=== PATIENT | female | born 1945 | race Caucasian/White ===

== ENCOUNTER 2016-09-18 05:56 | Day surgery (SDC) | payer OTHER ==
[~2016-09-18] VITALS: Ht 153.7 cm; Wt 70.0 kg
[~2016-09-18 05:56] MED LIST: ADVA100A INH; ALBU6.7H INH; CLON0.1T PO; GLIM2TAB PO; LEVO112T2 PO; METO50TA PO; OMEP40CA2 PO
[2016-09-18] MEDS ORDERED: FISHCAP4 PO (06:52)
[2016-09-18] MEDS ORDERED: CHLORHEXIDINE GLUCONATE 2 % 1 PACK (2 CLOTHS) TOPICAL SCH (07:00)
[2016-09-18] MEDS ORDERED: POVIDONE IODINE 5% (ANTISEPSIS KIT) 4 APPLICATIONS EACH NARE SCH (07:00)
[2016-09-18] MEDS ORDERED: MUPIROCIN 2% OINT 1 APPLIC/GM SYR EACH NARE SCH (07:00)
[2016-09-18] MEDS ORDERED: VANCOMYCIN 1000 MG/NS 250 ML - implanted port/tunneled catheter IV SCH ×2 (07:00)
[2016-09-18] MEDS ORDERED: SODIUM CHLORIDE 0.9% 1000 ML IV SCH (07:00)
[2016-09-18 07:05] VITALS: BP 163/81; PULSE 81; RESP 20; TEMP 97.9; O2SAT 97
[2016-09-18] MEDS ORDERED: fentaNYL CITRATE 250 MCG/5 ML AMP ONE (07:31)
[2016-09-18] MEDS ORDERED: MIDAZOLAM HCL 5 MG/5 ML VIAL ONE (07:31)
[2016-09-18] MEDS ORDERED: LIDOCAINE 1%/EPINEPHrine 1:100,000 SOLN 20 ML VIAL ONE (08:12)
[2016-09-18] MEDS ORDERED: ceFAZolin 2 GM PREMIX 50 ML ONE (08:39)
[2016-09-18 09:15] VITALS: BP 158/82; PULSE 77; RESP 16; TEMP 97.5; O2SAT 92
--- NOTE | 2016-09-18 09:22 | PD.RAD ---
Post Procedure Progress Note Pre Procedure Diagnosis: (1) Lung cancer Post Procedure Diagnosis: (1) Lung cancer Procedure Date: Sep 18, 2016 Supervising Radiologist: Phil Back Proceduralist/Assist: RT King(R) Anesthesia: Local, Conscious Sedation Plan of Activity Patient to Unit: ROPU Patient Condition: Good See PACS Report for procedural detail/treatment Central Venous Access Device Procedure 1 Right Internal Jugular Infusaport Placement single lumen Panamanian: 8 Phil Back MD Sep 18, 2016 09:22
[2016-09-18 09:30] VITALS: BP 142/74; PULSE 72; RESP 18; O2SAT 99
[2016-09-18] MEDS ORDERED: SODIUM CHLORIDE 0.9% FLUSH 10 ML FLUSH IVF PRN (09:30)
[2016-09-18 10:00] VITALS: BP 146/74; PULSE 67; RESP 18; O2SAT 98
[2016-09-18 10:30] VITALS: BP 156/84; PULSE 74; RESP 18; O2SAT 97
--- NOTE | 2016-09-18 13:20 | RADRPT ---
EXAM DATE/TIME: 09/18/2016 08:13 [facility] COMPARISON: No previous studies available for comparison. INDICATIONS : Patient with history of lung cancer in need of port placement. MEDICAL HISTORY : 1.Lung cancer 2.Asthma 3.COPD 4.Diabetes 5.Heart attack/NV 6.High cholesterol 7.Hyperthyroidism 8.MS 9.Stroke SURGICAL HISTORY : 1.Biopsy 2.Cataract removal 3.Hear bypass 4.Hysterectomy 5.Colonoscopy ENCOUNTER: Initial ACUITY: 4-6 months PAIN SCORE: 0/10 FLUORO TIME: 0.8 minutes IMAGE SERIES: 1 SEDATION TIME: 30 minutes ACCESS: Right internal jugular vein SEDATION: 1.) 2 mg midazolam (Versed) IV 2.) 100 mcg fentanyl (Sublimaze) IV Prophylactic antibiotics were administered with appropriate pre-procedure timing. Vancomycin within 2 hours of procedure, Ancef (or alternative) within 1 hour of procedure. DEVICE: 1. 8 British single lumen Angiodynamics Smart power port PROCEDURE : 1. Continuous pulse oximetry and EKG monitoring. 2. Intravenous conscious sedation. 3. Ultrasound guidance for venous access. 4. Fluoroscopic guided implantable central venous port placement. The patient was placed supine. The neck was prepped in sterile fashion. Full sterile technique was u sed, including cap, mask, sterile gloves and gown, and a large sterile sheet. Hand hygiene and 2% ch lorhexidine Betadine was utilized per protocol for cutaneous antisepsis with appropriate dry time for site. The skin and subcutaneous tissues were infiltrated with local anesthetic solution. Under direct ultrasound guidance, central venous access was accomplished in the targeted vessel. The ultrasound images depicting access guidance were stored and saved to PACS for permanent record. A s ubcutaneous pocket was created using blunt dissection. The port was introduced to the pocket. The c atheter tubing was fed through a subcutaneous tunnel to the venotomy site. The catheter tubing was c ut to a suitable length and then was introduced through a valved Peel-Away sheath and positioned with catheter tubing tip at the cavo-atrial junction level. The pocket incision was closed with subcutic ular Vicryl suture. Steri-Strips were applied. The port was flushed and locked with heparin solutio n per protocol. Sterile dressing was applied to the site. The patient tolerated the procedure well. Conscious sedation was performed with the prescribed dosages and duration as above in the presence of an independent trained radiology nurse to assist in the monitoring of the patient. EKG and oximetry remained stable throughout the procedure. The patient tolerated the procedure well and there were no complications. The patient was sent to post anesthesia recovery in stable condition. CONCLUSION: Uncomplicated ultrasound and fluoroscopic guided implanted central venous port catheter placement as described in detail above. An 8 [employer] Power port was placed. Phil Back MD on September 18, 2016 at 13:18 Board Certified Radiologist. This report was verified electronically.
== END 2016-09-18 11:02 | disposition home or self-care (01) ==
LOC: HRIP 05:56 → HROP 05:56
PROVIDERS: ATTEND Internal Medicine Hematology & Oncology
DX: C34.12 Malignant neoplasm of upper lobe, left bronchus or lung (principal); J44.9 Chronic obstructive pulmonary disease, unspecified; E11.9 Type 2 diabetes mellitus without complications; I25.2 Old myocardial infarction; E78.00 Pure hypercholesterolemia, unspecified; E05.90 Thyrotoxicosis, unspecified without thyrotoxic crisis or storm; Z86.73 Personal history of transient ischemic attack (TIA), and cerebral infarction without residual deficits
CPT/HCPCS: 36561; 76937; 77001; 99152; 99153; C1788; J0690; J1642; J2250; J3010; J3370; J7030; J7050

== ENCOUNTER 2016-10-30 15:08 | Inpatient (IN) | payer OTHER, MEDICARE ==
[~2016-10-30] VITALS: Ht 157.5 cm; Wt 69.1 kg
[~2016-10-30 15:08] MED LIST changes: +FISHCAP4 PO
[2016-10-30 15:11] VITALS: BP 172/84; PULSE 86; RESP 28; TEMP 97.4; O2SAT 93
[2016-10-30 15:13] VITALS: BP 166/77; PULSE 80; RESP 24; TEMP 98.3; O2SAT 100
[2016-10-30] MEDS ORDERED: METF1000 PO (15:21)
[2016-10-30] MEDS ORDERED: FUROSEMIDE 40 MG/4 ML VIAL IV PUSH ONE (15:45)
[2016-10-30] MEDS ORDERED: RESP: ALBUTEROL 2.5 MG/IPRATROPIUM 0.5 MG NEB (SCH) NEB ONE (15:45)
--- NOTE | 2016-10-30 15:48 | PD ---
HPI Chief Complaint: Respiratory Distress Time Seen by Provider: 15:26 Travel History International Travel<30 days: No Contact w/Intl Traveler<30days: No Traveled to known affect area: No History of Present Illness HPI This patient went to the oncology center today to get her IV chemotherapy. While there CBC was drawn and she was found to be anemic. She's been short of breath. She is fatigued. She is sent here for IV blood transfusion. Severity is moderate. No alleviating factors. She has lung cancer. In history of COPD but no longer smoking. She uses nebulizer at home but not oxygen. Symptoms have no alleviating factors. Duration 3 days PFSH Past Medical History Arthritis: Yes Asthma: No Autoimmune Disease: Yes (SEE ABOVE) Blood Disorders: No Heart Rhythm Problems: No Cancer: Yes (lung cancer) Cardiac Catheterization: Yes Cardiovascular Problems: Yes (cabg) High Cholesterol: Yes Chemotherapy: Yes (today) Chest Pain: Yes Congestive Heart Failure: No Cirrhosis: Yes COPD: No Cerebrovascular Accident: Yes Coronary Artery Disease: Yes Diabetes: Yes (TYPE 2) Patient Takes Glucophage: Yes Diminished Hearing: Yes (BOTH PARTIAL) Endocrine: Yes Gastrointestinal Disorders: Yes GERD: Yes Glaucoma: No Genitourinary: No Headaches: Yes Hepatitis: No Hiatal Hernia: No Heparin Induced Thrombocytopen: No Hypertension: Yes Immune Disorder: Yes (MULTIPLE SCLEROSIS) Medical other: No Musculoskeletal: Yes Neurologic: Yes (MS) Psychiatric: No Reproductive: No Respiratory: Yes (copd) Integumentary: Yes (PSORIASIS) Immunizations Current: Yes Migraines: No Myocardial Infarction: Yes (2006) Renal Failure: No Seizures: No Sickle Cell Disease: No Sleep Apnea: No Thyroid Disease: Yes Ulcer: No Menopausal: Yes Past Surgical History Abdominal Surgery: Yes (EXP LAP) AICD: No Appendectomy: No Arteriovenous Shunt: No Cardiac Surgery: Yes (CABG ) Cholecystectomy: No Coronary Artery Bypass Graft: Yes (X1999) Ear Surgery: No Endocrine Surgery: No Eye Surgery: Yes (bilateral cataract sx) Genitourinary Surgery: No Gynecologic Surgery: Yes (HYSTERECTOMY) Hysterectomy: Yes Insulin Pump: No Joint Replacement: No Neurologic Surgery: No Oral Surgery: Yes (TEETH REMOVED) Pacemaker: No Thoracic Surgery: Yes (CABG, left thoracoty andry lobectomy) Other Surgery: Yes Social History Alcohol Use: No (NONE SINCE 1979) Tobacco Use: No (APPROX 1 PPD X 50 YRS, RECENTLY DOWN TO 10 CIAGARETTES / DAY) Substance Use: No Allergies-Medications (Allergen,Severity, Reaction): Coded Allergies: Sulfa (Sulfonamide Antibiotics) (Unverified Allergy, Severe, Swelling, ) aspirin (Unverified Allergy, Severe, Swelling, 10/09/16) atorvastatin (Unverified Allergy, Severe, VOMITING, 10/09/16) clarithromycin (Unverified Allergy, Severe, Swelling, 10/09/16) penicillin G (Unverified Allergy, Severe, Swelling, 10/09/16) Reported Meds & Prescriptions Reported Meds & Active Scripts Active Reported Metformin (Metformin HCl) 1,000 Mg Tab 1,000 Mg PO BIDPC With meals Fish Oil + D3 (Fish Oil-Cholecalciferol) 1,200-1,000 Mg-Unit Cap 1 Cap PO DAILY Omeprazole 40 Mg Cap 40 Mg PO DAILY Metoprolol Tartrate 50 Mg Tab 50 Mg PO BID Levothyroxine (Levothyroxine Sodium) 112 Mcg Tab 112 Mcg PO DAILY Glimepiride 2 Mg Tab 6 Mg PO DAILY Take with breakfast or first main meal Proventil Hfa 6.7 GM Inh (Albuterol Sulfate) 90 Mcg/Act Aer 1 Puff INH Q4H PRN Advair Diskus Inh (Fluticasone-Salmeterol Inh) 100-50 Mcg/Blist Aer 1 Puff INH BID Rinse mouth after use. Review of Systems General / Constitutional: No: Fever Eyes: No: Visual changes HENT: No: Headaches Cardiovascular: Positive: Edema, No: Chest Pain or Discomfort Respiratory: Positive: Shortness of Breath Gastrointestinal: No: Abdominal Pain Genitourinary: No: Dysuria Musculoskeletal: Positive: Weakness, Edema, No: Pain Skin: No Rash Neurologic: Positive: Weakness Psychiatric: No: Depression Endocrine: No: Polydipsia Hematologic/Lymphatic: No: Easy Bruising Physical Exam Narrative GENERAL: Well-nourished, well-developed patient with shortness of breath and weakness . SKIN: Focused skin assessment reveals no rash and nodules. Skin is Warm and dry. HEAD: Atraumatic. Normocephalic. EYES: Pupils equal and round. No scleral icterus. No injection or drainage. ENT: No nasal bleeding or discharge. Mucous membranes pink and moist. NECK: Trachea midline. No JVD. CARDIOVASCULAR: Regular rate and rhythm. No murmur appreciated. RESPIRATORY: No accessory muscle use. Diminished breath sounds, sparse basilar crackles, occasional rhonchi. Breath sounds equal bilaterally. GASTROINTESTINAL: Abdomen soft, non-tender, nondistended. Hepatic and splenic margins not palpable. MUSCULOSKELETAL: No obvious deformities. No clubbing. No cyanosis. Symmetric pitting edema the feet ankles and lower legs to the knees NEUROLOGICAL: Awake and alert. No obvious cranial nerve deficits. Motor grossly within normal limits. Normal speech. PSYCHIATRIC: Appropriate mood and affect; insight and judgment normal. Data Data Last Documented VS Vital Signs Date Time Temp Pulse Resp B/P (MAP) Pulse Ox O2 Delivery O2 Flow Rate FiO2 10/30/16 15:56 100 Nasal Cannula 2.00 10/30/16 15:13 98.3 80 24 166/77 (106) Orders Orders Basic Metabolic Panel (Bmp) (10/30/16 15:38) B-Type Natriuretic Peptide (10/30/16 15:38) Chest, Single Ap (10/30/16 ) Furosemide Inj (Lasix Inj) (10/30/16 15:45) Albuterol-Ipratropium Neb (Duoneb Neb) (10/30/16 15:45) Electrocardiogram (10/30/16 ) Place In Observation (10/30/16 ) Vital Signs (Adult) Q4H (10/30/16 16:44) Activity Oob With Assistance (10/30/16 16:44) Pool Hand / Telemetry .CONTINUOUS (10/30/16 16:44) Diet Heart Healthy (10/30/16 Dinner) Sodium Chloride 0.9% Flush (Ns Flush) (10/30/16 16:45) Sodium Chloride 0.9% Flush (Ns Flush) (10/30/16 21:00) Acetaminophen (Tylenol) (10/30/16 16:45) Ondansetron Inj (Zofran Inj) (10/30/16 16:45) Basic Metabolic Panel (Bmp) (10/31/16 06:00) Complete Blood Count With Diff (10/31/16 06:00) Resp Oxygen Adama C Titrat 1-4 L (10/30/16 ) Scd Bilateral/Knee High SHEYLA.BID (10/30/16 16:44) Naloxone Inj (Narcan Inj) (10/30/16 16:45) Docusate Sodium-Senna (Antoinette-Colace) (10/30/16 21:00) Magnesium Hydroxide Liq (Milk Of Magnesi (10/30/16 16:45) Sennosides (Senokot) (10/30/16 16:45) Bisacodyl Supp (Dulcolax Supp) (10/30/16 16:45) Lactulose Liq (Lactulose Liq) (10/30/16 16:45) Admit Order (Ed Use Only) (10/30/16 16:49) Labs Laboratory Tests Test 10/30/16 15:45 [facility] Medical Decision Making Medical Screen Exam Complete: Yes Emergency Medical Condition: Yes Medical Record Reviewed: Yes Differential Diagnosis Symptomatic anemia, chemotherapy side effect, CHF, COPD Narrative Course I have reviewed the patient's electronic medical record. Reviewed her oncologist note from 1 week ago. I reviewed her CBC from today showing hemoglobin of 8.7, down from week ago 10.9 Her port is accessed I gave her 40 no times IV Lasix I reviewed her EKG which shows sinus rhythm but no ST elevation or ectopy Extended cardiac monitoring shows sinus rhythm without ectopy I reviewed her chest x-ray shows pulmonary edema consistent with acute CHF Metabolic profile is pending I gave her a DuoNeb Patient will be admitted for acute CHF and symptomatic anemia. Saturations are running 93% on room air and I placed her on nasal cannula I think most importantly is a take care of the CHF with diuresis and then consider whether she needs transfusion at that point. At 8.7 that does not need to be done now. I reviewed with the hospitalist Diagnosis Primary Impression: Acute exacerbation of CHF (congestive heart failure) Qualified Codes: I50.23 - Acute on chronic systolic (congestive) heart failure Additional Impressions: Symptomatic anemia Lung cancer Qualified Codes: C34.90 - Malignant neoplasm of unspecified part of unspecified bronchus or lung Admitting Information Admitting Physician Requests: Ruben King MD Oct 30, 2016 15:48
[2016-10-30 15:56] VITALS: O2SAT 100
--- NOTE | 2016-10-30 16:16 | RADRPT ---
EXAM DATE/TIME: 10/30/2016 16:03 [facility] COMPARISON: No previous studies available for comparison. INDICATIONS : Short of breath. MEDICAL HISTORY : Carcinoma, lung. Chronic obstructive pulmonary disease. Diabetes mellitus type II. Myocardial inf arction. SURGICAL HISTORY : Hysterectomy. CABG. ENCOUNTER: Initial ACUITY: 1 day PAIN SCORE: 0/10 LOCATION: Bilateral chest FINDINGS: The cardiac silhouette is normal in transverse diameter. Median sternotomy wires are present. Infuse- a-Port is in place via right internal jugular approach with its tip in the superior vena cava. There are findings of congestive heart failure with interstitial and alveolar opacity bilaterally. There is left lower lobe atelectasis versus pneumonia. CONCLUSION: 1. Cardiomegaly and findings of congestive heart failure. 2. Left lower lobe atelectasis versus pneumonia. Austyn Gates MD on October 30, 2016 at 16:13 Board Certified Radiologist. This report was verified electronically.
[2016-10-30] MEDS ORDERED: BISACODYL 10 MG SUPP RECTAL PRN (16:45)
[2016-10-30] MEDS ORDERED: SENNOSIDES 8.6 MG TAB PO PRN (16:45)
[2016-10-30] MEDS ORDERED: LACTULOSE SYRUP 20 GM/30 ML CUP PO PRN (16:45)
[2016-10-30] MEDS ORDERED: ONDANSETRON HCL 4 MG/2 ML VIAL IVP PRN (16:45)
[2016-10-30] MEDS ORDERED: SODIUM CHLORIDE 0.9% FLUSH 10 ML FLUSH IV FLUSH PRN (16:45)
[2016-10-30] MEDS ORDERED: NALOXONE HCL 0.4 MG/ML AMP IV PRN (16:45)
[2016-10-30] MEDS ORDERED: ACETAMINOPHEN 325 MG TAB PO PRN (16:45)
[2016-10-30] MEDS ORDERED: MAGNESIUM HYDROXIDE SUSP 30 ML CUP PO PRN (16:45)
--- NOTE | 2016-10-30 16:45 | HHI.HP ---
[facility] Baron Lara MD (Paul) Admission Diagnosis Diagnoses: Travel History International Travel<30 Days: No Contact w/Intl Traveler <30 Da: No Traveled to Known Affected Are: No Past Family Social History Allergies: Coded Allergies: Sulfa (Sulfonamide Antibiotics) (Unverified Allergy, Severe, Swelling, ) aspirin (Unverified Allergy, Severe, Swelling, 10/09/16) atorvastatin (Unverified Allergy, Severe, VOMITING, 10/09/16) clarithromycin (Unverified Allergy, Severe, Swelling, 10/09/16) penicillin G (Unverified Allergy, Severe, Swelling, 10/09/16) Physical Exam Vital Signs Vital Signs Date Time Temp Pulse Resp B/P (MAP) Pulse Ox O2 Delivery O2 Flow Rate FiO2 10/30/16 15:56 100 Nasal Cannula 2.00 10/30/16 15:13 98.3 80 24 166/77 (106) 100 10/30/16 15:11 97.4 86 28 172/84 (113) 93 Physical Exam GENERAL: This is a well-nourished, well-developed patient, in no apparent distress. SKIN: No rashes, ecchymoses or lesions. Cool and dry. HEAD: Atraumatic. Normocephalic. No temporal or scalp tenderness. EYES: Pupils equal round and reactive. Extraocular motions intact. No scleral icterus. No injection or drainage. ENT: Nose without bleeding, purulent drainage or septal hematoma. Throat without erythema, tonsillar hypertrophy or exudate. Uvula midline. Airway patent. NECK: Trachea midline. No JVD or lymphadenopathy. Supple, nontender, no meningeal signs. CARDIOVASCULAR: Regular rate and rhythm without murmurs, gallops, or rubs. RESPIRATORY: Clear to auscultation. Breath sounds equal bilaterally. No wheezes , rales, or rhonchi. GASTROINTESTINAL: Abdomen soft, non-tender, nondistended. No hepato-splenomegaly , or palpable masses. No guarding. MUSCULOSKELETAL: Extremities without clubbing, cyanosis, or edema. No joint tenderness, effusion, or edema noted. No calf tenderness. Negative Homans sign bilaterally. NEUROLOGICAL: Awake and alert. Cranial nerves II through XII intact. Motor and sensory grossly within normal limits. Five out of 5 muscle strength in all muscle groups. Normal speech. Laboratory Laboratory Tests Test 10/30/16 15:45 Caprini VTE Risk Assessment Caprini Risk Assessment Model Point Value = 1 Point Value = 2 Point Value = 3 Point Value = 5 Age 41-60 Minor surgery BMI > 25 kg/m2 Swollen legs Varicose veins or History of unexplained or recurrent spontaneous Oral contraceptives or hormone replacement Sepsis (< 1 month) Serious lung disease, including pneumonia (< 1 month) Abnormal pulmonary function Acute myocardial infarction Congestive heart failure (< 1 month) History of inflammatory bowel disease Medical patient at bed rest Age 61-74 Arthroscopic surgery Major open surgery (> 45 min) Laparoscopic surgery (> 45 min) Malignancy Confined to bed (> 72 hours) Immobilizing plaster cast Central venous access Age >= 75 History of VTE Family history of VTE Factor V Leiden Prothrombin [id number] Lupus anticoagulant Anticardiolipin antibodies Elevated serum homocysteine Heparin-induced thrombocytopenia Other congenital or acquired thrombophilia Stroke (< 1 month) Elective arthroplasty Hip, pelvis, or leg fracture Acute spinal cord injury (< 1 month) Prophylaxis Regimen Total Risk Factor Score Risk Level Prophylaxis Regimen 0-1 Low Early ambulation 2 Moderate Order ONE of the following: *Sequential Compression Device (SCD) *Heparin 5000 units SQ BID 3-4 Higher Order ONE of the following medications: *Heparin 5000 units SQ TID *Enoxaparin/Lovenox 40 mg SQ daily (WT < 150 kg, CrCl > 30 mL/min) *Enoxaparin/Lovenox 30 mg SQ daily (WT < 150 kg, CrCl > 10-29 mL/min) *Enoxaparin/Lovenox 30 mg SQ BID (WT < 150 kg, CrCl > 30 mL/min) AND/OR *Sequential Compression Device (SCD) 5 or more Highest Order ONE of the following medications: *Heparin 5000 units SQ TID (Preferred with Epidurals) *Enoxaparin/Lovenox 40 mg SQ daily (WT < 150 kg, CrCl > 30 mL/min) *Enoxaparin/Lovenox 30 mg SQ daily (WT < 150 kg, CrCl > 10-29 mL/min) *Enoxaparin/Lovenox 30 mg SQ BID (WT < 150 kg, CrCl > 30 mL/min) AND *Sequential Compression Device (SCD) Ellie Martinez DO Oct 30, 2016 16:45
[2016-10-30 17:09] LABS: BICARBONATE 24.9 MEQ/L (21.0-32.0); POTASSIUM 4.2 MEQ/L (3.5-5.1)
[2016-10-30] MEDS ORDERED: GLUCAGON 1 MG/ML VIAL OTHER PRN (18:30)
[2016-10-30] MEDS ORDERED: DEXTROSE 50% IN WATER 50 ML VIAL(D50) IV PRN (18:30)
[2016-10-30 20:15] VITALS: BP 112/62; PULSE 77; RESP 17; TEMP 97.2; O2SAT 97
[2016-10-30] MEDS: DOCUSATE SODIUM 50 MG/SENNA 8.6 MG TAB PO SCH (20:31)
[2016-10-30] MEDS: SODIUM CHLORIDE 0.9% FLUSH 10 ML FLUSH IV FLUSH SCH (20:31)
--- NOTE | 2016-10-30 22:07 | HHI.HP ---
HPI Service [facility] Primary Care Physician Baron Lara MD (Paul) Admission Diagnosis Acute Congestive Heart Failure . Diagnoses: (1) Acute exacerbation of CHF (congestive heart failure) Chief Complaint: Difficulty breathing Travel History International Travel<30 Days: No Contact w/Intl Traveler <30 Da: No Traveled to Known Affected Are: No History of Present Illness Written by Jackie Riley, acting as scribe for Dr. Moran on 10/30/16 at 22:07. Patient reports difficulty breathing with minimal exertion since yesterday night. The patient states she had difficulty breathing even walking 10 feet in her home. She went to Dr. Neville's office for chemotherapy, got chemo, but was referred here for Bilateral lower extremity edema reported Denies ascites Orthopnea present; sleeps with 2 - 3 pillows The patient reports a cough since having lung surgery, dry cough Denies fever Reports nausea with vomiting on Saturday - states that she thinks it was food poisoning Also with diarrhea last week Vaginal bleeding noted yesterday while she was at [employer]; minimal vaginal bleeding noted today - "little spots" Denies dysuria, hematuria, hematochezia Reports black stool related to iron supplements Review of Systems Except as stated in HPI: all other systems reviewed are Neg Past Family Social History Past Medical History 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 Past Surgical History Hysterectomy CABG Coronary Angiogram Left thoracotomy with left upper lobectomy . Reported Medications Reported Meds & Active Scripts Active Reported Metformin (Metformin HCl) 1,000 Mg Tab 1,000 Mg PO BIDPC With meals Fish Oil + D3 (Fish Oil-Cholecalciferol) 1,200-1,000 Mg-Unit Cap 1 Cap PO DAILY Omeprazole 40 Mg Cap 40 Mg PO DAILY Metoprolol Tartrate 50 Mg Tab 50 Mg PO BID Levothyroxine (Levothyroxine Sodium) 112 Mcg Tab 112 Mcg PO DAILY Glimepiride 2 Mg Tab 6 Mg PO DAILY Take with breakfast or first main meal Proventil Hfa 6.7 GM Inh (Albuterol Sulfate) 90 Mcg/Act Aer 1 Puff INH Q4H PRN Advair Diskus Inh (Fluticasone-Salmeterol Inh) 100-50 Mcg/Blist Aer 1 Puff INH BID Rinse mouth after use. Allergies: Coded Allergies: Sulfa (Sulfonamide Antibiotics) (Unverified Allergy, Severe, Swelling, ) aspirin (Unverified Allergy, Severe, Swelling, 10/09/16) atorvastatin (Unverified Allergy, Severe, VOMITING, 10/09/16) clarithromycin (Unverified Allergy, Severe, Swelling, 10/09/16) penicillin G (Unverified Allergy, Severe, Swelling, 10/09/16) Active Ordered Medications Current Medications Furosemide (Lasix Inj) 40 mg ONCE ONCE IV PUSH Last administered on 10/30/16 15:59; Start 10/30/16 at 15:45; Stop 10/30/16 at 15:46; Status DC Albuterol/ Ipratropium (Duoneb Neb) 1 ampule ONCE ONCE NEB Last administered on 10/30/16 15:55; Start 10/30/16 at 15:45; Stop 10/30/16 at 15:46; Status DC Sodium Chloride (NS Flush) 2 ml UNSCH PRN IV FLUSH FLUSH AFTER USING IV ACCESS ; Start 10/30/16 at 16:45 Sodium Chloride (NS Flush) 2 ml BID IV FLUSH Last administered on 10/30/16 20: 31; Start 10/30/16 at 21:00 Acetaminophen (Tylenol) 650 mg Q4H PRN PO Headache, fever, pain 1-4; Start 10/30 at 16:45 Ondansetron HCl (Zofran Inj) 4 mg Q6H PRN IVP NAUSEA OR VOMITING; Start at 16:45 Naloxone HCl (Narcan Inj) 0.4 mg UNSCH PRN IV SEE LABEL COMMENTS; Start at 16:45 Senna/Docusate Sodium (Antoinette-Colace) 1 tab BID PO Last administered on 10/30/16 20:31; Start 10/30/16 at 21:00 Magnesium Hydroxide (Milk Of Magnesia Liq) 30 ml Q12H PRN PO MILD - MODERATE CONSTIPATION; Start 10/30/16 at 16:45 Sennosides (Senokot) 17.2 mg Q12H PRN PO MODERATE - SEVERE CONSTIPATION; Start 10/30/16 at 16:45 Bisacodyl (Dulcolax Supp) 10 mg DAILY PRN RECTAL SEVERE CONSITIPATION; Start at 16:45 Lactulose (Lactulose Liq) 30 ml DAILY PRN PO SEVERE CONSITIPATION; Start at 16:45 Dextrose (D50w (Vial) Inj) 50 ml UNSCH PRN IV HYPOGLYCEMIA-SEE COMMENTS; Start 10/30/16 at 18:30 Glucagon (Glucagon Inj) 1 mg UNSCH PRN OTHER HYPOGLYCEMIA-SEE COMMENTS; Start 10/30/16 at 18:30 Insulin Aspart (NovoLOG SUPPLEMENTAL SCALE) 1 ACHS SLIDING SCALE SQ ; Start 10/30/16 at 21:00 . Family History Father age 51 - cancer - widespread - uncertain etiology Mother with colon cancer Aunts with breast cancer . Social History Tobacco: quit smoking 4 months ago Alcohol: denies Illicit Drugs: denies . Physical Exam Vital Signs Vital Signs Date Time Temp Pulse Resp B/P (MAP) Pulse Ox O2 Delivery O2 Flow Rate FiO2 10/30/16 15:56 100 Nasal Cannula 2.00 10/30/16 15:13 98.3 80 24 166/77 (106) 100 10/30/16 15:11 97.4 86 28 172/84 (113) 93 Physical Exam GENERAL: This is a frail appearing elderly female patient, in no apparent distress. SKIN: No rashes. Cool and dry. HEAD: Atraumatic. Normocephalic. No temporal or scalp tenderness. EYES: Pupils equal round and reactive. No scleral icterus. No injection or drainage. ENT: Nose without bleeding, purulent drainage or septal hematoma. Airway patent. NECK: Trachea midline. No JVD or lymphadenopathy. Supple, nontender, no meningeal signs. CARDIOVASCULAR: Regular rate and rhythm without murmurs, gallops, or rubs. RESPIRATORY: Clear to auscultation. Breath sounds equal bilaterally. No wheezes , rales, or rhonchi. 2 + pitting lower extremity edema. GASTROINTESTINAL: Abdomen soft, non-tender, nondistended. No guarding. MUSCULOSKELETAL: Extremities without clubbing or cyanosis. No calf tenderness. NEUROLOGICAL: Awake and alert. Motor and sensory grossly within normal limits. Normal speech. . Laboratory Laboratory Tests Test 10/30/16 15:45 10/30/16 16:55 Blood Urea Nitrogen 15 Creatinine 0.57 Random Glucose 191 Calcium Level 8.4 Sodium Level 133 Potassium Level 4.2 Chloride Level 101 Carbon Dioxide Level 24.9 Anion Gap 7 Estimat Glomerular Filtration Rate 105 B-Type Natriuretic Peptide 1526 Result Diagram: 10/30/16 1545 Imaging Last Impressions Chest X-Ray 10/30/16 0000 Signed Impressions: Service Date/Time: Sunday, October 30, 2016 16:03 - CONCLUSION: 1. Cardiomegaly and findings of congestive heart failure. 2. Left lower lobe atelectasis versus pneumonia. MD Lay Cronin VTE Risk Assessment Capraymundo VTE Risk Assessment: Mod/High Risk (score >= 2) VTE Pharm Contraindication: Capanneliesei Risk Assessment Model Point Value = 1 Point Value = 2 Point Value = 3 Point Value = 5 Age 41-60 Minor surgery BMI > 25 kg/m2 Swollen legs Varicose veins or History of unexplained or recurrent spontaneous Oral contraceptives or hormone replacement Sepsis (< 1 month) Serious lung disease, including pneumonia (< 1 month) Abnormal pulmonary function Acute myocardial infarction Congestive heart failure (< 1 month) History of inflammatory bowel disease Medical patient at bed rest Age 61-74 Arthroscopic surgery Major open surgery (> 45 min) Laparoscopic surgery (> 45 min) Malignancy Confined to bed (> 72 hours) Immobilizing plaster cast Central venous access Age >= 75 History of VTE Family history of VTE Factor V Leiden Prothrombin [id number] Lupus anticoagulant Anticardiolipin antibodies Elevated serum homocysteine Heparin-induced thrombocytopenia Other congenital or acquired thrombophilia Stroke (< 1 month) Elective arthroplasty Hip, pelvis, or leg fracture Acute spinal cord injury (< 1 month) Prophylaxis Regimen Total Risk Factor Score Risk Level Prophylaxis Regimen 0-1 Low Early ambulation 2 Moderate Order ONE of the following: *Sequential Compression Device (SCD) *Heparin 5000 units SQ BID 3-4 Higher Order ONE of the following medications: *Heparin 5000 units SQ TID *Enoxaparin/Lovenox 40 mg SQ daily (WT < 150 kg, CrCl > 30 mL/min) *Enoxaparin/Lovenox 30 mg SQ daily (WT < 150 kg, CrCl > 10-29 mL/min) *Enoxaparin/Lovenox 30 mg SQ BID (WT < 150 kg, CrCl > 30 mL/min) AND/OR *Sequential Compression Device (SCD) 5 or more Highest Order ONE of the following medications: *Heparin 5000 units SQ TID (Preferred with Epidurals) *Enoxaparin/Lovenox 40 mg SQ daily (WT < 150 kg, CrCl > 30 mL/min) *Enoxaparin/Lovenox 30 mg SQ daily (WT < 150 kg, CrCl > 10-29 mL/min) *Enoxaparin/Lovenox 30 mg SQ BID (WT < 150 kg, CrCl > 30 mL/min) AND *Sequential Compression Device (SCD) Assessment and Plan Problem List: (1) Acute exacerbation of CHF (congestive heart failure) ICD Code: I50.9 - Heart failure, unspecified Status: Acute Assessment and Plan Acute exacerbation of CHF - BNP 1526 - CXR with cardiomegaly and findings of CHF and left lower lobe atelectasis vs pneumonia - Lasix 40 mg IV BID - monitor fluid balance with strict I and Os - monitor VS q4h - continuous cardiac telemetry to monitor for arrhythmias Non small cell lung adenocarcinoma - consult Dr. Neville COPD - Duo nebulizers q4h PRN sob/wheezing - supplemental oxygen titrated to maintain saturation > 92% Vaginal Bleeding in a patient with a hysterectomy - patient instructed to f/u with PCP as an outpatient for evaluation Type 2 Diabetes Mellitus - Accu-Cheks before meals and at bedtime with low-dose NovoLog sliding scale coverage - Hypoglycemia protocol - Monitor trends and blood glucose readings and adjust treatments as indicated DVT prophylaxis - SCDs This note was transcribed by tony [Jackie Riley]. I, Dr. Nelsy Moran personally performed the history, physical exam, and medical decision making; and confirmed the accuracy of the information in the transcribed note. Authenticated by Dr. Nelsy Moran on 10/30/16 at 22:07. Discussed Condition With Dr. Martinez (who accepted admission), senior staff psychologist, and patient . Physician Certification 2 Midnight Certification Type: Admission for Inpatient Services Order for Inpatient Services The services are ordered in accordance with Medicare regulations or non- Medicare payer requirements, as applicable. In the case of services not specified as inpatient-only, they are appropriately provided as inpatient services in accordance with the 2-midnight benchmark. Estimated LOS (days): 3 days is the estimated time the patient will need to remain in the hospital, assuming treatment plan goals are met and no additional complications. Post-Hospital Plan: Not yet determined Problem Qualifiers (1) Acute exacerbation of CHF (congestive heart failure): Qualified Codes: I50.23 - Acute on chronic systolic (congestive) heart failure Jackie Riley Oct 30, 2016 22:07 Nelsy Moran MD Oct 31, 2016 00:46
[2016-10-30 22:11] VITALS: PULSE 74
[2016-10-30] MEDS ORDERED: RESP: ALBUTEROL 2.5 MG/IPRATROPIUM 0.5 MG NEB (PRN) NEB ×2 (22:30)
[2016-10-30] MEDS: INSULIN ASPART SUPPLEMENTAL SCALE SQ SCH (23:18)
[2016-10-31] VITALS (12 sets, daily range): BP systolic 114–138; BP diastolic 56–64; PULSE 66–76; RESP 14–18; TEMP 96.2–97.7; O2SAT 94–99
[2016-10-31] MEDS: INSULIN ASPART SUPPLEMENTAL SCALE SQ SCH ×4 (06:00→21:53)
[2016-10-31 06:55] LABS: BASOPHIL % 0.2 % (0.0-2.0); EOSINOPHIL % 0.3 % (0.0-4.0); HEMATOCRIT 27.3 % (35.0-46.0); LYMPH % 7.9 % (9.0-44.0); LYMPHOCYTE # 0.6 TH/MM3 (1.0-4.8); MEAN CELL VOLUME 91.1 FL (80.0-100.0); MEAN CORPUSCULAR HEMOGLOBIN 30.4 PG (27.0-34.0); MEAN CORPUSCULAR HGB CONC 33.4 % (32.0-36.0); MONO % 9.5 % (0.0-8.0); NEUT % 82.1 % (16.0-70.0); PLATELET COUNT 118 TH/MM3 (150-450); RED CELL DISTRIBUTION WIDTH 17.7 % (11.6-17.2); WHITE BLOOD COUNT 7.3 TH/MM3 (4.0-11.0)
[2016-10-31] MEDS: LEVOTHYROXINE SODIUM 112 MCG TAB PO SCH (07:00)
[2016-10-31 07:05] LABS: HEMO FLAGS AUTO DIFF
[2016-10-31 07:17] LABS: BICARBONATE 29.2 MEQ/L (21.0-32.0); POTASSIUM 3.8 MEQ/L (3.5-5.1)
[2016-10-31 08:25] LABS: SCAN/DIFF AUTO DIFF CONFIRMED
[2016-10-31] MEDS: METOPROLOL TARTRATE 50 MG TAB PO SCH ×2 (08:29→21:50)
[2016-10-31] MEDS: PANTOPRAZOLE SOD 40 MG DELAYED RELEASE TAB PO SCH (08:29)
[2016-10-31] MEDS: DOCUSATE SODIUM 50 MG/SENNA 8.6 MG TAB PO SCH ×2 (08:29→21:53)
[2016-10-31] MEDS: SODIUM CHLORIDE 0.9% FLUSH 10 ML FLUSH IV FLUSH SCH ×2 (08:32→21:51)
[2016-10-31] MEDS ORDERED: FUROSEMIDE 40 MG/4 ML VIAL IV PUSH SCH (09:00)
--- NOTE | 2016-10-31 14:47 | EKG ---
Date Performed: 10/30/2016 Time Performed: 15:54:29 PTAGE: 71 years EKG: Normal Sinus rhythm MODERATE INTRAVENTRICULAR CONDUCTION DELAY MODERATE T-WAVE ABNORMALITY, CONSIDER ANTEROLATERAL ISCHE SHARI Diffuse ST-T wave changes with T-wave inversions that are new from the old tracing. Clinical dieudonne elation needed. ABNORMAL ECG PREVIOUS TRACING : 10/07/2009 19.19 DOCTOR: Nixon Soliz Interpretating Date/Time 10/31/2016 14:44:58
[2016-10-31] MEDS: TORSEMIDE 5 MG TAB PO SCH (17:03)
[2016-10-31] MEDS: LEVOFLOXACIN 500 MG TAB PO SCH (17:03)
--- NOTE | 2016-10-31 21:32 | HHI.PR ---
Subjective Remarks Patient was seen around 11:30AM. Patient is currently doing well. She reports significant improvement of her breathing. She states she could not walk even a short distance prior to this admission. Today, she is able to ambulate well. No fever, chills. Objective Vitals Vital Signs Date Time Temp Pulse Resp B/P (MAP) Pulse Ox O2 Delivery O2 Flow Rate FiO2 10/31/16 20:00 96.2 72 18 114/56 (75) 96 10/31/16 16:00 97.6 68 14 118/58 (78) 94 10/31/16 13:31 73 10/31/16 12:00 97.6 66 18 134/60 (84) 95 10/31/16 10:27 99 Nasal Cannula 2.00 10/31/16 08:00 97.7 70 16 128/59 (82) 97 10/31/16 04:15 96.4 72 17 128/58 (81) 98 10/31/16 04:05 73 10/31/16 00:15 97.0 72 16 138/64 (88) 94 10/31/16 00:04 76 10/30/16 22:11 74 I/O 10/30/16 10/30/16 10/30/16 10/31/16 10/31/16 10/31/16 07:00 15:00 23:00 07:00 15:00 23:00 Intake Total 75 ml 340 ml Output Total 500 ml 500 ml 1000 ml Balance -425 ml -160 ml -1000 ml Intake Oral 75 ml 340 ml Output Urine Total 500 ml 500 ml 1000 ml # Voids 2 # Bowel Movements 4 Result Diagram: 10/31/16 0555 10/31/16 0555 Imaging Last Impressions Chest X-Ray 10/30/16 0000 Signed Impressions: Service Date/Time: Sunday, October 30, 2016 16:03 - CONCLUSION: 1. Cardiomegaly and findings of congestive heart failure. 2. Left lower lobe atelectasis versus pneumonia. Austyn Gates MD Objective Remarks GENERAL: AOX3, NAD. SKIN: Warm and dry. HEAD: Normocephalic. EYES: No scleral icterus. No injection or drainage. NECK: Supple, trachea midline. No JVD or lymphadenopathy. CARDIOVASCULAR: Regular rate and rhythm without murmurs, gallops, or rubs. RESPIRATORY: Breath sounds equal bilaterally. No accessory muscle use. GASTROINTESTINAL: Abdomen soft, non-tender, nondistended. MUSCULOSKELETAL: No cyanosis, or edema. BACK: Nontender without obvious deformity. No CVA tenderness. Procedures None. A/P Problem List: (1) Acute exacerbation of CHF (congestive heart failure) ICD Code: I50.9 - Heart failure, unspecified Status: Acute (2) Pneumonia ICD Code: J18.9 - Pneumonia, unspecified organism (3) Hypothyroidism ICD Code: E03.9 - Hypothyroidism, unspecified Assessment and Plan Ms. Andrade is a pleasant 71 year old female with a history of lung cancer who was admitted to the hospital on 10/30/2016 due to shortness of breath, fatigue. She was undergoing IV chemotherapy at the Oncology center when she started experiencing shortness of breath. Anemia was suspected. However, on admission, her hemoglobin was 8.7, 9.1. CXR showed evidence of CHF. Later on BNP was found to be elevated 1526. - Acute exacerbation of congestive heart failure - likely diastolic. - CAD - remote history of CABG. - No recent Echo. Patient follows up with Dr. Perdomo. - Patient was not on any diuretics. - Will switch IV lasix from 40mg IV BID to Torsemide 10mg BID. - Torsemide dosage can be adjusted. - Since patient is clinically much improved, Echo study can be done at her neuropathologist's office. - Continue Metoprolol 50mg BID. - Will discuss with pt regarding statin. She is currently on no statin. - Pneumonia - CXR reviewed. Showed possible pneumonia. - Will start patient on Levaquin 500mg Qday x 7 days. - DuoNeb PRN. - Incentive spirometry - Diabetes mellitus - Currently on Sliding scale insulin. - We will continue metformin 1000mg BID on discharge. - Glimepiride is currently on hold. 6mg Qday is probably too much. - Goal BS in the hospital 140-180. - Hypothyroidism - continue Levothyroxine 112 mcg Qday. - GERD - continue PPI. Full code. SCDs. Problem Qualifiers (1) Acute exacerbation of CHF (congestive heart failure): Qualified Codes: I50.23 - Acute on chronic systolic (congestive) heart failure Ellie Martinez DO Oct 31, 2016 21:32
[2016-11-01] VITALS (9 sets, daily range): BP systolic 101–141; BP diastolic 52–62; PULSE 62–73; RESP 18–20; TEMP 96.3–98.5; O2SAT 95–98
[2016-11-01] MEDS: INSULIN ASPART SUPPLEMENTAL SCALE SQ SCH ×2 (05:27→12:52)
[2016-11-01] MEDS: LEVOTHYROXINE SODIUM 112 MCG TAB PO SCH (05:27)
--- NOTE | 2016-11-01 07:55 | MB ---
cc: LORETA PAGAN M.D. DATE OF CONSULTATION 10/31/2016 REASON FOR CONSULTATION Consult requested by hospitalist for evaluation of lung cancer in a patient who is admitted for congestive heart failure. HISTORY OF PRESENT ILLNESS Cari is a 71-year-old very pleasant white female. She was diagnosed with non-small cell lung cancer adenocarcinoma in May of this year. She underwent surgery by Dr. Valdez on August 13. She had left upper lobe lobectomy and the pathology report showed a moderately differentiated adenocarcinoma, 2.4 cm, with the visceral pleural invasion. The mediastinal lymph node was positive 03/05. She was found to have a Stage III [id number] lung cancer. The EGFR, PD-L1, ALK and ROS were negative. She was started on adjuvant, carboplatin and Gemzar chemotherapy on September 21. The patient has tolerated the treatment well. The patient started having difficulty breathing especially on exertion. She also noticed swelling of her lower legs. She came to the office yesterday for day #8 of the chemotherapy. After the chemotherapy was completed, she was having more shortness of breath and she was referred to the emergency room for further evaluation. The patient had blood tests. The BNP came back very high. This was consistent with exacerbation of congestive heart failure. The patient is admitted to the hospital. The patient has been getting diuretics. The swelling in her both legs is improving. She does not have shortness of breath at rest but she still short of breath on exertion. She denies any cough. She denies any nausea or vomiting. The rest of the review of systems is negative. PAST MEDICAL HISTORY 1. Non-small cell lung cancer status post surgery, currently on chemotherapy. 2. Asthma. 3. COPD. 4. Diabetes mellitus. 5. Coronary artery disease status post SD. 6. Hypercholesterolemia. 7. Hypothyroidism. 8. History of multiple sclerosis. 9. History of stroke. PAST SURGICAL HISTORY 1. Cataract. 2. Coronary artery bypass surgery. 3. Hysterectomy. 4. Colonoscopy. 5. Lung biopsy. 6. Tdever-Y-Ooih. ALLERGIES ASPIRIN. BIOTIN. LIPITOR. ONDANSETRON. PENICILLIN. SENNA. SULFADIAZINE. MEDICATIONS 1. Advair Diskus. 2. Albuterol. 3. Glimepiride. 4. Levothyroxine. 5. Metoprolol. 6. Omeprazole. 7. Chemotherapy of carboplatin and Gemzar. FAMILY HISTORY Noncontributory. FAMILY HISTORY Mother from colon cancer. Father from laryngeal cancer. The patient has two sisters and two brothers, all four alive and well. She does not have any children. SOCIAL HISTORY The patient is a . She used to smoke cigarettes one pack a day for 57 years, recently stopped smoking. She does not drink alcohol. PHYSICAL EXAMINATION GENERAL: A well-developed, well-nourished white female in no apparent distress. VITAL SIGNS: Temperature 97.7, heart rate is 70, blood pressure 128/59, O2 saturation 97% on 2 liters nasal cannula. HEENT: PERRLA, EOMI, anicteric. No oral lesions are noted. NECK: No lymphadenopathy noted. LUNGS: Clear. No wheezing, rhonchi or rales. HEART: Regular rate and rhythm. ABDOMEN: Soft, nontender. No hepatosplenomegaly. EXTREMITIES: Edema noted. SKIN: No significant lesions are noted. NEUROLOGY: Awake, alert, oriented x 3. ASSESSMENT 1. Exacerbation of congestive heart failure. 2. Non-small cell lung cancer status post surgery currently on adjuvant chemotherapy, carboplatin and Gemzar. 3. Anemia due to the chemotherapy. 4. Thrombocytopenia due to the chemotherapy. PLAN I have reviewed her available records and I have discussed with the patient regarding the reason for her admission to the hospital. She has exacerbation of congestive heart failure. We discussed her CBC results which show a white count of 7.3, hemoglobin 9.1, hematocrit is 27.3, plate count is 118. Her anemia and mild thrombocytopenia are due to chemotherapy. She does not require any transfusion. We also discussed about the basic metabolic profile which is normal except the sodium is 135, glucose is 108. BNP is 1526 which is quite high consistent with congestive heart failure. The patient is being managed by the hospitalist for her congestive heart failure. She has been getting diuretics. I reviewed the chest x-ray findings which show cardiomegaly and findings consistent with congestive heart failure. She also has left lower lobe atelectasis versus pneumonia. The patient is not neutropenic. She does not require any growth factor support. The patient has asked questions and these were answered to her satisfaction. Thank you for asking my opinion. Daisy Sorathia, MD /SSB /8:35 PM /7:37 AM [email or web address]
[2016-11-01] MEDS: DOCUSATE SODIUM 50 MG/SENNA 8.6 MG TAB PO SCH (09:55)
[2016-11-01] MEDS: LEVOFLOXACIN 500 MG TAB PO SCH (09:56)
[2016-11-01] MEDS: PANTOPRAZOLE SOD 40 MG DELAYED RELEASE TAB PO SCH (09:56)
[2016-11-01] MEDS: METOPROLOL TARTRATE 50 MG TAB PO SCH (09:56)
[2016-11-01] MEDS: SODIUM CHLORIDE 0.9% FLUSH 10 ML FLUSH IV FLUSH SCH (09:57)
[2016-11-01] MEDS: TORSEMIDE 5 MG TAB PO SCH (10:27)
[2016-11-01] MEDS ORDERED: TORS5TAB2 PO (10:42)
[2016-11-01] MEDS ORDERED: LEVA500T20 PO (10:42)
--- NOTE | 2016-11-01 11:18 | HHI.PR ---
Subjective Remarks Follow-up for atelectasis versus pneumonia, congestive heart failure. Patient is currently doing well. Remains on room air. Denies any acute concerns. Objective Vitals Vital Signs Date Time Temp Pulse Resp B/P (MAP) Pulse Ox O2 Delivery O2 Flow Rate FiO2 11/01/16 09:23 97 2.00 11/01/16 08:00 98.5 73 20 141/62 (88) 95 11/01/16 08:00 73 11/01/16 04:03 72 11/01/16 04:00 96.4 72 18 108/52 (70) 98 11/01/16 00:02 62 11/01/16 00:00 96.3 72 18 101/57 (72) 97 10/31/16 20:05 74 10/31/16 20:00 96.2 72 18 114/56 (75) 96 10/31/16 19:44 95 Nasal Cannula 2.00 10/31/16 16:00 97.6 68 14 118/58 (78) 94 10/31/16 13:31 73 10/31/16 12:00 97.6 66 18 134/60 (84) 95 I/O 10/31/16 10/31/16 10/31/16 11/01/16 11/01/16 11/01/16 07:00 15:00 23:00 07:00 15:00 23:00 Intake Total 75 ml 340 ml 240 ml Output Total 500 ml 500 ml 1000 ml 300 ml Balance -425 ml -160 ml -1000 ml -60 ml Intake Oral 75 ml 340 ml 240 ml Output Urine Total 500 ml 500 ml 1000 ml 300 ml # Voids 2 # Bowel Movements 4 Result Diagram: 10/31/16 0555 10/31/16 0555 Imaging Last Impressions Chest X-Ray 10/30/16 0000 Signed Impressions: Service Date/Time: Sunday, October 30, 2016 16:03 - CONCLUSION: 1. Cardiomegaly and findings of congestive heart failure. 2. Left lower lobe atelectasis versus pneumonia. Austyn Gates MD Objective Remarks GENERAL: AOX3, NAD. SKIN: Warm and dry. HEAD: Normocephalic. EYES: No scleral icterus. No injection or drainage. NECK: Supple, trachea midline. No JVD or lymphadenopathy. CARDIOVASCULAR: Regular rate and rhythm without murmurs, gallops, or rubs. RESPIRATORY: Breath sounds equal bilaterally. No accessory muscle use. GASTROINTESTINAL: Abdomen soft, non-tender, nondistended. MUSCULOSKELETAL: No cyanosis, or edema. BACK: Nontender without obvious deformity. No CVA tenderness. Procedures None. A/P Problem List: (1) Acute exacerbation of CHF (congestive heart failure) ICD Code: I50.9 - Heart failure, unspecified Status: Acute (2) Pneumonia ICD Code: J18.9 - Pneumonia, unspecified organism (3) Hypothyroidism ICD Code: E03.9 - Hypothyroidism, unspecified Assessment and Plan Ms. Andrade is a pleasant 71 year old female with a history of lung cancer who was admitted to the hospital on 10/30/2016 due to shortness of breath, fatigue. She was undergoing IV chemotherapy at the Oncology center when she started experiencing shortness of breath. Anemia was suspected. However, on admission, her hemoglobin was 8.7, 9.1. CXR showed evidence of CHF. Later on BNP was found to be elevated 1526. - Acute exacerbation of congestive heart failure - likely diastolic. - CAD - remote history of CABG. - No recent Echo. Patient follows up with Dr. Perdomo. - Patient was not on any diuretics. - Will switch IV lasix from 40mg IV BID to Torsemide 10mg BID. - Torsemide dosage can be adjusted. - Since patient is clinically much improved, Echo study can be done at her juvenile justice officer's office. - Continue Metoprolol 50mg BID. - Pneumonia - CXR reviewed. Showed possible pneumonia. - Levaquin 500mg Qday x 7 days. - DuoNeb PRN. - Incentive spirometry - Diabetes mellitus - Currently on Sliding scale insulin. - We will continue metformin 1000mg BID on discharge. - Glimepiride is currently on hold. 6mg Qday is probably too much. - Goal BS in the hospital 140-180. - Hypothyroidism - continue Levothyroxine 112 mcg Qday. - GERD - continue PPI. Full code. SCDs. Problem Qualifiers (1) Acute exacerbation of CHF (congestive heart failure): Qualified Codes: I50.23 - Acute on chronic systolic (congestive) heart failure (2) Pneumonia: Qualified Codes: J18.1 - Lobar pneumonia, unspecified organism Ellie Martinez DO Nov 01, 2016 11:18
--- NOTE | 2016-11-01 11:18 | PD.ONC.PN ---
Subjective Subjective Remarks Afebrile overnight. Patient feeling much better today. She is excited to be discharged home. Objective Data Date Time Temp Pulse Resp B/P (MAP) Pulse Ox O2 Delivery O2 Flow Rate FiO2 11/01/16 09:23 97 2.00 11/01/16 08:00 98.5 73 20 141/62 (88) 95 11/01/16 08:00 73 11/01/16 04:03 72 11/01/16 04:00 96.4 72 18 108/52 (70) 98 11/01/16 00:02 62 11/01/16 00:00 96.3 72 18 101/57 (72) 97 10/31/16 20:05 74 10/31/16 20:00 96.2 72 18 114/56 (75) 96 10/31/16 19:44 95 Nasal Cannula 2.00 10/31/16 16:00 97.6 68 14 118/58 (78) 94 10/31/16 13:31 73 10/31/16 12:00 97.6 66 18 134/60 (84) 95 11/01/16 11/01/16 11/01/16 07:00 15:00 23:00 Intake Total 240 ml Output Total 300 ml Balance -60 ml Result Diagram: 10/31/16 0555 10/31/16 0555 Administered Medications Medications (Trade) Dose Ordered Sig/Hiral Route PRN Reason Start Time Stop Time Status Last Admin Dose Admin Sodium Chloride (NS Flush) 2 ml BID IV FLUSH 10/30/16 21:00 11/01/16 09:57 Senna/Docusate Sodium (Antoinette-Colace) 1 tab BID PO 10/30/16 21:00 10/31/16 08:29 Insulin Aspart (NovoLOG SUPPLEMENTAL SCALE) 1 ACHS SLIDING SCALE SQ 10/30/16 21:00 10/31/16 12:24 Levothyroxine Sodium (Synthroid) 112 mcg DAILY@0700 PO 10/31/16 07:00 11/01/16 05:27 Metoprolol Tartrate (Lopressor) 50 mg BID PO 10/31/16 09:00 11/01/16 09:56 Pantoprazole Sodium (Protonix) 40 mg DAILY PO 10/31/16 09:00 11/01/16 09:56 Torsemide (Demadex) 10 mg BID@09,18 PO 10/31/16 18:00 11/01/16 10:27 Levofloxacin (Levaquin) 500 mg DAILY PO 10/31/16 16:00 11/07/16 15:59 11/01/16 09:56 Objective Remarks GENERAL: Middle aged female upright in bed in nad. SKIN: Warm and dry. HEAD: Normocephalic. EYES:No injection or drainage. NECK: Supple, trachea midline. CARDIOVASCULAR: Regular rate and rhythm RESPIRATORY: Breath sounds equal bilaterally. No accessory muscle use. GASTROINTESTINAL: Abdomen soft, non-tender, nondistended. EXTREMITIES: No cyanosis, or edema. NEUROLOGICAL: No obvious focal deficit. Awake, alert, and oriented x3. Assessment/Plan Problem List: (1) Lung cancer ICD Codes: C34.90 - Malignant neoplasm of unspecified part of unspecified bronchus or lung Status: Acute Plan: 11/01: will resume further treatment outpatient once current issues have resolved. --diagnosed with non-small cell lung cancer adenocarcinoma in May of this year. --left upper lobe lobectomy, 08/13-->pathology report showed a moderately differentiated adenocarcinoma, 2.4 cm, with the visceral pleural invasion. --mediastinal lymph node was positive 03/05. +Stage III [id number] lung cancer. EGFR, PD-L1, ALK and ROS were negative. --was started on adjuvant, carboplatin and Gemzar chemotherapy on September 21. tolerated the treatment well. (2) Acute exacerbation of CHF (congestive heart failure) ICD Codes: I50.9 - Heart failure, unspecified Status: Acute Plan: --on diuretics, hospitalist managing --patient came to the clinic for D8 of chemotherapy and was found to be severely dyspneic, BNP elevated. --CXR showed cardiomegaly, also with LLL atelectasis versus PNA. (3) Anemia due to chemotherapy ICD Codes: D64.81 - Anemia due to antineoplastic chemotherapy; T45.1X5A - Adverse effect of antineoplastic and immunosuppressive drugs, initial encounter (4) thrombocytopenia due to chemotherapy Assessment 71y/o female admitted with CHF. Oncology consulted for for evaluation of lung cancer h/o Non-small cell lung cancer status post surgery, currently on chemotherapy. Asthma. COPD. Diabetes mellitus. Coronary artery disease status post [place]. Hypercholesterolemia. Hypothyroidism. History of multiple sclerosis. History of stroke. Cataract. Coronary artery bypass surgery. Hysterectomy. Colonoscopy. Lung biopsy. Infuse-A -Port. Attending Statement Patient is less short of breath and feeling better She wants to go home Okay to discharge Will follow as an outpatient Resume chemotherapy as an outpatient The exam, history, and the medical decision-making described in the above note were completed with the assistance of the mid-level provider. I reviewed and agree with the findings presented. I attest that I had a [id number] encounter with the patient on the same day, and personally performed and documented my assessment and findings in the medical record. Problem Qualifiers (1) Lung cancer: Qualified Codes: C34.90 - Malignant neoplasm of unspecified part of unspecified bronchus or lung (2) Acute exacerbation of CHF (congestive heart failure): Qualified Codes: I50.23 - Acute on chronic systolic (congestive) heart failure Iris Maddox Nov 01, 2016 11:18 Jose Neville MD Nov 01, 2016 22:12
--- NOTE | 2016-11-01 14:40 | HHI.DS ---
Discharge Summary Admission Date Oct 30, 2016 at 16:51 Discharge Date: Nov 01, 2016 Admitting Diagnosis Acute Congestive Heart Failure . (1) Acute exacerbation of CHF (congestive heart failure) ICD Code: I50.9 - Heart failure, unspecified Diagnosis: Principal Status: Acute (2) Pneumonia ICD Code: J18.9 - Pneumonia, unspecified organism Diagnosis: Principal (3) Hypothyroidism ICD Code: E03.9 - Hypothyroidism, unspecified Procedures None. Brief History - From Admission Written by Jackie Riley, acting as scribe for Dr. Moran on 10/30/16 at 22:07. Patient reports difficulty breathing with minimal exertion since yesterday night. The patient states she had difficulty breathing even walking 10 feet in her home. She went to Dr. Neville's office for chemotherapy, got chemo, but was referred here for Bilateral lower extremity edema reported Denies ascites Orthopnea present; sleeps with 2 - 3 pillows The patient reports a cough since having lung surgery, dry cough Denies fever Reports nausea with vomiting on Saturday - states that she thinks it was food poisoning Also with diarrhea last week Vaginal bleeding noted yesterday while she was at [facility]; minimal vaginal bleeding noted today - "little spots" Denies dysuria, hematuria, hematochezia Reports black stool related to iron supplements CBC/BMP: 10/31/16 0555 10/31/16 0555 Significant Findings Laboratory Tests Test 10/30/16 15:45 10/30/16 16:55 10/31/16 05:55 Random Glucose 191 MG/DL (74-106) 108 MG/DL (74-106) Calcium Level 8.4 MG/DL (8.5-10.1) Sodium Level 133 MEQ/L (136-145) 135 MEQ/L (136-145) B-Type Natriuretic Peptide 1526 PG/ML (0-100) Red Blood Count 3.00 MIL/MM3 (4.00-5.30) Hemoglobin 9.1 GM/DL (11.6-15.3) Hematocrit 27.3 % (35.0-46.0) Red Cell Distribution Width 17.7 % (11.6-17.2) Platelet Count 118 TH/MM3 (150-450) Neutrophils (%) (Auto) 82.1 % (16.0-70.0) Lymphocytes (%) (Auto) 7.9 % (9.0-44.0) Monocytes (%) (Auto) 9.5 % (0.0-8.0) Lymphocytes # (Auto) 0.6 TH/MM3 (1.0-4.8) Imaging Last Impressions Chest X-Ray 10/30/16 0000 Signed Impressions: Service Date/Time: Sunday, October 30, 2016 16:03 - CONCLUSION: 1. Cardiomegaly and findings of congestive heart failure. 2. Left lower lobe atelectasis versus pneumonia. Austyn Gates MD PE at Discharge GENERAL: AOX3, NAD. SKIN: Warm and dry. HEAD: Normocephalic. EYES: No scleral icterus. No injection or drainage. NECK: Supple, trachea midline. No JVD or lymphadenopathy. CARDIOVASCULAR: Regular rate and rhythm without murmurs, gallops, or rubs. RESPIRATORY: Breath sounds equal bilaterally. No accessory muscle use. GASTROINTESTINAL: Abdomen soft, non-tender, nondistended. MUSCULOSKELETAL: No cyanosis, or edema. BACK: Nontender without obvious deformity. No CVA tenderness. Pt update on day of discharge Follow-up for congestive heart failure, pneumonia/atelectasis. Patient is currently doing well. Remains on room air. No fever or chills. Walk test reveals no need for home oxygen. Hospital Course Ms. Andrade is a pleasant 71 year old female with a history of lung cancer who was admitted to the hospital on 10/30/2016 due to shortness of breath, fatigue. She was undergoing IV chemotherapy at the Oncology center when she started experiencing shortness of breath. Anemia was suspected. However, on admission, her hemoglobin was 8.7, 9.1. CXR showed evidence of CHF. Later on BNP was found to be elevated 1526. - Acute exacerbation of congestive heart failure - likely diastolic. - CAD - remote history of CABG. - No recent Echo. Patient follows up with Dr. Perdomo. - Patient was not on any diuretics. - Will switch IV lasix from 40mg IV BID to Torsemide 10mg BID. - Torsemide dosage can be adjusted. - Since patient is clinically much improved, Echo study can be done at her transport coordinator's office. - Continue Metoprolol 50mg BID. - Pneumonia - CXR reviewed. Showed possible pneumonia. - Levaquin 500mg Qday x 7 days. - DuoNeb PRN. - Incentive spirometry - Diabetes mellitus - Currently on Sliding scale insulin. - We will continue metformin 1000mg BID on discharge. - Glimepiride is currently on hold. 6mg Qday is probably too much. - Goal BS in the hospital 140-180. - Hypothyroidism - continue Levothyroxine 112 mcg Qday. - GERD - continue PPI. Full code. SCDs. Pt Condition on Discharge: Good Discharge Disposition: Discharge Home Discharge Time: > 30 minutes Discharge Instructions DIET: Follow Instructions for: As Tolerated, No Restrictions Activities you can perform: Regular-No Restrictions Follow up Referrals: Cardiology with Tanna Perdomo MD PCP Follow-up - 1 Week New Medications: Levofloxacin (Levaquin) 500 Mg Tablet 500 MG PO DAILY for Infection, #6 TAB Torsemide (Torsemide) 5 Mg Tab 10 MG PO BID@18 for heart, #60 TAB Continued Medications: Albuterol 6.7 GM Inh (Proventil Hfa 6.7 GM Inh) 90 Mcg/Act Aer 1 PUFF INH Q4H PRN for SHORTNESS OF BREATH, #1 INHALER 0 Refills Fish Oil-Cholecalciferol (Fish Oil + D3) 1,200-1,000 Mg-Unit Cap 1 CAP PO DAILY for Nutritional Supplement, #30 CAP 0 Refills Fluticasone-Salmeterol Inh (Advair Diskus Inh) 100-50 Mcg/Blist Aer 1 PUFF INH BID for Asthma Management, #1 INHALER 0 Refills Rinse mouth after use. Glimepiride (Glimepiride) 2 Mg Tab 6 MG PO DAILY for Blood Sugar Management, #30 TAB 0 Refills Take with breakfast or first main meal Levothyroxine (Levothyroxine) 112 Mcg Tab 112 MCG PO DAILY for Thyroid, #30 TAB 0 Refills Metformin (Metformin) 1,000 Mg Tab 1000 MG PO BIDPC for Blood Sugar Management, #60 TAB 0 Refills With meals Metoprolol Tartrate (Metoprolol Tartrate) 50 Mg Tab 50 MG PO BID, #60 TAB 0 Refills Omeprazole (Omeprazole) 40 Mg Cap 40 MG PO DAILY, #30 CAP 0 Refills Ellie Martinez DO Nov 01, 2016 14:40
[2016-11-01] MEDS ORDERED: SODIUM CHLORIDE 0.9% FLUSH 10 ML FLUSH IV FLUSH PRN (16:00)
--- NOTE | 2016-11-02 13:01 | PQ ---
Physician Query Response Document PATIENT: LENA SANCHEZ : 1945 ADMIT DATE: 10/30/2016 4:51 PM DISCH DATE: 11/01/2016 5:09 PM RESPONDING PROVIDER #: jon QUERY TEXT: CHF Acuity and Type Congestive Heart Failure is documented in the Medical Record - WITH CONFLICTING INFORMATION RE: CHF T YPE / ACUITY Please document the type and acuity (includes probable or suspected) Such as: Type: -- Systolic -- Diastolic -- Combined -- Other, please specify Acuity: -- Acute -- Chronic -- Acute on chronic -- Other, please specify Also please document the underlying cause of the CHF (includes probable or suspected) The patient's Clinical Indicators include: 10/30/16 Admission Diagnosis Acute Congestive Heart Failure PER ED DOCUMENTATION: Primary Impression: Acute exacerbation of CHF (congestive heart failure) Qualified Codes: I50.23 - Acute on chronic systolic (congestive) heart failure PER H - BNP 1526 - CXR with cardiomegaly and findings of CHF and left lower lobe atelectasis vs pneumonia - Lasix 40 mg IV BID PER 11/01/16 PROGRESS NOTE ASSESSMENT AND PLAN: - Acute exacerbation of congestive heart failure - lik nick diastolic. Query created by: Bridgette Goncalves on 11/01/2016 12:56 PM RESPONSE TEXT: Acute exacerbation of CHF - likely diastolic Chronic congestive heart failure, likely diastolic. Electronically signed by: Duglas Martinez DO 11/02/2016 12:57 PM
== END 2016-11-01 17:09 | disposition home or self-care (01) | DRG 291 ==
LOC: NEPD 15:08 → NEDA 16:51 → HOCA 18:55
PROVIDERS: ADMIT Hospitalist; ATTEND Hospitalist
DX: I50.33 Acute on chronic diastolic (congestive) heart failure (principal); J18.1 Lobar pneumonia, unspecified organism; D69.59 Other secondary thrombocytopenia; J44.0 Chronic obstructive pulmonary disease with (acute) lower respiratory infection; G35 Multiple sclerosis; Z95.1 Presence of aortocoronary bypass graft; D64.81 Anemia due to antineoplastic chemotherapy; Z85.118 Personal history of other malignant neoplasm of bronchus and lung; E03.9 Hypothyroidism, unspecified; E11.9 Type 2 diabetes mellitus without complications; E78.00 Pure hypercholesterolemia, unspecified; I25.10 Atherosclerotic heart disease of native coronary artery without angina pectoris; I25.2 Old myocardial infarction; K21.9 Gastro-esophageal reflux disease without esophagitis; T45.1X5A Adverse effect of antineoplastic and immunosuppressive drugs, initial encounter; Z79.84 Long term (current) use of oral hypoglycemic drugs; Z86.73 Personal history of transient ischemic attack (TIA), and cerebral infarction without residual deficits; Z87.891 Personal history of nicotine dependence
CPT/HCPCS: 36591; 71010; 80048; 82948; 83880; 85025; 86850; 86900; 86901; 86920; 93005; 94150; 94620; 94664; 96367; 96374; 96375; 96413; 96417; J1100; J1626; J1642; J1815; J1940; J7050; J9045; J9201

== ENCOUNTER 2016-12-16 18:14 | Inpatient (IN) | payer OTHER, MEDICARE ==
[2016-12-16] VITALS (9 sets, daily range): BP systolic 117–159; BP diastolic 63–81; PULSE 72–77; RESP 17–24; TEMP 98.1–98.9; O2SAT 97–100
[~2016-12-16] VITALS: Ht 157.5 cm; Wt 70.9 kg
[~2016-12-16 18:14] MED LIST changes: -CLON0.1T PO; +LEVA500T20 PO; +METF1000 PO; +TORS5TAB2 PO
[2016-12-16] MEDS ORDERED: ETOMIDATE 20 MG/10 ML VIAL ONE (18:25)
[2016-12-16] MEDS ORDERED: SUCCINYLCHOLINE CHLORIDE 200 MG/10 ML VIAL ONE (18:25)
[2016-12-16] MEDS: RESP: ALBUTEROL 2.5 MG/IPRATROPIUM 0.5 MG NEB (SCH) INH ×3 (19:01→22:57)
--- NOTE | 2016-12-16 19:13 | PD ---
HPI Chief Complaint: Respiratory Distress Time Seen by Provider: 18:29 Travel History International Travel<30 days: No Contact w/Intl Traveler<30days: No Traveled to known affect area: No History of Present Illness HPI 71-year-old female that presents to the ED for evaluation of chest pain and shortness of breath. Per patient she's had this on and off since been on a trip to [place]. Per patient she was on a bus for this. Per patient shortness of breath has progressively gotten worse. She has a history of lung cancer, ACS, quadruple bypass as well as diabetes and high blood pressure and high cholesterol. She receives chemotherapy every 3 weeks. She last had it 3 weeks ago. Per patient she doesn't use oxygen at home. Patient was found to be profoundly hypoxic in the 80s and was put on oxygen with results. Patient was given breathing treatments with some results. Per patient the shortness of breath more severe today which is what prompted her evaluation. She came home today from the trip. She states that the pain feels like a pressure. She does have a history of CHF as well. She denies any significant swelling. She denies any headache. Does not take any blood thinners. Has multiple allergies to medications. PFSH Past Medical History Arthritis: Yes Asthma: Yes Autoimmune Disease: Yes (SEE ABOVE) Blood Disorders: No Heart Rhythm Problems: Yes Cancer: Yes (lung cancer) Cardiac Catheterization: Yes Cardiovascular Problems: Yes (cabg) High Cholesterol: Yes Chemotherapy: Yes (today) Chest Pain: Yes Congestive Heart Failure: No Cirrhosis: Yes COPD: Yes Cerebrovascular Accident: Yes Coronary Artery Disease: Yes Diabetes: Yes (TYPE 2) Patient Takes Glucophage: Yes Diminished Hearing: Yes (BOTH PARTIAL) Endocrine: Yes Gastrointestinal Disorders: Yes GERD: Yes Glaucoma: No Genitourinary: No Headaches: Yes Hepatitis: No Hiatal Hernia: No Heparin Induced Thrombocytopen: No Hypertension: Yes Immune Disorder: Yes (MULTIPLE SCLEROSIS) Medical other: No Musculoskeletal: Yes Neurologic: Yes (MS) Psychiatric: No Reproductive: No Respiratory: Yes (copd) Integumentary: Yes (PSORIASIS) Immunizations Current: Yes Migraines: No Myocardial Infarction: Yes (2006) Renal Failure: No Seizures: No Sickle Cell Disease: No Sleep Apnea: Yes Thyroid Disease: Yes Ulcer: No ?: Not Menopausal: Yes Past Surgical History Abdominal Surgery: Yes (EXP LAP) AICD: No Appendectomy: No Arteriovenous Shunt: No Cardiac Surgery: Yes (CABG ) Cholecystectomy: No Coronary Artery Bypass Graft: Yes (X4 1999) Ear Surgery: No Endocrine Surgery: No Eye Surgery: Yes (bilateral cataract sx) Genitourinary Surgery: No Gynecologic Surgery: Yes (HYSTERECTOMY) Hysterectomy: Yes Insulin Pump: No Joint Replacement: No Neurologic Surgery: No Oral Surgery: Yes (TEETH REMOVED) Pacemaker: No Thoracic Surgery: Yes (CABG, left thoracoty andry lobectomy) Other Surgery: Yes Social History Alcohol Use: No (NONE SINCE 1979) Tobacco Use: No (APPROX 1 PPD X 50 YRS, RECENTLY DOWN TO 10 CIAGARETTES / DAY) Substance Use: No Allergies-Medications (Allergen,Severity, Reaction): Coded Allergies: Sulfa (Sulfonamide Antibiotics) (Unverified Allergy, Severe, Swelling, ) aspirin (Unverified Allergy, Severe, Swelling, 10/09/16) atorvastatin (Unverified Allergy, Severe, VOMITING, 10/09/16) clarithromycin (Unverified Allergy, Severe, Swelling, 10/09/16) penicillin G (Unverified Allergy, Severe, Swelling, 10/09/16) Reported Meds & Prescriptions Reported Meds & Active Scripts Active Torsemide 5 Mg Tab 10 Mg PO BID@ Reported Metformin (Metformin HCl) 1,000 Mg Tab 1,000 Mg PO BIDPC With meals Fish Oil + D3 (Fish Oil-Cholecalciferol) 1,200-1,000 Mg-Unit Cap 1 Cap PO DAILY Omeprazole 40 Mg Cap 40 Mg PO DAILY Metoprolol Tartrate 50 Mg Tab 50 Mg PO BID Levothyroxine (Levothyroxine Sodium) 112 Mcg Tab 112 Mcg PO DAILY Glimepiride 2 Mg Tab 6 Mg PO DAILY Take with breakfast or first main meal Proventil Hfa 6.7 GM Inh (Albuterol Sulfate) 90 Mcg/Act Aer 1 Puff INH Q4H PRN Advair Diskus Inh (Fluticasone-Salmeterol Inh) 100-50 Mcg/Blist Aer 1 Puff INH BID Rinse mouth after use. Review of Systems Except as stated in HPI: all other systems reviewed are Neg Physical Exam Narrative GENERAL: SKIN: Warm and dry. Patient has an area of erythema and blister like lesion on the left great toe. On the medial aspect. Patient has mild bruising noted on the abdomen below the belly button. HEAD: Atraumatic. Normocephalic. EYES: Pupils equal and round. No scleral icterus. No injection or drainage. ENT: No nasal bleeding or discharge. Mucous membranes pink and moist. Tongue is midline. No uvula deviation. NECK: Trachea midline. No JVD. CARDIOVASCULAR: Regular rate and rhythm. No murmurs, S3, S4. RESPIRATORY: No accessory muscle use. Clear to auscultation. Breath sounds equal bilaterally. GASTROINTESTINAL: Abdomen soft, non-tender, nondistended. Hepatic and splenic margins not palpable. MUSCULOSKELETAL: Extremities without clubbing, cyanosis, or edema. No obvious deformities. Full range of motion of the upper and lower extremities bilaterally. 2+ pulses bilaterally. NEUROLOGICAL: Awake and alert. No obvious cranial nerve deficits. Motor grossly within normal limits. Five out of 5 muscle strength in the arms and legs. Normal speech. PSYCHIATRIC: Appropriate mood and affect; insight and judgment normal. Data Data Last Documented VS Vital Signs Date Time Temp Pulse Resp B/P (MAP) Pulse Ox O2 Delivery O2 Flow Rate FiO2 12/16/16 19:07 95 Nasal Cannula 2.00 12/16/16 19:03 12/16/16 19:00 74 18 12/16/16 18:25 98.9 Orders Orders Etomidate Inj (Amidate Inj) (12/16/16 18:25) Succinylcholine Inj (Quelicin Inj) (12/16/16 18:25) Electrocardiogram (12/16/16 18:29) Complete Blood Count With Diff (12/16/16 18:29) Comprehensive Metabolic Panel (12/16/16 18:29) Ckmb (Isoenzyme) Profile (12/16/16 18:29) Troponin I (12/16/16 18:29) B-Type Natriuretic Peptide (12/16/16 18:29) Prothrombin Time / Inr (Pt) (12/16/16 18:29) Act Partial Throm Time (Ptt) (12/16/16 18:29) Blood Culture (12/16/16 18:29) Lipase (12/16/16 18:29) Urinalysis - C+S If Indicated (12/16/16 18:29) Thyroid Stimulating Hormone (12/16/16 18:29) Chest, Single Ap (12/16/16 18:29) Iv Access Insert/Monitor (12/16/16 18:29) Ecg Monitoring (12/16/16 18:29) Oxygen Administration (12/16/16 18:29) Oximetry (12/16/16 18:29) Albuterol-Ipratropium Neb (Duoneb Neb) (12/16/16 18:45) Furosemide Inj (Lasix Inj) (12/16/16 20:00) Ventilation & Perfusion Scan (12/16/16 ) CKMB (12/16/16 18:40) CKMB% (12/16/16 18:40) Type And Screen (12/16/16 20:00) Red Blood Cells (Rbc) (12/16/16 20:00) Blood Product Administration (12/16/16 20:00) Sodium Chlor 0.9% 250 Ml Inj (Ns 250 Ml (12/16/16 20:00) Admit Order (Ed Use Only) (12/16/16 20:31) Labs Laboratory Tests Test 12/16/16 18:40 White Blood Count 7.8 TH/MM3 Red Blood Count 1.87 MIL/MM3 Hemoglobin 6.1 GM/DL Hematocrit 18.0 % Mean Corpuscular Volume 96.1 FL Mean Corpuscular Hemoglobin 32.4 PG Mean Corpuscular Hemoglobin Concent 33.8 % Red Cell Distribution Width 19.8 % Platelet Count 41 TH/MM3 Mean Platelet Volume 10.0 FL CBC Comment AUTO DIFF Differential Total Cells Counted 100 Neutrophils % (Manual) 61 % Band Neutrophils % 5 % Lymphocytes % 5 % Monocytes % 8 % Neutrophils # (Manual) 6.8 TH/MM3 Metamyelocytes 6 % Myelocytes 15 % Nucleated Red Blood Cells 8 /100 WBC Differential Comment FINAL DIFF MANUAL Platelet Estimate LOW Platelet Morphology Comment NORMAL Ovalocytes 1+ Prothrombin Time 24.9 SEC Prothromb Time International Ratio 2.2 RATIO Activated Partial Thromboplast Time 27.4 SEC Blood Urea Nitrogen 49 MG/DL Creatinine 1.19 MG/DL Random Glucose 207 MG/DL Total Protein 7.3 GM/DL Albumin 2.9 GM/DL Calcium Level 9.0 MG/DL Alkaline Phosphatase 273 U/L Aspartate Amino Transf (AST/SGOT) 4819 U/L Alanine Aminotransferase (ALT/SGPT) 3329 U/L Total Bilirubin 1.4 MG/DL Sodium Level 132 MEQ/L Potassium Level 5.8 MEQ/L Chloride Level 99 MEQ/L Carbon Dioxide Level 14.7 MEQ/L Anion Gap 18 MEQ/L Estimat Glomerular Filtration Rate 45 ML/MIN Total Creatine Kinase 177 U/L Creatine Kinase MB 3.9 NG/ML Troponin I 0.29 NG/ML B-Type Natriuretic Peptide 3373 PG/ML Lipase 130 U/L Thyroid Stimulating Hormone 3rd Gen 5.950 uIU/ML MDM Medical Decision Making Medical Screen Exam Complete: Yes Emergency Medical Condition: Yes Medical Record Reviewed: Yes Interpretation(s) CBC & BMP Diagram 12/16/16 18:40 Total Protein 7.3, Albumin 2.9 L, Calcium Level 9.0, Alkaline Phosphatase 273 H , Aspartate Amino Transf (AST/SGOT) 4819 H, Alanine Aminotransferase (ALT/SGPT) 3329 H, Total Bilirubin 1.4 H Last Impressions Chest X-Ray 12/16/169 Signed Impressions: Service Date/Time: Friday, December 16, 2016 18:58 - CONCLUSION: 1. Previous partial left lung resection with elevated left hemidiaphragm. Mild basilar airspace disease similar to October 30. [id number] in superior vena cava. Postop CABG. Hans Manzanares MD INR elevated of 2.2 Coags also elevated troponin elevated at 0.29 CK elevated as well EKG shows sinus rhythm with no sign of acute ischemia read negative by me and attending. Differential Diagnosis Lung cancer versus pneumonia versus COPD versus PE versus hypoxia versus bronchitis versus respiratory distress Narrative Course 71-year-old female that presents to the ED for evaluation of shortness of breath. Patient was properly examined and was found to have signs and symptoms consistent with shortness of breath. Unclear etiology at this time. She does have risk factors for different disease. Concerning for PE noted. She is somewhat tachycardic and hypoxic with oxygen. Labs and imaging were ordered. Patient was given breathing treatments here put on oxygen. She was already given Solu Medrol by ambulance. Labs and imaging came back and showed what appeared to be symptomatically anemia, acute liver failure, hyperkalemia, acute on chronic kidney injury, severe CHF with an elevated BNP as well as positive troponin. Case was immediately discussed with my attending Dr. Soliz who was made aware of all findings. I did perform a rectal examination which did not show any blood. Hemoccult was negative. Blood was ordered. Patient appears to also have an INR of 2.2 and she takes no blood thinners. Likely secondary from the acute liver failure. At this time I do not believe this is PE because of this as patient is already anticoagulated. We will hold off on the CT pulmonary angiogram and I changed it to a VQ scan as patient does have acute kidney injury and I do not want to injure her kidneys any more at this time. This was discussed with the patient who is in agreement with plan for admission. Case was discussed with Dr. Correa who agrees to admission. I placed a consult to Dr. Campbell who is the patient's oncologist. [facility] Point of Care Internal Pos. & Neg. Controls: Passed Fecal Specimen Occult Blood: Negative Diagnosis Primary Impression: Symptomatic anemia Additional Impressions: Hypoxia Liver failure, acute Qualified Codes: K72.00 - Acute and subacute hepatic failure without coma Coagulopathy Elevated troponin Hyperkalemia Admitting Information Admitting Physician Requests: Admit Mamadou Bruce Dec 16, 2016 19:13
--- NOTE | 2016-12-16 19:25 | RADRPT ---
EXAM DATE/TIME: 12/16/2016 18:58 [facility] COMPARISON: CHEST SINGLE AP, October 30, 2016, 16:03. INDICATIONS : Chest Pain MEDICAL HISTORY : Carcinoma, lung. Chronic obstructive pulmonary disease. Diabetes mellitus type II. Myocardial infarct ion. SURGICAL HISTORY : Hysterectomy. CABG. ENCOUNTER: Initial ACUITY: 1 day PAIN SCORE: 3/10 LOCATION: Bilateral chest FINDINGS: Right [id number] in superior vena cava. Cardiomegaly. Median sternotomy with CABG. Elevated left h emidiaphragm. No pneumothorax. Basilar airspace disease. CONCLUSION: 1. Previous partial left lung resection with elevated left hemidiaphragm. Mild basilar airspace disea se similar to October 30. [id number] in superior vena cava. Postop CABG. Hans Manzanares MD on December 16, 2016 at 19:21 Board Certified Radiologist. This report was verified electronically.
[2016-12-16 19:28] LABS: APTT (PATIENT) 27.4 SEC (24.3-30.1); INTERNATIONAL NORMALIZED RATIO 2.2 RATIO; PROTHROMBIN TIME - PATIENT 24.9 SEC (9.8-11.6)
[2016-12-16 19:34] LABS: ANION GAP 18 MEQ/L (5-15); BICARBONATE 14.7 MEQ/L (21.0-32.0); BLOOD UREA NITROGEN 49 MG/DL (7-18); CHLORIDE 99 MEQ/L (98-107); GLOMERULAR FILTRATION RATE 45 ML/MIN (>89); MEAN CELL VOLUME 96.1 FL (80.0-100.0); MEAN CORPUSCULAR HEMOGLOBIN 32.4 PG (27.0-34.0); MEAN CORPUSCULAR HGB CONC 33.8 % (32.0-36.0); PLATELET COUNT 41 TH/MM3 (150-450); POTASSIUM 5.8 MEQ/L (3.5-5.1); RED BLOOD COUNT 1.87 MIL/MM3 (4.00-5.30); RED CELL DISTRIBUTION WIDTH 19.8 % (11.6-17.2); SODIUM (NA) 132 MEQ/L (136-145); WHITE BLOOD COUNT 7.8 TH/MM3 (4.0-11.0)
[2016-12-16 19:55] LABS: ALKALINE PHOSPHATASE 273 U/L (45-117); ALT (GPT) 3329 U/L (10-53); AST (GOT) 4819 U/L (15-37); CREATINE KINASE 177 U/L (26-192); TOTAL BILIRUBIN ADULT 1.4 MG/DL (0.2-1.0)
[2016-12-16 20:00] LABS: HEMO FLAGS AUTO DIFF
[2016-12-16] MEDS ORDERED: FUROSEMIDE 40 MG/4 ML VIAL IV PUSH ONE (20:00)
[2016-12-16] MEDS ORDERED: SODIUM CHLOR 0.9% 250 ML INJ 250 ML IV ONE (20:00)
[2016-12-16 20:08] LABS: CKMB 3.9 NG/ML (0.5-3.6)
[2016-12-16 20:09] LABS: BANDS 5 % (0-6); CORRECTED NUCLEATED RBC 8 /100 WBC (0-0); METAMYELOCYTES 6 % (0-1); MYELOCYTES 15 % (0-0); NEUTROPHIL # MANUAL DIFF 6.8 TH/MM3 (1.8-7.7); POLYS (SEG NEUTROPHILS) 61 % (16-70); WBC DIFF SAMPLE 100
[2016-12-16 20:11] LABS: OVALOCYTES 1+ (NORMAL); PLATELET ESTIMATE SMEAR LOW (NORMAL); PLATELET MORPHOLOGY NORMAL (NORMAL)
[2016-12-16 20:12] LABS: SCAN/DIFF FINAL DIFF MANUAL
--- NOTE | 2016-12-16 20:15 | PD ---
Data Data Last Documented VS Vital Signs Date Time Temp Pulse Resp B/P (MAP) Pulse Ox O2 Delivery O2 Flow Rate FiO2 12/16/16 19:07 95 Nasal Cannula 2.00 12/16/16 19:03 12/16/16 19:00 74 18 12/16/16 18:25 98.9 Orders Orders Etomidate Inj (Amidate Inj) (12/16/16 18:25) Succinylcholine Inj (Quelicin Inj) (12/16/16 18:) Electrocardiogram (12/16/16:) Complete Blood Count With Diff (12/16/16) Comprehensive Metabolic Panel (12/16/16) Ckmb (Isoenzyme) Profile (12/16/16) Troponin I (12/16/16) B-Type Natriuretic Peptide (12/16/16) Prothrombin Time / Inr (Pt) (12/16/16:) Act Partial Throm Time (Ptt) (12/16/16:) Blood Culture (12/16/16) Lipase (12/16/16:) Urinalysis - C+S If Indicated (12/16/16 18:29) Thyroid Stimulating Hormone (12/16/16:) Chest, Single Ap (12/16/16:) Iv Access Insert/Monitor (12/16/16 18:29) Ecg Monitoring (12/16/16 18:29) Oxygen Administration (12/16/16 18:29) Oximetry (12/16/16:29) Albuterol-Ipratropium Neb (Duoneb Neb) (12/16/16 18:45) Furosemide Inj (Lasix Inj) (12/16/16 20:00) CKMB (12/16/16 18:40) CKMB% (12/16/16 18:40) Type And Screen (12/16/16 20:00) Red Blood Cells (Rbc) (12/16/16 20:00) Blood Product Administration (12/16/16 20:00) Sodium Chlor 0.9% 250 Ml Inj (Ns 250 Ml (12/16/16 20:00) Admit Order (Ed Use Only) (12/16/16 20:31) Lung Scan - Perfusion (12/16/16 ) Labs Laboratory Tests Test 12/16/16 18:40 White Blood Count 7.8 TH/MM3 Red Blood Count 1.87 MIL/MM3 Hemoglobin 6.1 GM/DL Hematocrit 18.0 % Mean Corpuscular Volume 96.1 FL Mean Corpuscular Hemoglobin 32.4 PG Mean Corpuscular Hemoglobin Concent 33.8 % Red Cell Distribution Width 19.8 % Platelet Count 41 TH/MM3 Mean Platelet Volume 10.0 FL CBC Comment AUTO DIFF Differential Total Cells Counted 100 Neutrophils % (Manual) 61 % Band Neutrophils % 5 % Lymphocytes % 5 % Monocytes % 8 % Neutrophils # (Manual) 6.8 TH/MM3 Metamyelocytes 6 % Myelocytes 15 % Nucleated Red Blood Cells 8 /100 WBC Differential Comment FINAL DIFF MANUAL Platelet Estimate LOW Platelet Morphology Comment NORMAL Ovalocytes 1+ Prothrombin Time 24.9 SEC Prothromb Time International Ratio 2.2 RATIO Activated Partial Thromboplast Time 27.4 SEC Blood Urea Nitrogen 49 MG/DL Creatinine 1.19 MG/DL Random Glucose 207 MG/DL Total Protein 7.3 GM/DL Albumin 2.9 GM/DL Calcium Level 9.0 MG/DL Alkaline Phosphatase 273 U/L Aspartate Amino Transf (AST/SGOT) 4819 U/L Alanine Aminotransferase (ALT/SGPT) 3329 U/L Total Bilirubin 1.4 MG/DL Sodium Level 132 MEQ/L Potassium Level 5.8 MEQ/L Chloride Level 99 MEQ/L Carbon Dioxide Level 14.7 MEQ/L Anion Gap 18 MEQ/L Estimat Glomerular Filtration Rate 45 ML/MIN Total Creatine Kinase 177 U/L Creatine Kinase MB 3.9 NG/ML Troponin I 0.29 NG/ML B-Type Natriuretic Peptide 3373 PG/ML Lipase 130 U/L Thyroid Stimulating Hormone 3rd Gen 5.950 uIU/ML [facility] Medical Record Reviewed: Yes Supervised Visit with ARSLAN: Yes Interpretation(s) Last Impressions Chest X-Ray 12/16/16 1829 Signed Impressions: Service Date/Time: Friday, December 16, 2016 18:58 - CONCLUSION: 1. Previous partial left lung resection with elevated left hemidiaphragm. Mild basilar airspace disease similar to October 30. [id number] in superior vena cava. Postop CABG. Hans Manzanares MD Lung Scan Nuclear Medicine 12/16/16 0000 Signed Impressions: Service Date/Time: Friday, December 16, 2016 21:20 - CONCLUSION: 1. Low probability for pulmonary embolus. Hans Manzanares MD Narrative Course I, Dr. Soliz, have reviewed the advance practice practitioner's documentation and am in agreement, met with the patient face to face, made the diagnosis, and the medical decision making was done by me. *My assessment and Findings: The patient is a 71-year-old female who presents to [facility] emergency Department with a history of lung cancer currently under treatment. The patient presented with chest pain and shortness of breath. The patient was initially seen by Monico, the physician surgical dental assistant. A workup was started and the patient was noted to have worsening chronic anemia with a hemoglobin that went from 8 down to 6 which certainly could be contributing to the patient's chest pain and shortness of breath. The patient also has an increased BNP compared to previously with a history of CHF. Her last BNP was in the mid 1000, today it is 3373. The patient was typed and crossmatched for 2 units of packed red blood cells to be administered. The patient will be diuresed as needed in between these units. The patient is also noted to be in acute liver failure. The patient's INR is 2 and her AST and ALT are in the thousands. The patient's troponin is 0.29 with a normal CPK. This could be related to demand ischemia from the patient's anemia. The patient will be admitted for rule out serial cardiac enzymes in addition to transfusion for her chest pain and shortness of breath. The patients results were discussed with the patient, including the plan of care. I explained that further testing and/ or monitoring is indicated based on the patients history, examination, and/ or laboratory findings. Therefore, I recommended admission for additional evaluation. The patient expressed understanding and was agreeable with this plan. The patient was admitted to the hospital in guarded condition and sent to a bed under the care of the body technician/painter service. Diagnosis Primary Impression: Anemia due to chemotherapy Additional Impressions: Elevated troponin Symptomatic anemia Liver failure, acute Qualified Codes: K72.00 - Acute and subacute hepatic failure without coma Admitting Information Admitting Physician Requests: Admit Yris Soliz MD Dec 16, 2016 20:15
--- NOTE | 2016-12-16 20:55 | HHI.HP ---
HPI Service Critical Care Medicine Primary Care Physician Unknown Admission Diagnosis symptomatic anemia, acute liver failure, kidney injury, hyperkalemia Diagnosis: Travel History International Travel<30 Days: No Contact w/Intl Traveler <30 Da: No Traveled to Known Affected Are: No History of Present Illness 71-year-old female that presents for evaluation of chest pain and shortness of breath. Per patient she's had this on and off since been on a bus trip to [place]. Her shortness of breath has progressively gotten worse. She has a history of lung cancer, ACS, quadruple bypass as well as diabetes and high blood pressure and high cholesterol. She receives chemotherapy every 3 weeks. She last had it 3 weeks ago. She doesn't use oxygen at home. Patient was found to be profoundly hypoxic in the 80s and was put on oxygen with breathing treatments with some improvement. She states that the pain feels like a pressure. She does have a history of CHF as well. She denies any significant swelling. She denies any headache. Does not take any blood thinners. 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 CABG Coronary Angiogram Left thoracotomy with left upper lobectomy Reported Medications Reported Meds & Active Scripts Active Torsemide 5 Mg Tab 10 Mg PO BID@ Reported Metformin (Metformin HCl) 1,000 Mg Tab 1,000 Mg PO BIDPC With meals Fish Oil + D3 (Fish Oil-Cholecalciferol) 1,200-1,000 Mg-Unit Cap 1 Cap PO DAILY Omeprazole 40 Mg Cap 40 Mg PO DAILY Metoprolol Tartrate 50 Mg Tab 50 Mg PO BID Levothyroxine (Levothyroxine Sodium) 112 Mcg Tab 112 Mcg PO DAILY Glimepiride 2 Mg Tab 6 Mg PO DAILY Take with breakfast or first main meal Proventil Hfa 6.7 GM Inh (Albuterol Sulfate) 90 Mcg/Act Aer 1 Puff INH Q4H PRN Advair Diskus Inh (Fluticasone-Salmeterol Inh) 100-50 Mcg/Blist Aer 1 Puff INH BID Rinse mouth after use. Active Ordered Medications Current Medications Medications (Trade) Dose Ordered Sig/Hiral Route PRN Reason Start Time Stop Time Status Last Admin Dose Admin Sodium Chloride 250 ml @ 15 mls/hr ONCE ONCE IV 12/16/16 20:00 12/17/16 12:39 Albuterol Sulfate (Proair Hfa Inh) 1 puff Q4H PRN INH SHORTNESS OF BREATH 12/16/16 21:00 Glimepiride (Amaryl) 6 mg DAILY PO 12/17/16 09:00 Levothyroxine Sodium (Synthroid) 112 mcg DAILY@0600 PO 12/17/16 06:00 Metoprolol Tartrate (Lopressor) 50 mg BID PO 12/16/16 21:00 12/16/16 21:35 Torsemide (Demadex) 10 mg BID@,18 PO 12/17/16 09:00 Budesonide/ Formoterol Fumarate (Symbicort 80-4.5 Mcg Inh) 2 puff BID INH 12/16/16 21:15 Sodium Chloride 1,000 ml @ 84 mls/hr [id number] IV 12/16/16 21:00 12/16/16 21:35 Sodium Chloride (NS Flush) 2 ml UNSCH PRN IV FLUSH FLUSH AFTER USING IV ACCESS 12/16/16 21:00 Sodium Chloride (NS Flush) 2 ml BID IV FLUSH 12/16/16 21:00 Acetaminophen (Tylenol) 650 mg Q6H PRN PO PAIN 1-5 AND/OR FEVER >101F 12/16/16 21:00 Morphine Sulfate (Morphine Inj) 2 mg Q2H PRN IV PUSH PAIN SCALE 6 TO 10 12/16/16 21:00 Pantoprazole Sodium (Protonix Inj) 40 mg BID IV PUSH 12/16/16 21:00 12/16/16 21:35 Ondansetron HCl (Zofran Inj) 4 mg Q6H PRN IV PUSH NAUSEA OR VOMITING 12/16/16 21:00 Zolpidem Tartrate (Ambien) 5 mg HS PRN PO INSOMNIA 12/16/16 21:00 Albuterol/ Ipratropium (Duoneb Neb) 1 ampule Q6HR NEB INH 12/16/16 22:00 12/16/16 22:57 Albuterol/ Ipratropium (Duoneb Neb) 1 ampule Q2HR NEB PRN INH WHEEZING 12/16/16 21:00 Miscellaneous Information 1 [id number] XX 12/16/16 21:00 Chlorhexidine Gluconate (Chlorhexidine 2% Cloth) 3 pack Taper DAILY@04 TOP 12/17/16 04:00 12/13/17 03:59 Chlorhexidine Gluconate (Chlorhexidine 2% Cloth) 3 pack UNSCH PRN TOP HYGIENIC CARE 12/16/16 21:00 Senna/Docusate Sodium (Antoinette-Colace) 1 tab BID PO 12/16/16 21:00 Magnesium Hydroxide (Milk Of Magnesia Liq) 30 ml Q12H PRN PO Mild constipation 12/16/16 21:00 Sennosides (Senokot) 17.2 mg Q12H PRN PO Moderate constipation 12/16/16 21:00 Bisacodyl (Dulcolax Supp) 10 mg DAILY PRN RECTAL SEVERE CONSITIPATION 12/16/16 21:00 Lactulose (Lactulose Liq) 30 ml DAILY PRN PO SEVERE CONSITIPATION 12/16/16 21:00 Family History No family history significant for coronary artery disease or malignancy Social History Tobacco: quit smoking 5 months ago Alcohol: denies Illicit Drugs: denies Physical Exam Vital Signs Vital Signs Date Time Temp Pulse Resp B/P (MAP) Pulse Ox O2 Delivery O2 Flow Rate FiO2 12/16/16 19:07 95 Nasal Cannula 2.00 12/16/16 19:05 98 Nasal Cannula 2.00 12/16/16 19:03 97 Nasal Cannula 2.00 12/16/16 19:00 74 18 117/63 (81) 98 Nasal Cannula 2.00 12/16/16 19:00 18 98 Nasal Cannula 2.00 12/16/16 18:25 98.9 77 20 151/68 (95) 99 Physical Exam GENERAL: Well-nourished, well-developed patient. SKIN: Warm and dry. HEAD: Normocephalic. EYES: No scleral icterus. No injection or drainage. NECK: Supple, trachea midline. No JVD or lymphadenopathy. CARDIOVASCULAR: Regular rate and rhythm without murmurs, gallops, or rubs. RESPIRATORY: Breath sounds equal bilaterally. No accessory muscle use. GASTROINTESTINAL: Abdomen soft, non-tender, nondistended. MUSCULOSKELETAL: No cyanosis, or edema. BACK: Nontender without obvious deformity. NEURO EXAM: GCS: M V E Mental Status: The patient is alert and oriented to person, place, and time with normal speech. Cranial Nerves: Visual acuity intact bilaterally. Visual de león normal in all quadrants. Pupils are round, reactive to light. Extraocular movements are intact without ptosis. Hearing is normal bilaterally. Voice is normal. Tongue protrudes midline and moves symmetrically. Reflexes: Biceps, patellar, and Achilles are 2/4 bilaterally. No clonus. Sensation: Sensation is intact bilaterally to pain and light touch. Two-point discrimination is intact. Motor: Good muscle tone. Strength is 5/5 bilaterally. Cerebellar: [id number] and [id number] test normal bilaterally. Laboratory Laboratory Tests Test 12/16/16 18:40 White Blood Count 7.8 Red Blood Count 1.87 Hemoglobin 6.1 Hematocrit 18.0 Mean Corpuscular Volume 96.1 Mean Corpuscular Hemoglobin 32.4 Mean Corpuscular Hemoglobin Concent 33.8 Red Cell Distribution Width 19.8 Platelet Count 41 Mean Platelet Volume 10.0 CBC Comment AUTO DIFF Differential Total Cells Counted 100 Neutrophils % (Manual) 61 Band Neutrophils % 5 Lymphocytes % 5 Monocytes % 8 Neutrophils # (Manual) 6.8 Metamyelocytes 6 Myelocytes 15 Nucleated Red Blood Cells 8 Differential Comment FINAL DIFF MANUAL Platelet Estimate LOW Platelet Morphology Comment NORMAL Ovalocytes 1+ Prothrombin Time 24.9 Prothromb Time International Ratio 2.2 Activated Partial Thromboplast Time 27.4 Blood Urea Nitrogen 49 Creatinine 1.19 Random Glucose 207 Total Protein 7.3 Albumin 2.9 Calcium Level 9.0 Alkaline Phosphatase 273 Aspartate Amino Transf (AST/SGOT) 4819 Alanine Aminotransferase (ALT/SGPT) 3329 Total Bilirubin 1.4 Sodium Level 132 Potassium Level 5.8 Chloride Level 99 Carbon Dioxide Level 14.7 Anion Gap 18 Estimat Glomerular Filtration Rate 45 Total Creatine Kinase 177 Creatine Kinase MB 3.9 Troponin I 0.29 B-Type Natriuretic Peptide 3373 Lipase 130 Thyroid Stimulating Hormone 3rd Gen 5.950 Date/Time Source Procedure Growth Status 12/16/16 18:50 Blood Peripheral Aerobic Blood Culture Pending Received 12/16/16 18:50 Blood Peripheral Anaerobic Blood Culture Pending Received Result Diagram: 12/16/16 1840 12/16/16 184 Imaging Last 24 hours Impressions Chest X-Ray 12/16/16 1829 Signed Impressions: Service Date/Time: Friday, December 16, 2016 18:58 - CONCLUSION: 1. Previous partial left lung resection with elevated left hemidiaphragm. Mild basilar airspace disease similar to October 30. [id number] in superior vena cava. Postop CABG. Hans Manzanares MD Lung Scan Nuclear Medicine 12/16/16 0000 Signed Impressions: Service Date/Time: Friday, December 16, 2016 21:20 - CONCLUSION: 1. Low probability for pulmonary embolus. Hans Manzanares MD Caprini VTE Risk Assessment Caprini VTE Risk Assessment: Mod/High Risk (score >= 2) Caprini Risk Assessment Model Point Value = 1 Point Value = 2 Point Value = 3 Point Value = 5 Age 41-60 Minor surgery BMI > 25 kg/m2 Swollen legs Varicose veins or History of unexplained or recurrent spontaneous Oral contraceptives or hormone replacement Sepsis (< 1 month) Serious lung disease, including pneumonia (< 1 month) Abnormal pulmonary function Acute myocardial infarction Congestive heart failure (< 1 month) History of inflammatory bowel disease Medical patient at bed rest Age 61-74 Arthroscopic surgery Major open surgery (> 45 min) Laparoscopic surgery (> 45 min) Malignancy Confined to bed (> 72 hours) Immobilizing plaster cast Central venous access Age >= 75 History of VTE Family history of VTE Factor V Leiden Prothrombin [id number] Lupus anticoagulant Anticardiolipin antibodies Elevated serum homocysteine Heparin-induced thrombocytopenia Other congenital or acquired thrombophilia Stroke (< 1 month) Elective arthroplasty Hip, pelvis, or leg fracture Acute spinal cord injury (< 1 month) Prophylaxis Regimen Total Risk Factor Score Risk Level Prophylaxis Regimen 0-1 Low Early ambulation 2 Moderate Order ONE of the following: *Sequential Compression Device (SCD) *Heparin 5000 units SQ BID 3-4 Higher Order ONE of the following medications: *Heparin 5000 units SQ TID *Enoxaparin/Lovenox 40 mg SQ daily (WT < 150 kg, CrCl > 30 mL/min) *Enoxaparin/Lovenox 30 mg SQ daily (WT < 150 kg, CrCl > 10-29 mL/min) *Enoxaparin/Lovenox 30 mg SQ BID (WT < 150 kg, CrCl > 30 mL/min) AND/OR *Sequential Compression Device (SCD) 5 or more Highest Order ONE of the following medications: *Heparin 5000 units SQ TID (Preferred with Epidurals) *Enoxaparin/Lovenox 40 mg SQ daily (WT < 150 kg, CrCl > 30 mL/min) *Enoxaparin/Lovenox 30 mg SQ daily (WT < 150 kg, CrCl > 10-29 mL/min) *Enoxaparin/Lovenox 30 mg SQ BID (WT < 150 kg, CrCl > 30 mL/min) AND *Sequential Compression Device (SCD) Assessment and Plan Assessment and Plan Respiratory failure - Status post lobectomy - Underlying COPD - Stat ABG - DuoNeb scheduled and when necessary - IV steroids - Empiric antibiotics - Urine antigens Diabetes mellitus - Hold metformin while in the ICU - Insulin sliding scale CHF - Gentle diuresis - Repeat 2-D echo CAD - s/p CABG - Elevated troponins - ?? Severe anemia - No EKG changes suggestive acute coronary syndrome - Monitor trend troponin levels and EKGs Severe anemia - Possibly due to chemotherapy - Transfuse 2 units of PRBCs - Series of H&H - Teds feels for hemoglobin less than 7 Hypothyroidism - Continue home levothyroxine - TSH elevated - Initial one dose of IV levothyroxine DVT GI prophylaxis - Teds SCDs - Subcutaneous heparin - Protonix IV twice a day Critical Care: The total critical care time was 35 minutes. Time to perform other separately billable procedures was not included in the critical care time. Ike Mcknight MD Dec 16, 2016 20:55
[2016-12-16] MEDS ORDERED: LACTULOSE SYRUP 20 GM/30 ML CUP PO PRN (21:00)
[2016-12-16] MEDS ORDERED: NON-FORMULARY DRUG (Fluticasone-Salmeterol Inh (Advair Diskus Inh) 1 PUFF) INH SCH (21:00)
[2016-12-16] MEDS ORDERED: SODIUM CHLORIDE 0.9% FLUSH 10 ML FLUSH IV FLUSH PRN (21:00)
[2016-12-16] MEDS ORDERED: SODIUM CHLOR 0.9% 1000 ML INJ 1,000 ML IV SCH (21:00)
[2016-12-16] MEDS ORDERED: ALBUTEROL SULFATE 90 MCG/ACT HFA 8 GM INHALER INH PRN (21:00)
[2016-12-16] MEDS ORDERED: MORPHINE SULFATE 4 MG/ML INJ IV PUSH PRN (21:00)
[2016-12-16] MEDS ORDERED: SENNOSIDES 8.6 MG TAB PO PRN (21:00)
[2016-12-16] MEDS ORDERED: MISCELLANEOUS NURSING INFORMATION XX SCH (21:00)
[2016-12-16] MEDS ORDERED: MAGNESIUM HYDROXIDE SUSP 30 ML CUP PO PRN (21:00)
[2016-12-16] MEDS ORDERED: BISACODYL 10 MG SUPP RECTAL PRN (21:00)
[2016-12-16] MEDS ORDERED: ONDANSETRON HCL 4 MG/2 ML VIAL IV PUSH PRN (21:00)
[2016-12-16] MEDS ORDERED: ACETAMINOPHEN 325 MG TAB PO PRN (21:00)
[2016-12-16] MEDS ORDERED: RESP: ALBUTEROL 2.5 MG/IPRATROPIUM 0.5 MG NEB (PRN) INH (21:00)
[2016-12-16] MEDS ORDERED: CHLORHEXIDINE GLUCONATE 2 % 1 PACK (2 CLOTHS) TOP PRN (21:00)
[2016-12-16] MEDS: SODIUM CHLORIDE 0.9% FLUSH 10 ML FLUSH IV FLUSH SCH (21:35)
[2016-12-16] MEDS: PANTOPRAZOLE SODIUM 40 MG VIAL IV PUSH SCH (21:35)
[2016-12-16] MEDS: METOPROLOL TARTRATE 50 MG TAB PO SCH (21:35)
--- NOTE | 2016-12-16 22:38 | RADRPT ---
EXAM DATE/TIME: 12/16/2016 21:20 [place] COMPARISON: No previous studies available for comparison. INDICATIONS : Chest pain and dyspnea. History of lung cancer. DOSE: 8.8 mCi Tc99m Labeled MAA IV leftt hand. MEDICAL HISTORY : Carcinoma, lung. Chronic obstructive pulmonary disease. Myocardial infarction. CHF. DM.COPD SURGICAL HISTORY : Hysterectomy. CABG Lobectomy. ENCOUNTER: Initial ACUITY: 2 days PAIN SCALE: 3/10 LOCATION: Bilateral chest TECHNIQUE: The patient was injected with MAA, and eight-view perfusion scan was performed. FINDINGS: There is elevation of the left hemidiaphragm and partial resection of the left lung. No segmental per fusion defects. CONCLUSION: 1. Low probability for pulmonary embolus. Hans Manzanares MD on December 16, 2016 at 22:36 Board Certified Radiologist. This report was verified electronically.
[2016-12-16] MEDS ORDERED: LEVOTHYROXINE SODIUM 100 MCG VIAL IV PUSH ONE (23:45)
[2016-12-16] MEDS: DOCUSATE SODIUM 50 MG/SENNA 8.6 MG TAB PO SCH (23:52)
[2016-12-16] MEDS: BUDESONIDE-FORMOTEROL 80/4.5 MCG INHALER INH SCH (23:52)
[2016-12-17] VITALS (29 sets, daily range): BP systolic 117–170; BP diastolic 61–95; PULSE 63–79; RESP 12–28; TEMP 97.9–99; O2SAT 94–100
[2016-12-17] MEDS ORDERED: ALPRAZolam 1 MG TAB PO ONE (00:15)
[2016-12-17] MEDS ORDERED: FUROSEMIDE 100 MG/10 ML VIAL IV PUSH ONE (00:15)
[2016-12-17] MEDS: methylPREDNISolone SOD SUCC 40 MG/1 ML VIAL IV PUSH SCH ×2 (00:50→06:19)
[2016-12-17 01:00] LABS: BACTERIA, URINE MANY /hpf; BLOOD, URINE TRACE (NEG); COMMENT (UR) CULTURE INDICATED; CULTURE IF INDICATED CULTURE INDICATED; GLUCOSE,URINE NEG (NEG); HYALINE CAST, URINE 7 /lpf (RARE); KETONE, URINE TRACE mg/dL (NEG); MUCUS URINE FEW /lpf (OCC); NITRITE,URINE NEG (NEG); PH, URINE 5.5 (5.0-8.5); SQUAMOUS EPITHELIAL CELL URINE 1 /hpf (0-5); URINE COLOR YELLOW (YELLW/STRAW)
[2016-12-17 01:06] LABS: BLOOD GAS CARBOXYHEMOGLOBIN 1.5 % (0-4); BLOOD GAS HCO3 14 mmol/L (22-26); BLOOD GAS METHEMOGLOBIN 1.5 % (0-2); BLOOD GAS O2 HGB SATURATION 95 % (90-100); BLOOD GAS OXYGEN CONTENT 11.1 Vol % (12.0-20.0); BLOOD GAS PCO2 29 mmHg (38-42); BLOOD GAS PO2 110 mmHg (61-120); BLOOD GAS TOTAL HGB 8.2 G/DL (12.0-16.0); TEMP CORR TO 98.6
[2016-12-17 01:07] LABS: CRITICAL VALUE YES; DRAW SITE RT RADIAL; LITER FLOW 2 L/M; NUMBER OF ARTERIAL PUNCTURES 1; OXYGEN DEVICE NASAL CANNULA; STAT YES; ULNAR PULSE PRESENT
[2016-12-17] MEDS ORDERED: SODIUM BICARBONATE 8.4% INJ 50 MEQ/50 ML SYR IV PUSH ONE (01:30)
[2016-12-17] MEDS: AZITHROMYCIN INJ 500 MG in SODIUM CHLOR 0.9% 250 ML INJ 250 ML IV SCH (01:54)
[2016-12-17] MEDS: AZTREONAM INJ 2,000 MG in SODIUM CHLORIDE 0.9% INJ 100 ML IV SCH ×4 (03:41→22:35)
[2016-12-17] MEDS: CHLORHEXIDINE GLUCONATE 2 % 1 PACK (2 CLOTHS) TOP SCH (03:41)
[2016-12-17] MEDS: RESP: ALBUTEROL 2.5 MG/IPRATROPIUM 0.5 MG NEB (SCH) INH ×2 (03:51→07:46)
[2016-12-17] MEDS: LEVOTHYROXINE SODIUM 112 MCG TAB PO SCH (06:19)
[2016-12-17 07:13] LABS: AUTOMATED NEUTROPHIL # 3.7 TH/MM3 (1.8-7.7); BASOPHIL % 0.4 % (0.0-2.0); HEMATOCRIT 28.7 % (35.0-46.0); LYMPHOCYTE # 0.6 TH/MM3 (1.0-4.8); MEAN CELL VOLUME 92.1 FL (80.0-100.0); MEAN CORPUSCULAR HEMOGLOBIN 31.7 PG (27.0-34.0); MEAN CORPUSCULAR HGB CONC 34.4 % (32.0-36.0); MONO % 8.8 % (0.0-8.0); NEUT % 77.8 % (16.0-70.0); PLATELET COUNT 31 TH/MM3 (150-450); RED BLOOD COUNT 3.11 MIL/MM3 (4.00-5.30); RED CELL DISTRIBUTION WIDTH 16.4 % (11.6-17.2); WHITE BLOOD COUNT 4.8 TH/MM3 (4.0-11.0)
[2016-12-17 07:22] LABS: HEMO FLAGS AUTO DIFF
[2016-12-17 07:42] LABS: ANION GAP 14 MEQ/L (5-15); BICARBONATE 18.6 MEQ/L (21.0-32.0); BLOOD UREA NITROGEN 56 MG/DL (7-18); CHLORIDE 100 MEQ/L (98-107); GLOMERULAR FILTRATION RATE 50 ML/MIN (>89); MAGNESIUM 1.8 MG/DL (1.5-2.5); POTASSIUM 5.7 MEQ/L (3.5-5.1); SODIUM (NA) 133 MEQ/L (136-145)
[2016-12-17 07:54] LABS: ALKALINE PHOSPHATASE 257 U/L (45-117); ALT (GPT) 3353 U/L (10-53); TOTAL BILIRUBIN ADULT 3.1 MG/DL (0.2-1.0)
[2016-12-17 07:56] LABS: AST (GOT) 4207 U/L (15-37)
[2016-12-17] MEDS: BUDESONIDE-FORMOTEROL 80/4.5 MCG INHALER INH SCH ×2 (08:26→21:00)
[2016-12-17] MEDS: METOPROLOL TARTRATE 50 MG TAB PO SCH ×2 (08:29→22:35)
[2016-12-17] MEDS: DOCUSATE SODIUM 50 MG/SENNA 8.6 MG TAB PO SCH ×2 (08:29→21:00)
[2016-12-17] MEDS: PANTOPRAZOLE SODIUM 40 MG VIAL IV PUSH SCH ×2 (08:29→22:34)
[2016-12-17] MEDS ORDERED: PANTOPRAZOLE SOD 40 MG DELAYED RELEASE TAB PO SCH (09:00)
[2016-12-17] MEDS: SODIUM CHLORIDE 0.9% FLUSH 10 ML FLUSH IV FLUSH SCH ×2 (09:00→22:34)
[2016-12-17] MEDS ORDERED: NON-FORMULARY DRUG (Fish Oil-Cholecalciferol (Fish Oil + D3) 1 CAP) PO SCH (09:00)
[2016-12-17] MEDS ORDERED: GLIMEPIRIDE 2 MG TAB PO SCH (09:00)
[2016-12-17] MEDS ORDERED: NON-FORMULARY DRUG (Omeprazole 40 MG) PO SCH (09:00)
[2016-12-17] MEDS ORDERED: RESP: ALBUTEROL 2.5 MG/IPRATROPIUM 0.5 MG NEB (PRN) NEB (09:45)
[2016-12-17] MEDS ORDERED: SODIUM POLYSTYRENE SULFONATE SUSP 15 GM/60 ML CUP PO ONE (09:45)
[2016-12-17] MEDS ORDERED: BUMETANIDE INJ 1 MG/4 ML VIAL IV PUSH ONE (09:45)
[2016-12-17] MEDS ORDERED: DEXTROSE 50% IN WATER 50 ML VIAL(D50) IV PUSH PRN (09:45)
[2016-12-17] MEDS ORDERED: GLUCAGON 1 MG/ML VIAL OTHER PRN ×2 (09:45→15:45)
--- NOTE | 2016-12-17 10:01 | HHI.CCPN ---
Subjective Remarks/Hospital Course 71-year-old female that presents for evaluation of chest pain and shortness of breath. Per patient she's had this on and off since been on a bus trip to [place]. Her shortness of breath has progressively gotten worse. She has a history of lung cancer, ACS, quadruple bypass as well as diabetes and high blood pressure and high cholesterol. She receives chemotherapy every 3 weeks. She last had it 3 weeks ago. She doesn't use oxygen at home. Patient was found to be profoundly hypoxic in the 80s and was put on oxygen with breathing treatments with some improvement. She states that the pain feels like a pressure. She does have a history of CHF as well. She denies any significant swelling. She denies any headache. Does not take any blood thinners. 12/17 Patient s/p transfusion 2units PRBC last night Hgb 9.9 this morning from 6.1 Given Lasix 60mg x1 . Afebrile. Lung scan negative for PE. Objective Vital Signs Date Time Temp Pulse Resp B/P (MAP) Pulse Ox O2 Delivery O2 Flow Rate FiO2 12/17/16 07:47 95 21 12/17/16 06:01 71 13 163/95 (117) 12/17/16 04:00 98.6 12/16/16 22:58 Nasal Cannula 2.00 Intake and Output 12/17/16 12/17/16 12/18/16 08:00 16:00 00:00 Intake Total 1270 ml Output Total 500 ml Balance 770 ml Result Diagram: 12/17/1661112/17/16611 Other Results Laboratory Tests Test 12/16/16 18:40 12/16/16 22:15 12/17/16 00:20 12/17/16 00:45 White Blood Count 7.8 TH/MM3 Red Blood Count 1.87 MIL/MM3 Hemoglobin 6.1 GM/DL Hematocrit 18.0 % Mean Corpuscular Volume 96.1 FL Mean Corpuscular Hemoglobin 32.4 PG Mean Corpuscular Hemoglobin Concent 33.8 % Red Cell Distribution Width 19.8 % Platelet Count 41 TH/MM3 Mean Platelet Volume 10.0 FL CBC Comment AUTO DIFF Differential Total Cells Counted 100 Neutrophils % (Manual) 61 % Band Neutrophils % 5 % Lymphocytes % 5 % Monocytes % 8 % Neutrophils # (Manual) 6.8 TH/MM3 Metamyelocytes 6 % Myelocytes 15 % Nucleated Red Blood Cells 8 /100 WBC Differential Comment FINAL DIFF MANUAL Platelet Estimate LOW Platelet Morphology Comment NORMAL Ovalocytes 1+ Prothrombin Time 24.9 SEC Prothromb Time International Ratio 2.2 RATIO Activated Partial Thromboplast Time 27.4 SEC Blood Urea Nitrogen 49 MG/DL Creatinine 1.19 MG/DL Random Glucose 207 MG/DL Total Protein 7.3 GM/DL Albumin 2.9 GM/DL Calcium Level 9.0 MG/DL Alkaline Phosphatase 273 U/L Aspartate Amino Transf (AST/SGOT) 4819 U/L Alanine Aminotransferase (ALT/SGPT) 3329 U/L Total Bilirubin 1.4 MG/DL Sodium Level 132 MEQ/L Potassium Level 5.8 MEQ/L Chloride Level 99 MEQ/L Carbon Dioxide Level 14.7 MEQ/L Anion Gap 18 MEQ/L Estimat Glomerular Filtration Rate 45 ML/MIN Total Creatine Kinase 177 U/L Creatine Kinase MB 3.9 NG/ML Troponin I 0.29 NG/ML B-Type Natriuretic Peptide 3373 PG/ML Lipase 130 U/L Thyroid Stimulating Hormone 3rd Gen 5.950 uIU/ML Nasal Screen MRSA (PCR) MRSA NOT DETECTED Urine Color YELLOW Urine Turbidity HAZY Urine pH 5.5 Urine Specific [place] 1.018 Urine Protein 30 mg/dL Urine Glucose (UA) NEG mg/dL Urine Ketones TRACE mg/dL Urine Occult Blood TRACE Urine Nitrite NEG Urine Bilirubin NEG Urine Urobilinogen 2.0 MG/DL Urine Leukocyte Esterase TRACE Urine RBC 1 /hpf Urine WBC 8 /hpf Urine Squamous Epithelial Cells 1 /hpf Urine Amorphous Sediment RARE Urine Bacteria MANY /hpf Urine Hyaline Casts 7 /lpf Urine Mucus FEW /lpf Microscopic Urinalysis Comment CULTURE INDICATED Blood Gas Puncture Site RT RADIAL Blood Gas Patient Temperature 98.6 Blood Gas HCO3 14 mmol/L Blood Gas Base Excess -11.0 mmol/L Blood Gas Oxygen Saturation 95 % Arterial Blood pH 7.31 Arterial Blood Partial Pressure CO2 29 mmHg Arterial Blood Partial Pressure O2 110 mmHg Arterial Blood Oxygen Content 11.1 Vol % Arterial Blood Carboxyhemoglobin 1.5 % Arterial Blood Methemoglobin 1.5 % Blood Gas Hemoglobin 8.2 G/DL Oxygen Delivery Device NASAL CANNULA Blood Gas Liter Flow 2 L/M Test 12/17/16 06:12 White Blood Count 4.8 TH/MM3 Red Blood Count 3.11 MIL/MM3 Hemoglobin 9.9 GM/DL Hematocrit 28.7 % Mean Corpuscular Volume 92.1 FL Mean Corpuscular Hemoglobin 31.7 PG Mean Corpuscular Hemoglobin Concent 34.4 % Red Cell Distribution Width 16.4 % Platelet Count 31 TH/MM3 Mean Platelet Volume 9.7 FL Neutrophils (%) (Auto) 77.8 % Lymphocytes (%) (Auto) 13.0 % Monocytes (%) (Auto) 8.8 % Eosinophils (%) (Auto) 0.0 % Basophils (%) (Auto) 0.4 % Neutrophils # (Auto) 3.7 TH/MM3 Lymphocytes # (Auto) 0.6 TH/MM3 Monocytes # (Auto) 0.4 TH/MM3 Eosinophils # (Auto) 0.0 TH/MM3 Basophils # (Auto) 0.0 TH/MM3 CBC Comment AUTO DIFF Blood Urea Nitrogen 56 MG/DL Creatinine 1.08 MG/DL Random Glucose 280 MG/DL Total Protein 6.9 GM/DL Albumin 2.9 GM/DL Calcium Level 8.9 MG/DL Phosphorus Level 4.1 MG/DL Magnesium Level 1.8 MG/DL Alkaline Phosphatase 257 U/L Aspartate Amino Transf (AST/SGOT) 4207 U/L Alanine Aminotransferase (ALT/SGPT) 3353 U/L Total Bilirubin 3.1 MG/DL Sodium Level 133 MEQ/L Potassium Level 5.7 MEQ/L Chloride Level 100 MEQ/L Carbon Dioxide Level 18.6 MEQ/L Anion Gap 14 MEQ/L Estimat Glomerular Filtration Rate 50 ML/MIN Troponin I 0.29 NG/ML Imaging Last Impressions Chest X-Ray 12/16/16 1829 Signed Impressions: Service Date/Time: Friday, December 16, 2016 18:58 - CONCLUSION: 1. Previous partial left lung resection with elevated left hemidiaphragm. Mild basilar airspace disease similar to October 30. [id number] in superior vena cava. Postop CABG. Hans Manzanares MD Lung Scan Nuclear Medicine 12/16/16 0000 Signed Impressions: Service Date/Time: Friday, December 16, 2016 21:20 - CONCLUSION: 1. Low probability for pulmonary embolus. Hans Manzanares MD Objective Remarks GENERAL: Patient is 71 yo lying in bed in NAD. SKIN: Warm and dry. HEAD: Normocephalic. EYES: No scleral icterus. No injection or drainage. NECK: Supple, trachea midline. No JVD or lymphadenopathy. CARDIOVASCULAR: Regular rate and rhythm without murmurs, gallops, or rubs. RESPIRATORY: Breath sounds equal bilaterally. No accessory muscle use. GASTROINTESTINAL: Abdomen soft, non-tender, nondistended. MUSCULOSKELETAL: No cyanosis, or edema. Neuro: Awake and alert. A/P Assessment and Plan 1)Respiratory Insuff - Status post lobectomy 2)COPD, Lung ca 3)Severe Anemia 4)CHF decomp 5)Mild elevated trop 6)Mild THAI 7)Diabetes mellitus 8)CAD - s/p CABG 9)Hypothyroidism 10)Thrombocytopenia 11)Coagulopathy Plan Neuro: Monitor neuro status, avoid sedatives Pulm: Continue with oxygen keep sat >92% Bronchodilators. CV: Monitor HR and BP keep MAP>65mmHg For 2D echo to eval LV function. d/c IVF Diurese with Bumex 1mg x1. Consult cards : Monitor renal function, I/O's, avoid nephrotoxins Given Kayexalate 30gms x1. On Demadex 10mg BID GI: Monitor LFT;s, check US Liver . GI eval. Check Hepatitis profile. On Protonix 40mg BID ID: Continue with abx ( Aztreonam, Azithromycin) Monitor for signs of infections ( Fever, WBC) Follow up on cxs Heme: Monitor CBC, coags s/p transfusion 2units PRBC last night. Check Coags, INR/PT, Fibrinogen level. Onc is following- Dr. Neville- s/p chemo 3 weeks ago. Endo: Place on SSI -medium scale and Levemir 7units BID On Synthroid 112 mcg daily. TSH: 5.9 GI prophylaxis- On Prootnix 40mg BID DVT prophylaxis- Patient's INR 2.2 last night. No need for further AC. Will sign off and transfer care to [facility] Level 3 Pieter Seth MD Dec 17, 2016 10:01
[2016-12-17 10:18] LABS: BLOOD GAS BASE EXCESS -6.6 mmol/L (-2-2); BLOOD GAS CARBOXYHEMOGLOBIN 2.2 % (0-4); BLOOD GAS HCO3 18 mmol/L (22-26); BLOOD GAS METHEMOGLOBIN 1.4 % (0-2); BLOOD GAS O2 HGB SATURATION 88 % (90-100); BLOOD GAS OXYGEN CONTENT 12.1 Vol % (12.0-20.0); BLOOD GAS PCO2 33 mmHg (38-42); BLOOD GAS PO2 67 mmHg (61-120); BLOOD GAS TOTAL HGB 9.7 G/DL (12.0-16.0); TEMP CORR TO 98.6
[2016-12-17 10:19] LABS: DRAW SITE RRA; FIO2 21 %; NUMBER OF ARTERIAL PUNCTURES 1; STAT YES; ULNAR PULSE PRESENT
[2016-12-17] MEDS: INSULIN NovoLIN REGULAR SUPPLEMENTAL SCALE SQ SCH ×3 (10:30→15:41)
[2016-12-17] MEDS ORDERED: INSULIN DETEMIR 100 UNITS/ML VIAL SQ SCH (10:45)
[2016-12-17] MEDS: TORSEMIDE 5 MG TAB PO SCH ×2 (10:54→18:06)
--- NOTE | 2016-12-17 11:03 | EKG ---
Date Performed: 12/16/2016 Time Performed: 19:17:15 PTAGE: 71 years EKG: Sinus rhythm POSSIBLE INFERIOR MYOCARDIAL INFARCTION Diffuse ST-T wave changes Compared to previous tracing previ ously seen diffuse ST-T wave changes have improved slightly BORDERLINE ECG PREVIOUS TRACING : 10/30/2016 15.54 DOCTOR: Magno Patino Interpretating Date/Time 12/17/2016 11:02:25
--- NOTE | 2016-12-17 11:03 | EKG ---
Date Performed: 12/17/2016 Time Performed: 03:37:54 PTAGE: 71 years EKG: Sinus rhythm Possible inferior infarct - age undetermined QRS changes V3/V4 may be due to LVH but cannot rule out anterior infarct Lateral ST-T changes may be due to myocardial ischemia Low QRS voltages in precordi al leads Compared to prior tracing no significant change Abnormal ECG PREVIOUS TRACING : 12/16/2016 19.17 DOCTOR: Magno Patino Interpretating Date/Time 12/17/2016 11:02:51
[2016-12-17 11:48] LABS: BANDS 18 % (0-6); CORRECTED NUCLEATED RBC 3 /100 WBC (0-0); METAMYELOCYTES 5 % (0-1); MYELOCYTES 5 % (0-0); POLYS (SEG NEUTROPHILS) 53 % (16-70); PROMYELOCYTES 3 % (0-0); WBC DIFF SAMPLE 100
[2016-12-17 11:50] LABS: PLATELET ESTIMATE SMEAR LOW (NORMAL); PLATELET MORPHOLOGY NORMAL (NORMAL); SCAN/DIFF FINAL DIFF MANUAL
--- NOTE | 2016-12-17 11:53 | PD.CONS ---
HPI History of Present Illness This is a 71 year old who presented to the emergency room for evaluation of shortness of breath. She was diagnosed with Stage III non-small cell lung cancer in May of 2016. She underwent left upper lobectomy with Dr. Villarreal and was then started on carboplatin and Gemzar chemotherapy in August. She receives this every three weeks and is followed by Dr. Neville. She was admitted to the intensive care unit for respiratory insuffiency secondary to COPD in patient with hx lobectomy, CHF, severe anemia, mildly elevated troponin, mildly acute kidney injury, and thrombocytopenia. On admission, the patient was noted to have H/H 6.1/18.0, Platelets 41 (of note had been down to 15 on 12/03), LFTs with T. Bili 1.4, AST 4819, ALT 3329, ALk Phosph 273. GI has been consulted for further evaluation of elevated liver enzymes. A hepatitis profile and RUQ US has been ordered and is pending. She is currently very lethargic and a poor historian. She answers a few simple "yes/no" questions, but then drifts back off to sleep. She denies any nausea or vomiting. She denies abdominal pain. She is not aware of any history of liver problems. She states that she has not been hungry. The nurse reports that she has been lethargic and confused. PFSH Past Medical History Arteriosclerotic vascular disease Cataract Chronic kidney disease COPD Diabetes Hypertension Hypothyroidism Obesity Psoriasis Coronary artery disease Lung cancer. Non-small cell lung cancer CHF Hyperlipidemia Hx multiple sclerosis Hx CVA Past Surgical History History of CABG Left upper lobe lobectomy Cataract surgery CABG Hysterectomy Colonoscopy Lung biopsy [id number] Coded Allergies: Sulfa (Sulfonamide Antibiotics) (Unverified Allergy, Severe, Swelling, ) aspirin (Unverified Allergy, Severe, Swelling, 10/09/16) atorvastatin (Unverified Allergy, Severe, VOMITING, 10/09/16) clarithromycin (Unverified Allergy, Severe, Swelling, 10/09/16) penicillin G (Unverified Allergy, Severe, Swelling, 10/09/16) Medications Allergies Coded Allergies Type Severity Reaction Last Updated Verified Sulfa (Sulfonamide Antibiotics) Allergy Severe Swelling 10/09/16 No aspirin Allergy Severe Swelling 10/09/16 No atorvastatin Allergy Severe VOMITING 10/09/16 No clarithromycin Allergy Severe Swelling 10/09/16 No penicillin G Allergy Severe Swelling 10/09/16 No Active Scripts Medications Dose Route/Sig Max Daily Dose Days Date Category Dose Instructions Torsemide 5 Mg Tab 10 Mg PO BID@11/01/16 Rx Metformin (Metformin HCl) 1,000 Mg Tab 1,000 Mg PO BIDPC 10/30/16 Reported With meals Fish Oil + D3 (Fish Oil-Cholecalciferol) 1,200-1,000 Mg-Unit Cap 1 Cap PO DAILY 09/18/16 Reported Omeprazole 40 Mg Cap 40 Mg PO DAILY 09/17/16 Reported Metoprolol Tartrate 50 Mg Tab 50 Mg PO BID 09/17/16 Reported Levothyroxine (Levothyroxine Sodium) 112 Mcg Tab 112 Mcg PO DAILY 09/17/16 Reported Glimepiride 2 Mg Tab 6 Mg PO DAILY 09/17/16 Reported Take with breakfast or first main meal Proventil Hfa 6.7 GM Inh (Albuterol Sulfate) 90 Mcg/Act Aer 1 Puff INH Q4H PRN 09/17/16 Reported Advair Diskus Inh (Fluticasone-Salmeterol Inh) 100-50 Mcg/Blist Aer 1 Puff INH BID 09/17/16 Reported Rinse mouth after use. Family History Mother had colon cancer Father had laryngeal cancer Social History Does not currently smoke, has a 57 pack year smoking hx. No ETOH. Review of Systems Constitutional: COMPLAINS OF: Fatigue, Change in appetite, DENIES: Fever, Chills Respiratory: COMPLAINS OF: Shortness of breath Gastrointestinal: DENIES: Abdominal pain, Nausea, Vomiting Psychiatric: COMPLAINS OF: Confusion ROS Poor historian GI Exam Vitals I&O Vital Signs Date Time Temp Pulse Resp B/P (MAP) Pulse Ox O2 Delivery O2 Flow Rate FiO2 12/17/16 11:00 98.5 72 28 143/69 (93) 100 12/17/16 10:42 94 Nasal Cannula 2.00 12/17/16 10:00 98.4 72 26 170/85 (113) 100 12/17/16 10:00 76 12/17/16 09:00 98.9 75 27 154/95 (114) 97 12/17/16 08:00 75 12/17/16 08:00 98.9 69 14 149/82 (104) 96 12/17/16 07:47 95 21 12/17/16 07:00 99.0 69 14 149/82 (104) 96 12/17/16 06:01 71 13 163/95 (117) 98 12/17/16 06:00 73 12/17/16 06:00 71 14 98 12/17/16 05:00 66 24 117/74 (88) 100 12/17/16 04:00 63 12/17/16 04:00 98.6 63 15 119/63 (81) 100 12/17/16 03:00 98.3 72 17 117/69 (85) 100 12/17/16 02:59 98.3 72 18 117/69 100 12/17/16 02:00 74 12/17/16 02:00 98.3 74 18 132/61 (84) 100 12/17/16 00:44 98.4 71 14 147/67 100 12/17/16 00:44 98.3 70 14 147/67 100 12/17/16 00:00 75 12/17/16 00:00 98.3 75 25 147/67 (93) 100 12/16/16 23:02 98.2 72 17 154/68 100 12/16/16 22:58 100 Nasal Cannula 2.00 12/16/16 22:32 98.1 73 19 138/70 100 12/16/16 22:23 12/16/16 22:00 98.1 72 22 159/81 (107) 100 12/16/16 22:00 72 12/16/16 21:57 24 100 Nasal Cannula 2.00 12/16/16 19:07 95 Nasal Cannula 2.00 12/16/16 19:05 98 Nasal Cannula 2.00 12/16/16 19:03 97 Nasal Cannula 2.00 12/16/16 19:00 74 18 117/63 (81) 98 Nasal Cannula 2.00 12/16/16 19:00 18 98 Nasal Cannula 2.00 12/16/16 18:25 98.9 77 20 151/68 (95) 99 I/O 12/16/16 12/16/16 12/16/16 12/17/16 12/17/16 12/17/16 07:00 15:00 23:00 07:00 15:00 23:00 Intake Total 10 ml 1270 ml 500 ml Output Total 500 ml Balance 10 ml 770 ml 500 ml Intake Oral 150 ml IV Total 450 ml 500 ml Packed Cells 650 ml Blood Product IV Normal Saline Flush 10 ml 20 ml Output Urine Total 500 ml # Voids 3 # Bowel Movements 0 Imaging Last Impressions Chest X-Ray 12/16/16 1829 Signed Impressions: Service Date/Time: Friday, December 16, 2016 18:58 - CONCLUSION: 1. Previous partial left lung resection with elevated left hemidiaphragm. Mild basilar airspace disease similar to October 30. Vnydex-w-[id number] in superior vena cava. Postop CABG. Hans Manzanares MD Lung Scan Nuclear Medicine 12/16/16 0000 Signed Impressions: Service Date/Time: Friday, December 16, 2016 21:20 - CONCLUSION: 1. Low probability for pulmonary embolus. Hans Manzanares MD Laboratory Test 12/16/16 18:40 12/16/16 22:15 12/17/16 00:20 12/17/16 00:45 White Blood Count 7.8 TH/MM3 Red Blood Count 1.87 MIL/MM3 Hemoglobin 6.1 GM/DL Hematocrit 18.0 % Mean Corpuscular Volume 96.1 FL Mean Corpuscular Hemoglobin 32.4 PG Mean Corpuscular Hemoglobin Concent 33.8 % Red Cell Distribution Width 19.8 % Platelet Count 41 TH/MM3 Mean Platelet Volume 10.0 FL CBC Comment AUTO DIFF Differential Total Cells Counted 100 Neutrophils % (Manual) 61 % Band Neutrophils % 5 % Lymphocytes % 5 % Monocytes % 8 % Neutrophils # (Manual) 6.8 TH/MM3 Metamyelocytes 6 % Myelocytes 15 % Nucleated Red Blood Cells 8 /100 WBC Differential Comment FINAL DIFF MANUAL Platelet Estimate LOW Platelet Morphology Comment NORMAL Ovalocytes 1+ Prothrombin Time 24.9 SEC Prothromb Time International Ratio 2.2 RATIO Activated Partial Thromboplast Time 27.4 SEC Blood Urea Nitrogen 49 MG/DL Creatinine 1.19 MG/DL Random Glucose 207 MG/DL Total Protein 7.3 GM/DL Albumin 2.9 GM/DL Calcium Level 9.0 MG/DL Alkaline Phosphatase 273 U/L Aspartate Amino Transf (AST/SGOT) 4819 U/L Alanine Aminotransferase (ALT/SGPT) 3329 U/L Total Bilirubin 1.4 MG/DL Sodium Level 132 MEQ/L Potassium Level 5.8 MEQ/L Chloride Level 99 MEQ/L Carbon Dioxide Level 14.7 MEQ/L Anion Gap 18 MEQ/L Estimat Glomerular Filtration Rate 45 ML/MIN Total Creatine Kinase 177 U/L Creatine Kinase MB 3.9 NG/ML Troponin I 0.29 NG/ML B-Type Natriuretic Peptide 3373 PG/ML Lipase 130 U/L Thyroid Stimulating Hormone 3rd Gen 5.950 uIU/ML Nasal Screen MRSA (PCR) MRSA NOT DETECTED Urine Color YELLOW Urine Turbidity HAZY Urine pH 5.5 Urine Specific [place] 1.018 Urine Protein 30 mg/dL Urine Glucose (UA) NEG mg/dL Urine Ketones TRACE mg/dL Urine Occult Blood TRACE Urine Nitrite NEG Urine Bilirubin NEG Urine Urobilinogen 2.0 MG/DL Urine Leukocyte Esterase TRACE Urine RBC 1 /hpf Urine WBC 8 /hpf Urine Squamous Epithelial Cells 1 /hpf Urine Amorphous Sediment RARE Urine Bacteria MANY /hpf Urine Hyaline Casts 7 /lpf Urine Mucus FEW /lpf Microscopic Urinalysis Comment CULTURE INDICATED Blood Gas Puncture Site RT RADIAL Blood Gas Patient Temperature 98.6 Blood Gas HCO3 14 mmol/L Blood Gas Base Excess -11.0 mmol/L Blood Gas Oxygen Saturation 95 % Arterial Blood pH 7.31 Arterial Blood Partial Pressure CO2 29 mmHg Arterial Blood Partial Pressure O2 110 mmHg Arterial Blood Oxygen Content 11.1 Vol % Arterial Blood Carboxyhemoglobin 1.5 % Arterial Blood Methemoglobin 1.5 % Blood Gas Hemoglobin 8.2 G/DL Oxygen Delivery Device NASAL CANNULA Blood Gas Liter Flow 2 L/M Test 12/17/16 06:12 12/17/16 10:10 White Blood Count 4.8 TH/MM3 Red Blood Count 3.11 MIL/MM3 Hemoglobin 9.9 GM/DL Hematocrit 28.7 % Mean Corpuscular Volume 92.1 FL Mean Corpuscular Hemoglobin 31.7 PG Mean Corpuscular Hemoglobin Concent 34.4 % Red Cell Distribution Width 16.4 % Platelet Count 31 TH/MM3 Mean Platelet Volume 9.7 FL Neutrophils (%) (Auto) 77.8 % Lymphocytes (%) (Auto) 13.0 % Monocytes (%) (Auto) 8.8 % Eosinophils (%) (Auto) 0.0 % Basophils (%) (Auto) 0.4 % Neutrophils # (Auto) 3.7 TH/MM3 Lymphocytes # (Auto) 0.6 TH/MM3 Monocytes # (Auto) 0.4 TH/MM3 Eosinophils # (Auto) 0.0 TH/MM3 Basophils # (Auto) 0.0 TH/MM3 CBC Comment AUTO DIFF Blood Urea Nitrogen 56 MG/DL Creatinine 1.08 MG/DL Random Glucose 280 MG/DL Total Protein 6.9 GM/DL Albumin 2.9 GM/DL Calcium Level 8.9 MG/DL Phosphorus Level 4.1 MG/DL Magnesium Level 1.8 MG/DL Alkaline Phosphatase 257 U/L Aspartate Amino Transf (AST/SGOT) 4207 U/L Alanine Aminotransferase (ALT/SGPT) 3353 U/L Total Bilirubin 3.1 MG/DL Sodium Level 133 MEQ/L Potassium Level 5.7 MEQ/L Chloride Level 100 MEQ/L Carbon Dioxide Level 18.6 MEQ/L Anion Gap 14 MEQ/L Estimat Glomerular Filtration Rate 50 ML/MIN Troponin I 0.29 NG/ML B-Type Natriuretic Peptide 4042 PG/ML Salicylates Level LESS THAN 1.7 MG/DL Acetaminophen Level LESS THAN 2.0 MCG/ML Blood Gas Puncture Site RRA Blood Gas Patient Temperature 98.6 Blood Gas HCO3 18 mmol/L Blood Gas Base Excess -6.6 mmol/L Blood Gas Oxygen Saturation 88 % Arterial Blood pH 7.35 Arterial Blood Partial Pressure CO2 33 mmHg Arterial Blood Partial Pressure O2 67 mmHg Arterial Blood Oxygen Content 12.1 Vol % Arterial Blood Carboxyhemoglobin 2.2 % Arterial Blood Methemoglobin 1.4 % Blood Gas Hemoglobin 9.7 G/DL Blood Gas Inspired Oxygen 21 % Date/Time Source Procedure Growth Status 12/16/16 18:50 Blood Peripheral Aerobic Blood Culture - Preliminary NO GROWTH IN 1 DAY Resulted 12/16/16 18:50 Blood Peripheral Anaerobic Blood Culture - Preliminary NO GROWTH IN 1 DAY Resulted 12/17/16 00:20 Urine Catheterized Urine Legionella Antigen - Final PRESUMPTIVE NEGATIVE FOR LEGIONELLA P... Complete 12/17/16 00:20 Urine Catheterized Urine Streptococcus pneumoniae Antigen (M - Final PRESUMPTIVE NEGATIVE FOR STREPTOCOCCU... Complete Physical Examination HEENT: Normocephalic; atraumatic; no jaundice. CHEST: Resp. shallow, unlabored. Diminished CARDIAC: Regular rate and rhythm with no murmur gallop or rubs. ABDOMEN: Soft, nondistended, nontender; no hepatosplenomegaly; bowel sounds are present in all four quadrants. EXTREMITIES: BLE edema. SKIN: Normal; no rash; no jaundice. 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 Poor historian Assessment and Plan Plan ASSESSMENT: - Acute hepatitis, unclear etiology. No prior hx of liver problems and does not drink ETOH. She was recently diagnosed with Stage III lung cancer and was started on Carboplatin and Gemzar at the end of August and gets this q3 weeks and last had about 3 weeks ago. Home meds reviewed. She denies any nausea, vomiting, abdominal pain. She does have CHF. No documented hypotensive episodes. LFTs with T. Bili 1.4, AST 4819, ALT 3329, ALk Phosph 273. Hepatitis profile and US pending. Unclear etiology at this time, ? drug induced, congestive hepatopathy, will get liver workup to rule out other etiology and await US. - Severe anemia. HH 6.1/18.0. Of note, she last had chemotherapy 3weeks ago. No obvious blood loss. Responded appropriately to transfusion. S/P 2 units PRBC. HH 9.9/28.7. - Coagulopathy. INR 2.2, not on blood thinners. - Resp. 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 Nebs, diuretics , Azactam, Azithromycin, - CHF. Diuretics, - Stage III non-small cell lung cancer in May of 2016. She underwent left upper lobectomy with Dr. Villarreal and was then started on carboplatin and Gemzar chemotherapy in August. She receives this every three weeks and is followed by Dr. Neville. - CKD with electrolyte abnormalities. Creat. 1.08. - DM, HTN, Hypothyroidism, CAD, Hyperlipidemia per attending. PLAN: - NPO - Await hepatitis panel - RUQ US - ISABEL, ASMA, AMA - Ferritin, Iron saturation - Ceruloplasmin, Alpha 1 Antitrypsin - Monitor LFTs - Avoid hepatotoxic meds - Supportive care - Further recommendations to follow based on results of above - Pt seen and examined by Dr. Francois and myself and this note is written on his behalf Sharlene Mathew Dec 17, 2016 11:53
[2016-12-17] MEDS: RESP: ALBUTEROL 2.5 MG/IPRATROPIUM 0.5 MG NEB (SCH) NEB ×4 (12:00→23:39)
--- NOTE | 2016-12-17 12:44 | MB ---
cc: SHER KLEIN DO DATE OF CONSULTATION December 17, 2016 REASON FOR CONSULTATION Elevated troponin. Heart failure. HISTORY OF PRESENT ILLNESS Cari Andrade is a 71-year-old female who is known to my partner Dr. Perdomo who presented to [facility] Emergency Room on December 16, 2016, due to chest pain, shortness of breath. She states that she has had this on and off since being on a bus trip to [place]. Her shortness of breath has gotten significantly worse over the past week. She previously received chemotherapy around three weeks ago. It appears that at that time of receiving chemotherapy she was in Dr. Neville's office and was noted to be significantly short of breath and so she was recommended to be evaluated at the hospital. She at that time was started on diuretics which she had not been on before and was recommended followup with Dr. Perdomo for possible echo. At this time of seeing the patient she is currently lethargic but does not complain of chest pain. She does have some mild shortness of breath which she states is chronic over the past few weeks. PAST MEDICAL HISTORY 1. CAD. 2. Diabetes mellitus. 3. Chronic congestive heart failure of unknown type. 4. COPD. 5. History of CVA. 6. Psoriasis. 7. Hypothyroidism. PAST SURGICAL HISTORY 1. 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 1. CABG unknown number and unknown anatomy. 2. Cardiac catheterization (November 25, 2006). Left main short with no significant disease. The LAD is totally occluded proximally after the origin of small septal branch. Left circumflex is totally occluded in the midsegment after the origin of two small OM branches. The RCA was totally occluded proximally. Vein graft to the PDA was found to be patent and fills a posterior left ventricular branch. Vein graft to diagonal was found be patent, fills the LAD artery retrogradely. Vein graft to OM is totally occluded proximally. AMBROSIO was a small vessel, not used in grafting. 3. Left thoracotomy with left upper lobe lobectomy. ALLERGIES SULFA. ASPIRIN. LIPITOR CLARITHROMYCIN. PENICILLIN. MEDICATIONS 1. Albuterol every 4 hours as needed for shortness of breath. 2. Fish oil 1 tablet daily. 3. Metoprolol tartrate 50 mg b.i.d. 4. Furosemide 10 mg b.i.d. 5. Advair 100/50 b.i.d. 6. Omeprazole 40 mg daily 7. Metformin 1000 mg b.i.d. 8. Glimepiride 6 mg daily. 9. Synthroid 112 mcg daily. FAMILY HISTORY Mother had a history of colon cancer. Father had a history of laryngeal cancer. SOCIAL HISTORY The patient does not currently smoke. He has a 57 pack-year history of smoking. Denies alcohol. REVIEW OF SYSTEMS 14-systems were reviewed including osteopathic pertinent positives and negatives above, otherwise negative. PHYSICAL EXAMINATION VITAL SIGNS: Temperature 98.9, heart rate 75, blood pressure 154/95, respirations 25, pulse ox 97% on 2 liters. IN GENERAL: The patient appears in no acute distress, mildly lethargic, oriented x3. Extraocular muscles intact. Mucous membranes moist. NECK: Supple. No JVD at 45 degrees. No carotid bruits heard bilaterally. Carotid upstroke is brisk in nature. HEART: Regular rate and rhythm. Positive first and second heart sounds with no noted murmurs, gallops or rubs. LUNGS: Lungs have decreased breath sounds bilaterally with no overt wheezes, rales or rhonchi. Soft, nontender, nondistended. No organomegaly noted. EXTREMITIES: No clubbing, cyanosis or edema. Femoral and distal pulses intact bilaterally. NEUROLOGICALLY: Other than lethargy, no focal deficits. OSTEOPATHIC EXAM: No kyphoscoliosis, lordosis or paraspinal tender points. LABORATORY WORK Hemoglobin 9.9, hematocrit 28.7, platelets 31. INR 2.2. Potassium 5.7, BUN 56, creatinine 1.08. AST 4207, ALT 3353. Troponin 0.29. BNP 4042. ELECTROCARDIOGRAM (December 17, 2016 at 03:37) Sinus rhythm, possible inferior infarct age indeterminate, possible anterior infarction with poor R-wave progression, nonspecific ST-T wave changes. IMPRESSION 1. Elevated troponin, possibly type 2 in nature due to significant anemia versus type 1 with coronary artery disease. 2. History of coronary artery disease as above with previous coronary artery bypass grafting. 3. Respiratory failure which may be due to congestive heart failure. 4. Chronic congestive heart failure of unknown systolic versus diastolic 5. Diabetes mellitus 6. Severe anemia possibly due to chemotherapy 7. Significant thrombocytopenia, possibly due to chemotherapy. 8. History of Stage III non-small cell lung cancer followed by Dr. Neville. RECOMMENDATIONS 1. Ms. Andrade appears to have elevated troponin, chest pain and possible acute heart failure due to her current anemia. 2. She has been given 2 units of blood and this has stabilized her hemoglobin above 9. 3. Anemia and thrombocytopenia are most likely due to chemotherapy. 4. We will check an echo to look at her overall left ventricular function, cardiac structure and possible valvopathies. 5. With her current anemia and extensive thrombocytopenia, she is not an interventional cardiology candidate as she cannot be placed on high dose anticoagulants or long-term dual antiplatelet therapy. 6. She does have an ASPIRIN ALLERGY and I would like to place her Plavix daily if possible, although with her current platelet level this is most likely not possible. 7. We will attempt to treat her medically as best as possible. 8. Continue to diurese her. 9. Elevated INR and liver enzymes may be due to overall liver congestion from her congestive heart failure. 10. We will also have to evaluate her chemotherapies to make sure that they are not cardiotoxic in nature. Thank you for allowing me to see Cari Andrade. If there are any questions, please do not hesitate to call. Sher Klein DO VGP/SSB /12:05 PM /12:24 PM
[2016-12-17 15:02] LABS: INTERNATIONAL NORMALIZED RATIO 1.9 RATIO
[2016-12-17 15:09] LABS: PROTHROMBIN TIME - PATIENT 21.5 SEC (9.8-11.6); TRANSFERRIN IRON PROFILE 178 MG/DL (200-360)
[2016-12-17 15:27] LABS: FERRITIN 21385 NG/ML (8-252)
[2016-12-17] MEDS ORDERED: DEXTROSE 50% IN WATER 50 ML SYRINGE IV PUSH PRN (15:30)
[2016-12-17] MEDS ORDERED: MISC INFORMATION OTHER ONE (15:30)
[2016-12-17] MEDS ORDERED: INSULIN REGULAR (IV INFUSION) 100 UNITS in SODIUM CHLORIDE 0.9% INJ 99 ML IV SCH (15:30)
[2016-12-17 16:01] LABS: BICARBONATE 23.5 MEQ/L (21.0-32.0); POTASSIUM 4.2 MEQ/L (3.5-5.1)
--- NOTE | 2016-12-17 16:01 | ECHRPT ---
Indication: heart failure CONCLUSIONS The left ventricular systolic function is severely reduced with an estimated ejection fraction in th e range of 20-25%. There is global left ventricular dysfunction. Qecj-il-fjwklanw mitral valve regurgitation. There is mild tricuspid valve regurgitation. Mild pulmonary valve regurgitation. Bilateral pleural effusions noted. BP: 163 / 95 HR: 71 Rhythm: MEASUREMENTS (Male / Female) Normal Values Technical Quality:Good 2D ECHO LV Diastolic Diameter PLAX 4.5 cm 4.2 - 5.9 / 3.9 - 5.3 cm LV Systolic Diameter PLAX 4.2 cm IVS Diastolic Thickness 1.7 cm 0.6 - 1.0 / 0.6 - 0.9 cm LVPW Diastolic Thickness 0.9 cm 0.6 - 1.0 / 0.6 - 0.9 cm LV Relative Wall Thickness 0.6 RV Internal Dim ED PLAX 2.6 cm M-MODE Aortic Root Diameter MM 3.9 cm LA Systolic Diameter MM 3.7 cm LA Ao Ratio MM 0.9 AV Cusp Separation MM 2.2 cm DOPPLER Mitral E Point Velocity 49.9 cm/s Mitral A Point Velocity 74.0 cm/s Mitral E to A Ratio 0.7 LV E' Lateral Velocity 4.1 cm/s Mitral E to LV E' Lateral Ratio 12.2 LV E' Septal Velocity 7.4 cm/s Mitral E to LV E' Septal Ratio 6.7 TR Peak Velocity 251.0 cm/s TR Peak Gradient 25.2 mmHg Right Atrial Pressure 10.0 mmHg Pulmonary Artery Systolic Pressu 35.2 mmHg Right Ventricular Systolic Press 35.2 mmHg FINDINGS LEFT VENTRICLE Normal left ventricular size. Wall thickness is normal. The left ventricular systolic function is severely reduced with an estimated ejection fraction in th e range of 20-25%. There is global left ventricular dysfunction. There is assymetric septal hypertrophy. RIGHT VENTRICLE The right ventricle is mildly dilated. The right ventricular systoilc function is mildly decreased. LEFT ATRIUM The left atrial size is mildly dilated. RIGHT ATRIUM The right atrial size is mildly dilated. ATRIAL SEPTUM Normal atrial septal thickness without atrial level shunting by limited color doppler interrogation. AORTA The aortic root and proximal ascending aorta are normal in size on limited imaging. MITRAL VALVE Structurally normal mitral valve. Ezxg-ar-wkhjhdzh mitral valve regurgitation. No mitral valve stenosis. AORTIC VALVE Aortic valve sclerosis is present. No aortic valve regurgitation. No aortic valve stenosis. TRICUSPID VALVE Structurally normal tricuspid valve. There is mild tricuspid valve regurgitation. The estimated pulmonary arterial pressure is 35.2 mmHg. PULMONARY VALVE The pulmonary valve is not well visualized. Mild pulmonary valve regurgitation. VESSELS The inferior vena cava is normal in size. PERICARDIUM No pericardial effusion. Bilateral pleural effusions noted. Sher Ramos DO (Electronically Signed) Final Date:17 December 2016 16:01 Amended: 17 December 2016 16:22
--- NOTE | 2016-12-17 17:30 | RADRPT ---
EXAM DATE/TIME: 12/17/2016 16:41 [facility] COMPARISON: No previous studies available for comparison. INDICATIONS : Increased lab values. MEDICAL HISTORY : Hypothyroidism. Hypercholesterolemia. Chronic obstructive pulmonary disease. CVA. MO. Hypertension. A nemia. CAD. GERD. Arthritis. Cirrhosis. Measles. Lung cancer. Psoriasis. SURGICAL HISTORY : Coronary artery stent. CABG. Hysterectomy. Cardiac cath. ENCOUNTER: Initial ACUITY: 1 day PAIN SCORE: 2/10 LOCATION: Bilateral upper quadrant MEASUREMENTS: LIVER: 18.0 cm length COMMON DUCT: 4 mm RIGHT KIDNEY: 11.1 x 4.1 x 4.9 cm SPLEEN: 9.4 cm length FINDINGS: LIVER: Homogeneous echotexture without focal lesion or ductal dilatation. Hepatopedal flow seen the portal vein. COMMON DUCT: No intraluminal mass or stone visualized. GALLBLADDER: No shadowing stone seen. There is mild gallbladder wall thickening measuring up to 9 mm. Questionab le pericholecystic fluid with a thin hypoechoic area in the interspace between the fundus of the gall bladder and liver. PANCREAS: The visualized portions are within normal limits. RIGHT KIDNEY: No hydronephrosis, stone or mass. SPLEEN: No focal lesion. CONCLUSION: 1. Gall bladder wall thickening and possible pericholecystic fluid. No shadowing stones. 2. Hepatomegaly without focal lesion. 3. Moderate size right pleural effusion. 4. May consider performing hepatobiliary tract scan to further characterize no gallbladder wall thick ening. Tristin Tobin MD on December 17, 2016 at 17:18 Board Certified Radiologist. This report was verified electronically.
--- NOTE | 2016-12-17 20:26 | RADRPT ---
EXAM DATE/TIME: 12/17/2016 20:09 [facility] COMPARISON: CT BRAIN W/O CONTRAST, August 17, 2012, 19:29. INDICATIONS : Altered mental status. RADIATION DOSE: 31.89 CTDIvol (mGy) MEDICAL HISTORY : Cardiovascular disease. Chronic obstructive pulmonary disease. Hypertension.Lung cancer. Asthma. Diab etes. SURGICAL HISTORY : Hysterectomy. ENCOUNTER: Initial ACUITY: 1 day PAIN SCALE: Non-responsive LOCATION: cranial TECHNIQUE: Multiple contiguous axial images were obtained of the head. Using automated exposure control and adj ustment of the mA and/or kV according to patient size, radiation dose was kept as low as reasonably a chievable to obtain optimal diagnostic quality images. DICOM format image data is available electro nically for review and comparison. FINDINGS: There is a stable small area of encephalomalacia in the right frontal subcortical white matter. No ev idence of intracranial mass or hemorrhage. Nothing to suggest acute infarction. The extracranial stru ctures are stable, benign and intact. CONCLUSION: No acute intracranial findings Phil Back MD on December 17, 2016 at 20:21 Board Certified Radiologist. This report was verified electronically.
[2016-12-17] MEDS: LACTULOSE SYRUP 20 GM/30 ML CUP PO SCH (22:34)
[2016-12-18] VITALS (13 sets, daily range): BP systolic 97–141; BP diastolic 57–79; PULSE 65–75; RESP 9–26; TEMP 97.7–98.5; O2SAT 97–100
[2016-12-18] MEDS: AZITHROMYCIN INJ 500 MG in SODIUM CHLOR 0.9% 250 ML INJ 250 ML IV SCH (00:41)
[2016-12-18] MEDS: AZTREONAM INJ 2,000 MG in SODIUM CHLORIDE 0.9% INJ 100 ML IV SCH ×4 (02:32→21:41)
[2016-12-18] MEDS: RESP: ALBUTEROL 2.5 MG/IPRATROPIUM 0.5 MG NEB (SCH) NEB ×6 (03:07→23:20)
[2016-12-18] MEDS: CHLORHEXIDINE GLUCONATE 2 % 1 PACK (2 CLOTHS) TOP SCH (04:00)
[2016-12-18 04:37] LABS: AUTOMATED NEUTROPHIL # 4.5 TH/MM3 (1.8-7.7); BASOPHIL % 0.2 % (0.0-2.0); HEMATOCRIT 24.9 % (35.0-46.0); LYMPH % 13.4 % (9.0-44.0); LYMPHOCYTE # 0.8 TH/MM3 (1.0-4.8); MEAN CELL VOLUME 90.4 FL (80.0-100.0); MEAN CORPUSCULAR HEMOGLOBIN 31.5 PG (27.0-34.0); MEAN CORPUSCULAR HGB CONC 34.9 % (32.0-36.0); MONO % 11.9 % (0.0-8.0); NEUT % 74.5 % (16.0-70.0); PLATELET COUNT 36 TH/MM3 (150-450); RED BLOOD COUNT 2.76 MIL/MM3 (4.00-5.30); RED CELL DISTRIBUTION WIDTH 17.2 % (11.6-17.2)
[2016-12-18 04:41] LABS: HEMO FLAGS AUTO DIFF
[2016-12-18] MEDS: LEVOTHYROXINE SODIUM 112 MCG TAB PO SCH (04:47)
[2016-12-18 05:21] LABS: ALKALINE PHOSPHATASE 234 U/L (45-117); ALT (GPT) 2535 U/L (10-53); ANION GAP 8 MEQ/L (5-15); AST (GOT) 1300 U/L (15-37); BANDS 14 % (0-6); BICARBONATE 27.7 MEQ/L (21.0-32.0); BLOOD UREA NITROGEN 65 MG/DL (7-18); CHLORIDE 105 MEQ/L (98-107); CORRECTED NUCLEATED RBC 9 /100 WBC (0-0); GLOMERULAR FILTRATION RATE 55 ML/MIN (>89); METAMYELOCYTES 8 % (0-1); NEUTROPHIL # MANUAL DIFF 5.2 TH/MM3 (1.8-7.7); PLATELET ESTIMATE SMEAR LOW (NORMAL); PLATELET MORPHOLOGY NORMAL (NORMAL); POLYS (SEG NEUTROPHILS) 64 % (16-70); SCAN/DIFF FINAL DIFF MANUAL; SODIUM (NA) 141 MEQ/L (136-145); TOTAL BILIRUBIN ADULT 1.4 MG/DL (0.2-1.0); WBC DIFF SAMPLE 100
--- NOTE | 2016-12-18 07:14 | MB ---
cc: LORETA PAGAN M.D. DATE OF CONSULTATION 12/17/2016 REASON FOR CONSULTATION Consult requested by beater head for evaluation of lung cancer and anemia. HISTORY OF PRESENT ILLNESS Cari is a 71-year-old female. She was diagnosed with non-small cell lung cancer, adenocarcinoma in May of this year. She underwent resection of the left upper lower lobe. The pathology report showed moderately differentiated adenocarcinoma at 2.4 cm with the visceral pleural invasion. The N1 lymph nodes were negative; however, the N2 lymph nodes were positive 03/05. She was found to have a Stage III [id number] lung cancer. She was started on adjuvant carboplatin and Gemzar chemotherapy on September 21. Last chemotherapy was 3 weeks ago. The patient came into the emergency room complaining of severe shortness of breath. She was found to have severe anemia and congestive heart failure and hepatic congestion. She is under the care of an beater head. I have been asked to see her for further evaluation. The patient is lethargic. She has been complaining of shortness of breath. She stated that she cannot breathe. She has been diuresis. Cardiology has been consulted. Law Writer is also managing her. The patient is unable to discuss further regarding her history and review of system as she is falling asleep and she is lethargic. PAST MEDICAL HISTORY 1. Non-small cell lung cancer diagnosed in June of this year. She is currently on adjuvant chemotherapy, carboplatin and Gemzar. 2. Asthma. 3. COPD. 4. Congestive heart failure. 5. Diabetes mellitus. 6. Coronary artery disease status post OR. 7. Hypercholesteremia. 8. Hypothyroidism. 9. Multiple sclerosis. 10. History of stroke. PAST SURGICAL HISTORY 1. Cataract. 2. coronary artery bypass surgery. 3. Hysterectomy. 4. Colonoscopy. ALLERGIES ASPIRIN. BIOTIN. LIPITOR. ONDANSETRON. PENICILLIN. SENNA. SULFADIAZINE. MEDICATIONS 1. Advair. 2. Glimepiride. 3. Levothyroxine. 4. Metoprolol. 5. Omeprazole. 6. Simvastatin. FAMILY HISTORY Noncontributory. SOCIAL HISTORY The patient does not smoke cigarettes, does not drink alcohol. PHYSICAL EXAMINATION GENERAL: This is a well-developed, well-nourished, ill-appearing white female who is in respiratory distress. VITAL SIGNS: Temperature 98.7, heart rate 77, blood pressure is 138/80, O2 saturation 100%. HEENT: PERRLA, EOMI, anicteric. No oral lesions noted. NECK: No lymphadenopathy noted. LUNGS: Bilateral crackles noted. HEART: Irregularly irregular. ABDOMEN: Soft. EXTREMITIES: Pedal edema noted. NEUROLOGY: The patient is lethargic but arousable. SKIN: No significant lesions noted. ASSESSMENT 1. Congestive heart failure. 2. 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 3. Severe anemia and thrombocytopenia due to the chemotherapy. 4. Non-small cell lung cancer status post surgery, Stage III, currently receiving chemotherapy. PLAN I have reviewed her available records and I have discussed with the patient and the beater head regarding her clinical situation. When she came in her hemoglobin 6.1 and her platelet count was 41. She had received 2 units of blood transfusion and hemoglobin has improved to 9.9 today. The platelet count is going down to 31,000. The patient has thrombocytopenia and anemia due to the recent chemotherapy. Her liver enzymes are very high. Her BNP is also very high. She has congestive heart failure. Most likely this is right-sided heart failure which is causing liver enzymes to be quite high. Cardiology has been consulted. At this point my recommendation is observation and give her blood product support. Further recommendations based on the hospital stay. Thank you for asking my opinion. MD KESHA Sol/SSB /6:27 PM /6:59 AM
[2016-12-18 07:51] LABS: CRITICAL VALUE YES
[2016-12-18] MEDS: SODIUM CHLORIDE 0.9% FLUSH 10 ML FLUSH IV FLUSH SCH ×2 (09:34→21:41)
[2016-12-18] MEDS: LACTULOSE SYRUP 20 GM/30 ML CUP PO SCH ×2 (09:35→21:42)
[2016-12-18] MEDS: PANTOPRAZOLE SODIUM 40 MG VIAL IV PUSH SCH ×2 (09:35→21:42)
[2016-12-18] MEDS: BUDESONIDE-FORMOTEROL 80/4.5 MCG INHALER INH SCH ×2 (09:35→21:41)
[2016-12-18] MEDS: TORSEMIDE 5 MG TAB PO SCH ×2 (09:36→16:56)
[2016-12-18] MEDS: METOPROLOL TARTRATE 50 MG TAB PO SCH ×2 (09:37→21:42)
[2016-12-18] MEDS: DOCUSATE SODIUM 50 MG/SENNA 8.6 MG TAB PO SCH ×2 (09:37→21:00)
--- NOTE | 2016-12-18 10:10 | HHI.PR ---
Subjective Remarks Patient states her breathing is better. She inquired about going home. Objective Vitals Vital Signs Date Time Temp Pulse Resp B/P (MAP) Pulse Ox O2 Delivery O2 Flow Rate FiO2 12/18/16 08:12 97 Nasal Cannula 2.00 12/18/16 06:00 68 12/18/16 06:00 68 13 125/58 (80) 100 12/18/16 05:00 66 15 127/68 (87) 100 12/18/16 04:00 69 12/18/16 04:00 97.9 69 9 130/70 (90) 100 12/18/16 03:00 65 15 114/57 (76) 100 12/18/16 02:00 71 19 97/57 (70) 100 12/18/16 02:00 71 12/18/16 01:00 74 26 131/74 (93) 100 12/18/16 00:00 74 12/18/16 00:00 97.7 74 18 141/79 (99) 100 12/17/16 23:00 72 24 124/69 (87) 100 12/17/16 22:00 74 12/17/16 22:00 74 12 144/83 (103) 100 12/17/16 21:00 73 14 151/77 (101) 100 12/17/16 20:00 98.2 79 23 146/79 (101) 100 12/17/16 20:00 72 12/17/16 19:40 100 Nasal Cannula 1.50 12/17/16 19:00 78 27 138/89 (105) 100 12/17/16 18:00 74 12/17/16 18:00 98.2 74 23 150/84 (106) 99 12/17/16 17:00 97.9 72 20 152/86 (108) 99 12/17/16 16:00 77 12/17/16 16:00 98.7 77 22 138/80 (99) 100 12/17/16 15:00 98.5 78 18 146/76 (99) 99 12/17/16 14:00 98.0 78 28 128/89 (102) 99 12/17/16 14:00 76 12/17/16 13:00 99.0 74 18 128/91 (103) 100 12/17/16 12:00 98.9 73 17 144/67 (92) 100 12/17/16 12:00 74 12/17/16 11:00 98.5 72 28 143/69 (93) 100 12/17/16 10:42 94 Nasal Cannula 2.00 I/O 12/17/16 12/17/16 12/17/16 12/18/16 12/18/16 12/18/16 07:00 15:00 23:00 07:00 15:00 23:00 Intake Total 1270 ml 500 ml 340 ml 375.6 ml Output Total 500 ml 1275 ml 1700 ml Balance 770 ml 500 ml -935 ml -1324.4 ml Intake Oral 150 ml 240 ml IV Total 450 ml 500 ml 100 ml 375.6 ml Packed Cells 650 ml Blood Product IV Normal Saline Flush 20 ml Output Urine Total 500 ml 1275 ml 1700 ml # Voids 3 # Bowel Movements 0 1 Result Diagram: 12/18/16 0334 12/18/16 0334 Imaging Last Impressions Liver Ultrasound 12/17/16 0000 Signed Impressions: Service Date/Time: Saturday, December 17, 2016 16:41 - CONCLUSION: 1. Gall bladder wall thickening and possible pericholecystic fluid. No shadowing stones. 2. Hepatomegaly without focal lesion. 3. Moderate size right pleural effusion. 4. May consider performing hepatobiliary tract scan to further characterize no gallbladder wall thickening. Tristin Tobin MD Head CT 12/17/16 0000 Signed Impressions: Service Date/Time: Saturday, December 17, 2016 20:09 - CONCLUSION: No acute intracranial findings Phil Back MD Chest X-Ray 12/16/16 1829 Signed Impressions: Service Date/Time: Friday, December 16, 2016 18:58 - CONCLUSION: 1. Previous partial left lung resection with elevated left hemidiaphragm. Mild basilar airspace disease similar to October 30. [id number] in superior vena cava. Postop CABG. Hans Manzanares MD Lung Scan Nuclear Medicine 12/16/16 0000 Signed Impressions: Service Date/Time: Friday, December 16, 2016 21:20 - CONCLUSION: 1. Low probability for pulmonary embolus. Hans Manzanares MD Objective Remarks GENERAL: Patient appear frail, in no apparent distress. CARDIOVASCULAR: Normal rate and regular rhythm without murmurs, gallops, or rubs. RESPIRATORY: Good respiratory efforts. Breath sounds equal and clear to auscultation bilaterally. GASTROINTESTINAL: Abdomen soft, non-tender, non-distended. Normal active bowel sounds MUSCULOSKELETAL: Extremities without cyanosis, or edema. NEURO: Alert & Oriented x4 to person, place, time, situation. Moves all ext x4 PSYCH: Appropriate mood and affect. A/P Assessment and Plan 71-year-old female with history of lung cancer undergoing chemotherapy presents with respiratory failure, acute exacerbation of CHF secondary to worsening anemia. Acute exacerbation of systolic CHF secondary to anemia: LVEF of 20% - Continue torsemide, metoprolol. too early to determine if BP can tolerate volodymyr inhibitors - Strict I/O - Cardiology following. Continue medical management Acute respiratory failure: Secondary to above. Markedly improved. - Continue supplemental oxygen as needed. Breathing treatments as needed. Severe anemia: Likely secondary to chemotherapy. No signs of active bleeding. - Status post 2 units of PRBC transfusions. H&H stable today. -Continue to trend. Markedly elevated LFTs: Could be shock liver from CHF, possible drug-induced. - GI following. Hepatitis workup ongoing. - LFTs trending down quickly. Continue to monitor. Diabetes mellitus: - Sliding scale insulin with Accu-Cheks. CAD - s/p CABG. cardiology following. Patient has allergy to aspirin. Cardiology would eventually like her to being on Plavix but unable to do that secondary to low platelets. Anemia and thrombocytopenia: Monitor CBC s/p transfusion 2units PRBC transfusion Onc is following- Dr. Neville- s/p chemo 3 weeks ago. GI prophylaxis- On Prootnix 40mg BID DVT prophylaxis- Patient's INR 1.9. Discharge Planning OK to transfer to [facility]. Delmar Orellana MD Dec 18, 2016 10:10
[2016-12-18] MEDS ORDERED: GLUCAGON 1 MG/ML VIAL OTHER PRN (10:30)
[2016-12-18] MEDS ORDERED: DEXTROSE 50% IN WATER 50 ML VIAL(D50) IV PUSH PRN (10:30)
[2016-12-18] MEDS ORDERED: POTASSIUM CHLOR 20 MEQ PREMIX 100 ML IV SCH (11:00)
[2016-12-18] MEDS ORDERED: POTASSIUM CHLORIDE 20 MEQ CONTROLLED RELEASE TAB PO ONE (12:15)
[2016-12-18] MEDS: INSULIN ASPART SUPPLEMENTAL SCALE SQ SCH ×3 (12:41→21:00)
--- NOTE | 2016-12-18 13:18 | PD.ONC.PN ---
Subjective Subjective Remarks Afebrile overnight. Patient resting in room with sisters. No complaints. Feeling good. Objective Data Date Time Temp Pulse Resp B/P (MAP) Pulse Ox O2 Delivery O2 Flow Rate FiO2 12/18/16 08:12 97 Nasal Cannula 2.00 12/18/16 06:00 68 12/18/16 06:00 68 13 125/58 (80) 100 12/18/16 05:00 66 15 127/68 (87) 100 12/18/16 04:00 69 12/18/16 04:00 97.9 69 9 130/70 (90) 100 12/18/16 03:00 65 15 114/57 (76) 100 12/18/16 02:00 71 19 97/57 (70) 100 12/18/16 02:00 71 12/18/16 01:00 74 26 131/74 (93) 100 12/18/16 00:00 74 12/18/16 00:00 97.7 74 18 141/79 (99) 100 12/17/16 23:00 72 24 124/69 (87) 100 12/17/16 22:00 74 12/17/16 22:00 74 12 144/83 (103) 100 12/17/16 21:00 73 14 151/77 (101) 100 12/17/16 20:00 98.2 79 23 146/79 (101) 100 12/17/16 20:00 72 12/17/16 19:40 100 Nasal Cannula 1.50 12/17/16 19:00 78 27 138/89 (105) 100 12/17/16 18:00 74 12/17/16 18:00 98.2 74 23 150/84 (106) 99 12/17/16 17:00 97.9 72 20 152/86 (108) 99 12/17/16 16:00 77 12/17/16 16:00 98.7 77 22 138/80 (99) 100 12/17/16 15:00 98.5 78 18 146/76 (99) 99 12/17/16 14:00 98.0 78 28 128/89 (102) 99 12/17/16 14:00 76 12/18/16 12/18/16 12/18/16 07:00 15:00 23:00 Intake Total 375.6 ml Output Total 1700 ml Balance -1324.4 ml Result Diagram: 12/18/16 0334 12/18/16 0334 Laboratory Results Laboratory Tests Test 12/17/16 14:09 12/17/16 15:20 12/18/16 03:34 Prothrombin Time 21.5 SEC Prothromb Time International Ratio 1.9 RATIO Fibrinogen 219 mg/dL Blood Urea Nitrogen 65 MG/DL 65 MG/DL Creatinine 1.29 MG/DL 1.00 MG/DL Random Glucose 344 MG/DL 97 MG/DL Calcium Level 8.4 MG/DL 8.1 MG/DL Sodium Level 137 MEQ/L 141 MEQ/L Potassium Level 4.2 MEQ/L 3.0 MEQ/L Chloride Level 102 MEQ/L 105 MEQ/L Carbon Dioxide Level 23.5 MEQ/L 27.7 MEQ/L Anion Gap 12 MEQ/L 8 MEQ/L Estimat Glomerular Filtration Rate 41 ML/MIN 55 ML/MIN Iron Level 270 MCG/DL Total Iron Binding Capacity 249 MCG/DL Percent Iron Saturation % Ferritin 44157 NG/ML Tumor Marker Alpha Fetoprotein 2.2 NG/ML Ammonia 53 MCMOL/L White Blood Count 6.0 TH/MM3 Red Blood Count 2.76 MIL/MM3 Hemoglobin 8.7 GM/DL Hematocrit 24.9 % Mean Corpuscular Volume 90.4 FL Mean Corpuscular Hemoglobin 31.5 PG Mean Corpuscular Hemoglobin Concent 34.9 % Red Cell Distribution Width 17.2 % Platelet Count 36 TH/MM3 Mean Platelet Volume 9.6 FL Neutrophils (%) (Auto) 74.5 % Lymphocytes (%) (Auto) 13.4 % Monocytes (%) (Auto) 11.9 % Eosinophils (%) (Auto) 0.0 % Basophils (%) (Auto) 0.2 % Neutrophils # (Auto) 4.5 TH/MM3 Lymphocytes # (Auto) 0.8 TH/MM3 Monocytes # (Auto) 0.7 TH/MM3 Eosinophils # (Auto) 0.0 TH/MM3 Basophils # (Auto) 0.0 TH/MM3 CBC Comment AUTO DIFF Differential Total Cells Counted 100 Neutrophils % (Manual) 64 % Band Neutrophils % 14 % Lymphocytes % 5 % Monocytes % 9 % Neutrophils # (Manual) 5.2 TH/MM3 Metamyelocytes 8 % Nucleated Red Blood Cells 9 /100 WBC Differential Comment FINAL DIFF MANUAL Platelet Estimate LOW Platelet Morphology Comment NORMAL Total Protein 6.6 GM/DL Albumin 2.6 GM/DL Alkaline Phosphatase 234 U/L Aspartate Amino Transf (AST/SGOT) 1300 U/L Alanine Aminotransferase (ALT/SGPT) 2535 U/L Total Bilirubin 1.4 MG/DL Culture Results Microbiology Date/Time Source Procedure Growth Status 12/16/16 18:50 Blood Peripheral Aerobic Blood Culture - Preliminary NO GROWTH IN 2 DAYS Resulted 12/16/16 18:50 Blood Peripheral Anaerobic Blood Culture - Preliminary NO GROWTH IN 2 DAYS Resulted 12/16/16 18:40 Blood Peripheral Aerobic Blood Culture - Preliminary NO GROWTH IN 2 DAYS Resulted 12/16/16 18:40 Blood Peripheral Anaerobic Blood Culture - Preliminary NO GROWTH IN 2 DAYS Resulted 12/17/16 00:20 Urine Catheterized Urine Legionella Antigen - Final PRESUMPTIVE NEGATIVE FOR LEGIONELLA P... Complete 12/17/16 00:20 Urine Catheterized Urine Streptococcus pneumoniae Antigen (M - Final PRESUMPTIVE NEGATIVE FOR STREPTOCOCCU... Complete 12/17/16 00:20 Urine Random Urine Urine Culture Pending Received Administered Medications Medications (Trade) Dose Ordered Sig/Hiral Route PRN Reason Start Time Stop Time Status Last Admin Dose Admin Albuterol Sulfate (Proair Hfa Inh) 1 puff Q4H PRN INH SHORTNESS OF BREATH 12/16/16 21:00 12/17/16 08:27 Levothyroxine Sodium (Synthroid) 112 mcg DAILY@0600 PO 12/17/16 06:00 12/18/16 04:47 Metoprolol Tartrate (Lopressor) 50 mg BID PO 12/16/16 21:00 12/18/16 09:37 Torsemide (Demadex) 10 mg BID@18 PO 12/17/16 09:00 12/18/16 09:36 Budesonide/ Formoterol Fumarate (Symbicort 80-4.5 Mcg Inh) 2 puff BID INH 12/16/16 21:15 12/18/16 09:35 Sodium Chloride (NS Flush) 2 ml BID IV FLUSH 12/16/16 21:00 12/18/16 09:34 Morphine Sulfate (Morphine Inj) 2 mg Q2H PRN IV PUSH PAIN SCALE 6 TO 10 12/16/16 21:00 12/17/16 00:11 Pantoprazole Sodium (Protonix Inj) 40 mg BID IV PUSH 12/16/16 21:00 12/18/16 09:35 Miscellaneous Information 1 Q361D XX 12/16/16 21:00 12/16/16 22:15 Chlorhexidine Gluconate (Chlorhexidine 2% Cloth) 3 pack Taper DAILY@04 TOP 12/17/16 04:00 12/13/17 03:59 12/18/16 04:00 Senna/Docusate Sodium (Antoinette-Colace) 1 tab BID PO 12/16/16 21:00 12/18/16 09:37 Azithromycin 500 mg/Sodium Chloride 250 ml @ 250 mls/hr Q24H IV 12/17/16 02:00 12/18/16 00:41 Aztreonam 2000 mg/ Sodium Chloride 100 ml @ 200 mls/hr Q6H IV 12/17/16 03:00 12/18/16 09:34 Albuterol/ Ipratropium (Duoneb Neb) 1 ampule Q4HR NEB NEB 12/17/16 12:00 12/18/16 12:13 Lactulose (Lactulose Liq) 15 ml BID PO 12/17/16 21:00 12/18/16 09:35 Insulin Aspart (NovoLOG SUPPLEMENTAL SCALE) 1 ACHS SLIDING SCALE SQ 12/18/16 12:00 12/18/16 12:41 Objective Remarks GENERAL: Chronically ill appearing female upright in chart next to bed in nad. SKIN: Warm and dry. HEAD: Normocephalic. EYES: No injection or drainage. NECK: Supple, trachea midline. CARDIOVASCULAR: Regular rate and rhythm RESPIRATORY: diminished at bases, anterior de león with occasional rhonchi. On 2L O2 via NC GASTROINTESTINAL: Abdomen soft, non-tender, nondistended. EXTREMITIES: No cyanosis NEUROLOGICAL: awake and alert, normal speech. Assessment/Plan Problem List: (1) Anemia due to chemotherapy ICD Codes: D64.81 - Anemia due to antineoplastic chemotherapy; T45.1X5A - Adverse effect of antineoplastic and immunosuppressive drugs, initial encounter Plan: 12/18: monitor and transfuse as needed. --Severe anemia and thrombocytopenia due to recent chemotherapy. --monitor and transfuse as needed. (2) Congestive heart failure ICD Codes: I50.9 - Heart failure, unspecified Plan: --cardiology following and managing (3) Hepatic congestion ICD Codes: K76.1 - Chronic passive congestion of liver Plan: --Liver failure due to congestive heart failure, right-sided. (4) Lung cancer ICD Codes: C34.90 - Malignant neoplasm of unspecified part of unspecified bronchus or lung Status: Acute Plan: no treatment while inpatient --diagnosed with non-small cell lung cancer, adenocarcinoma in May of this year. --underwent resection of the left upper lower lobe. --pathology report showed moderately differentiated adenocarcinoma at 2.4 cm with the visceral pleural invasion. N1 lymph nodes were negative; N2 lymph nodes were positive 03/05. --had a Stage III [id number] lung cancer. --was started on adjuvant carboplatin and Gemzar chemotherapy on September 21. --Last chemotherapy was 3 weeks ago. (5) thrombocytopenia due to chemotherapy Plan: --monitor and transfuse as needed Assessment 71y/o female admitted with dyspnea, CHF, hepatic congestion. Oncology consulted for lung cancer and anemia. h/o Non-small cell lung cancer diagnosed in June of this year. currently on adjuvant chemotherapy, carboplatin and Gemzar. Asthma. COPD. Congestive heart failure. Diabetes mellitus. Coronary artery disease status post MA. Hypercholesteremia. Hypothyroidism. Multiple sclerosis. History of stroke. Attending Statement The exam, history, and the medical decision-making described in the above note were completed with the assistance of the mid-level provider. I reviewed and agree with the findings presented. I attest that I had a [id number] encounter with the patient on the same day, and personally performed and documented my assessment and findings in the medical record. SOB has improved Anemia and low platelets due to chemotherapy No bleeding H and H improved after Blood transfusion Iris Maddox Dec 18, 2016 13:18 Jose Neville MD Dec 19, 2016 06:38
--- NOTE | 2016-12-18 16:46 | HHI.GIFU ---
Subjective Remarks Pt has elevated ammonia level will need lactulose. Hb dropped to 6 and received 2 units, now Hb 9. May have been error. Will need stool hemoccult. LFTs are improving. US shows GB thickened but may be due to liver disease. Hepatitis profile is neg for A, B, C Objective Vitals I&O Vital Signs Date Time Temp Pulse Resp B/P (MAP) Pulse Ox O2 Delivery O2 Flow Rate FiO2 12/18/16 08:12 97 Nasal Cannula 2.00 12/18/16 06:00 68 12/18/16 06:00 68 13 125/58 (80) 100 12/18/16 05:00 66 15 127/68 (87) 100 12/18/16 04:00 69 12/18/16 04:00 97.9 69 9 130/70 (90) 100 12/18/16 03:00 65 15 114/57 (76) 100 12/18/16 02:00 71 19 97/57 (70) 100 12/18/16 02:00 71 12/18/16 01:00 74 26 131/74 (93) 100 12/18/16 00:00 74 12/18/16 00:00 97.7 74 18 141/79 (99) 100 12/17/16 23:00 72 24 124/69 (87) 100 12/17/16 22:00 74 12/17/16 22:00 74 12 144/83 (103) 100 12/17/16 21:00 73 14 151/77 (101) 100 12/17/16 20:00 98.2 79 23 146/79 (101) 100 12/17/16 20:00 72 12/17/16 19:40 100 Nasal Cannula 1.50 12/17/16 19:00 78 27 138/89 (105) 100 12/17/16 18:00 74 12/17/16 18:00 98.2 74 23 150/84 (106) 99 12/17/16 17:00 97.9 72 20 152/86 (108) 99 I/O 12/17/16 12/17/16 12/17/16 12/18/16 12/18/16 12/18/16 07:00 15:00 23:00 07:00 15:00 23:00 Intake Total 1270 ml 500 ml 340 ml 375.6 ml 100 ml Output Total 500 ml 1275 ml 1700 ml Balance 770 ml 500 ml -935 ml -1324.4 ml 100 ml Intake Oral 150 ml 240 ml IV Total 450 ml 500 ml 100 ml 375.6 ml 100 ml Packed Cells 650 ml Blood Product IV Normal Saline Flush 20 ml Output Urine Total 500 ml 1275 ml 1700 ml # Voids 3 # Bowel Movements 0 1 Laboratory Laboratory Tests Test 12/18/16 03:34 White Blood Count 6.0 Red Blood Count 2.76 Hemoglobin 8.7 Hematocrit 24.9 Mean Corpuscular Volume 90.4 Mean Corpuscular Hemoglobin 31.5 Mean Corpuscular Hemoglobin Concent 34.9 Red Cell Distribution Width 17.2 Platelet Count 36 Mean Platelet Volume 9.6 Neutrophils (%) (Auto) 74.5 Lymphocytes (%) (Auto) 13.4 Monocytes (%) (Auto) 11.9 Eosinophils (%) (Auto) 0.0 Basophils (%) (Auto) 0.2 Neutrophils # (Auto) 4.5 Lymphocytes # (Auto) 0.8 Monocytes # (Auto) 0.7 Eosinophils # (Auto) 0.0 Basophils # (Auto) 0.0 CBC Comment AUTO DIFF Differential Total Cells Counted 100 Neutrophils % (Manual) 64 Band Neutrophils % 14 Lymphocytes % 5 Monocytes % 9 Neutrophils # (Manual) 5.2 Metamyelocytes 8 Nucleated Red Blood Cells 9 Differential Comment FINAL DIFF MANUAL Platelet Estimate LOW Platelet Morphology Comment NORMAL Blood Urea Nitrogen 65 Creatinine 1.00 Random Glucose 97 Total Protein 6.6 Albumin 2.6 Calcium Level 8.1 Alkaline Phosphatase 234 Aspartate Amino Transf (AST/SGOT) 1300 Alanine Aminotransferase (ALT/SGPT) 2535 Total Bilirubin 1.4 Sodium Level 141 Potassium Level 3.0 Chloride Level 105 Carbon Dioxide Level 27.7 Anion Gap 8 Estimat Glomerular Filtration Rate 55 Date/Time Source Procedure Growth Status 12/16/16 18:50 Blood Peripheral Aerobic Blood Culture - Preliminary NO GROWTH IN 2 DAYS Resulted 12/16/16 18:50 Blood Peripheral Anaerobic Blood Culture - Preliminary NO GROWTH IN 2 DAYS Resulted 12/17/16 00:20 Urine Catheterized Urine Legionella Antigen - Final PRESUMPTIVE NEGATIVE FOR LEGIONELLA P... Complete 12/17/16 00:20 Urine Catheterized Urine Streptococcus pneumoniae Antigen (M - Final PRESUMPTIVE NEGATIVE FOR STREPTOCOCCU... Complete Physical Exam HEENT: Pupils round and reactive to light; normocephalic; atraumatic; no jaundice. Throat is clear. NECK: Neck is supple, no JVD, no lymphadenopathy. CHEST: Chest is clear to auscultation and percussion. CARDIAC: Regular rate and rhythm with no murmur gallop or rubs. ABDOMEN: Soft, nondistended, nontender; no hepatosplenomegaly; bowel sounds are present in all four quadrants. EXTREMITIES: No clubbing, cyanosis, or edema. SKIN: Normal; no rash; no jaundice. 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 Assessment and Plan Plan ASSESSMENT: - Acute hepatitis, unclear etiology. No prior hx of liver problems and does not drink ETOH. She was recently diagnosed with Stage III lung cancer and was started on Carboplatin and Gemzar at the end of August and gets this q3 weeks and last had about 3 weeks ago. Home meds reviewed. She denies any nausea, vomiting, abdominal pain. She does have CHF. No documented hypotensive episodes. LFTs with T. Bili 1.4, AST 4819, ALT 3329, ALk Phosph 273. Hepatitis profile is negative. US is negative. Unclear etiology at this time, ? drug induced, congestive hepatopathy, Rest of liver workup is pending. - Severe anemia. HH 6.1/18.0. Of note, she last had chemotherapy 3weeks ago. No obvious blood loss. Responded appropriately to transfusion. S/P 2 units PRBC. HH 9.9/28.7. - Coagulopathy. INR 2.2, not on blood thinners. - Resp. 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 Nebs, diuretics , Azactam, Azithromycin, - CHF. Diuretics, - Stage III non-small cell lung cancer in May of 2016. She underwent left upper lobectomy with Dr. Villarreal and was then started on carboplatin and Gemzar chemotherapy in August. She receives this every three weeks and is followed by Dr. Neville. - CKD with electrolyte abnormalities. Creat. 1.08. - DM, HTN, Hypothyroidism, CAD, Hyperlipidemia per attending. - Hepatic encephalopathy. PLAN: - Lactulose 30cc daily. - clear liquids. - Await hepatitis panel - RUQ US - ISABEL, ASMA, AMA - Ferritin, Iron saturation - Ceruloplasmin, Alpha 1 Antitrypsin - Monitor LFTs - Avoid hepatotoxic meds - Supportive care - Further recommendations to follow based on results of above Shalom Francois MD Dec 18, 2016 16:46
[2016-12-18 17:23] LABS: APTT (PATIENT) 24.7 SEC (24.3-30.1); INTERNATIONAL NORMALIZED RATIO 1.5 RATIO; PROTHROMBIN TIME - PATIENT 17.4 SEC (9.8-11.6)
--- NOTE | 2016-12-18 18:20 | PD.CARD.PN ---
Subjective Subjective Remarks Patient seen this morning No chest pain SOB better Objective Medications Current Medications Medications (Trade) Dose Ordered Sig/Hiral Route Start Time Stop Time Status Last Admin (Proair Hfa Inh) 1 puff Q4H PRN INH 12/16/16 21:00 12/17/16 08:27 (Synthroid) 112 mcg DAILY@0600 PO 12/17/16 06:00 12/18/16 04:47 (Lopressor) 50 mg BID PO 12/16/16 21:00 12/18/16 09:37 (Demadex) 10 mg BID@,18 PO 12/17/16 09:00 12/18/16 16:56 (Symbicort 80-4.5 Mcg Inh) 2 puff BID INH 12/16/16 21:15 12/18/16 09:35 (NS Flush) 2 ml UNSCH PRN IV FLUSH 12/16/16 21:00 (NS Flush) 2 ml BID IV FLUSH 12/16/16 21:00 12/18/16 09:34 (Tylenol) 650 mg Q6H PRN PO 12/16/16 21:00 (Morphine Inj) 2 mg Q2H PRN IV PUSH 12/16/16 21:00 12/17/16 00:11 (Protonix Inj) 40 mg BID IV PUSH 12/16/16 21:00 12/18/16 09:35 (Zofran Inj) 4 mg Q6H PRN IV PUSH 12/16/16 21:00 (Ambien) 5 mg HS PRN PO 12/16/16 21:00 Miscellaneous Information 1 Q361D XX 12/16/16 21:00 12/16/16 22:15 (Chlorhexidine 2% Cloth) 3 pack Taper DAILY@04 TOP 12/17/16 04:00 12/13/17 03:59 12/18/16 04:00 (Chlorhexidine 2% Cloth) 3 pack UNSCH PRN TOP 12/16/16 21:00 (Antoinette-Colace) 1 tab BID PO 12/16/16 21:00 12/18/16 09:37 (Milk Of Magnesia Liq) 30 ml Q12H PRN PO 12/16/16 21:00 (Senokot) 17.2 mg Q12H PRN PO 12/16/16 21:00 (Dulcolax Supp) 10 mg DAILY PRN RECTAL 12/16/16 21:00 (Lactulose Liq) 30 ml DAILY PRN PO 12/16/16 21:00 Azithromycin 500 mg/Sodium Chloride 250 ml @ 250 mls/hr Q24H IV 12/17/16 02:00 12/18/16 00:41 Aztreonam 2000 mg/ Sodium Chloride 100 ml @ 200 mls/hr Q6H IV 12/17/16 03:00 12/18/16 14:43 (Duoneb Neb) 1 ampule Q4HR NEB NEB 12/17/16 12:00 12/18/16 16:28 (Duoneb Neb) 1 ampule Q2HR NEB PRN NEB 12/17/16 09:45 (Lactulose Liq) 15 ml BID PO 12/17/16 21:00 12/18/16 09:35 (D50w (Vial) Inj) 50 ml UNSCH PRN IV PUSH 12/18/16 10:30 (Glucagon Inj) 1 mg UNSCH PRN OTHER 12/18/16 10:30 (NovoLOG SUPPLEMENTAL SCALE) 1 ACHS SLIDING SCALE SQ 12/18/16 12:00 12/18/16 16:55 Vital Signs / I&O Vital Signs Date Time Temp Pulse Resp B/P (MAP) Pulse Ox O2 Delivery O2 Flow Rate FiO2 12/18/16 08:12 97 Nasal Cannula 2.00 12/18/16 06:00 68 12/18/16 06:00 68 13 125/58 (80) 100 12/18/16 05:00 66 15 127/68 (87) 100 12/18/16 04:00 69 12/18/16 04:00 97.9 69 9 130/70 (90) 100 12/18/16 03:00 65 15 114/57 (76) 100 12/18/16 02:00 71 19 97/57 (70) 100 12/18/16 02:00 71 12/18/16 01:00 74 26 131/74 (93) 100 12/18/16 00:00 74 12/18/16 00:00 97.7 74 18 141/79 (99) 100 12/17/16 23:00 72 24 124/69 (87) 100 12/17/16 22:00 74 12/17/16 22:00 74 12 144/83 (103) 100 12/17/16 21:00 73 14 151/77 (101) 100 12/17/16 20:00 98.2 79 23 146/79 (101) 100 12/17/16 20:00 72 12/17/16 19:40 100 Nasal Cannula 1.50 12/17/16 19:00 78 27 138/89 (105) 100 I/O 12/17/16 12/17/16 12/17/16 12/18/16 12/18/16 12/18/16 07:00 15:00 23:00 07:00 15:00 23:00 Intake Total 1270 ml 500 ml 340 ml 375.6 ml 100 ml Output Total 500 ml 1275 ml 1700 ml Balance 770 ml 500 ml -935 ml -1324.4 ml 100 ml Intake Oral 150 ml 240 ml IV Total 450 ml 500 ml 100 ml 375.6 ml 100 ml Packed Cells 650 ml Blood Product IV Normal Saline Flush 20 ml Output Urine Total 500 ml 1275 ml 1700 ml # Voids 3 # Bowel Movements 0 1 Physical Exam GENERAL: NAD, AAOx3 SKIN: Warm and dry. HEAD: Atraumatic. Normocephalic. EYES: Pupils equal and round. No scleral icterus. No injection or drainage. ENT: No nasal bleeding or discharge. Mucous membranes pink and moist. NECK: Trachea midline. No JVD. CARDIOVASCULAR: Regular rate and rhythm. RESPIRATORY: No accessory muscle use. Decreased breath sounds bilaterally GASTROINTESTINAL: Abdomen soft, non-tender, nondistended. Hepatic and splenic margins not palpable. MUSCULOSKELETAL: Extremities without clubbing, cyanosis, or edema. No obvious deformities. NEUROLOGICAL: Awake and alert. No obvious cranial nerve deficits. Motor grossly within normal limits. Five out of 5 muscle strength in the arms and legs. Normal speech. PSYCHIATRIC: Appropriate mood and affect; insight and judgment normal. Laboratory Laboratory Tests Test 12/18/16 03:34 12/18/16 14:45 White Blood Count 6.0 TH/MM3 Red Blood Count 2.76 MIL/MM3 Hemoglobin 8.7 GM/DL Hematocrit 24.9 % Mean Corpuscular Volume 90.4 FL Mean Corpuscular Hemoglobin 31.5 PG Mean Corpuscular Hemoglobin Concent 34.9 % Red Cell Distribution Width 17.2 % Platelet Count 36 TH/MM3 Mean Platelet Volume 9.6 FL Neutrophils (%) (Auto) 74.5 % Lymphocytes (%) (Auto) 13.4 % Monocytes (%) (Auto) 11.9 % Eosinophils (%) (Auto) 0.0 % Basophils (%) (Auto) 0.2 % Neutrophils # (Auto) 4.5 TH/MM3 Lymphocytes # (Auto) 0.8 TH/MM3 Monocytes # (Auto) 0.7 TH/MM3 Eosinophils # (Auto) 0.0 TH/MM3 Basophils # (Auto) 0.0 TH/MM3 CBC Comment AUTO DIFF Differential Total Cells Counted 100 Neutrophils % (Manual) 64 % Band Neutrophils % 14 % Lymphocytes % 5 % Monocytes % 9 % Neutrophils # (Manual) 5.2 TH/MM3 Metamyelocytes 8 % Nucleated Red Blood Cells 9 /100 WBC Differential Comment FINAL DIFF MANUAL Platelet Estimate LOW Platelet Morphology Comment NORMAL Blood Urea Nitrogen 65 MG/DL Creatinine 1.00 MG/DL Random Glucose 97 MG/DL Total Protein 6.6 GM/DL Albumin 2.6 GM/DL Calcium Level 8.1 MG/DL Alkaline Phosphatase 234 U/L Aspartate Amino Transf (AST/SGOT) 1300 U/L Alanine Aminotransferase (ALT/SGPT) 2535 U/L Total Bilirubin 1.4 MG/DL Sodium Level 141 MEQ/L Potassium Level 3.0 MEQ/L Chloride Level 105 MEQ/L Carbon Dioxide Level 27.7 MEQ/L Anion Gap 8 MEQ/L Estimat Glomerular Filtration Rate 55 ML/MIN Prothrombin Time 17.4 SEC Prothromb Time International Ratio 1.5 RATIO Activated Partial Thromboplast Time 24.7 SEC Fibrinogen 166 mg/dL Assessment and Plan Problem List: (1) Congestive heart failure ICD Codes: I50.9 - Heart failure, unspecified (2) Anemia due to chemotherapy ICD Codes: D64.81 - Anemia due to antineoplastic chemotherapy; T45.1X5A - Adverse effect of antineoplastic and immunosuppressive drugs, initial encounter (3) thrombocytopenia due to chemotherapy (4) Lung cancer ICD Codes: C34.90 - Malignant neoplasm of unspecified part of unspecified bronchus or lung Status: Acute (5) Hepatic congestion ICD Codes: K76.1 - Chronic passive congestion of liver (6) Symptomatic anemia ICD Codes: D64.9 - Anemia, unspecified Status: Acute (7) Elevated troponin ICD Codes: R74.8 - Abnormal levels of other serum enzymes Status: Acute (8) Hypoxia ICD Codes: R09.02 - Hypoxemia Status: Acute Assessment and Plan 1) Acute systolic heart failure Con't diuresis 2) EF 20-25% Con't BB Will plan to add LUIS CARLOS-I 3) Elevated troponin Unable to undergo cardiac catheterization Con't medical management 4) Hepatic congestion 5) Lung cancer Sher Ramos DO Dec 18, 2016 18:20
[2016-12-19] VITALS (8 sets, daily range): BP systolic 92–130; BP diastolic 54–62; PULSE 64–70; RESP 14–28; TEMP 97.8–98; O2SAT 96–100
[2016-12-19] MEDS: AZITHROMYCIN INJ 500 MG in SODIUM CHLOR 0.9% 250 ML INJ 250 ML IV SCH (02:00)
[2016-12-19] MEDS: RESP: ALBUTEROL 2.5 MG/IPRATROPIUM 0.5 MG NEB (SCH) NEB ×5 (03:03→19:55)
[2016-12-19] MEDS: CHLORHEXIDINE GLUCONATE 2 % 1 PACK (2 CLOTHS) TOP SCH (03:26)
[2016-12-19] MEDS: LEVOTHYROXINE SODIUM 112 MCG TAB PO SCH (04:13)
[2016-12-19] MEDS: AZTREONAM INJ 2,000 MG in SODIUM CHLORIDE 0.9% INJ 100 ML IV SCH ×4 (04:13→22:00)
[2016-12-19] MEDS: ZOLPIDEM TARTRATE 5 MG TAB PO PRN ×2 (04:13→21:49)
[2016-12-19 05:49] LABS: HEMATOCRIT 24.3 % (35.0-46.0); MEAN CELL VOLUME 91.4 FL (80.0-100.0); MEAN CORPUSCULAR HEMOGLOBIN 31.8 PG (27.0-34.0); MEAN CORPUSCULAR HGB CONC 34.8 % (32.0-36.0); PLATELET COUNT 46 TH/MM3 (150-450); RED BLOOD COUNT 2.65 MIL/MM3 (4.00-5.30); RED CELL DISTRIBUTION WIDTH 17.2 % (11.6-17.2); WHITE BLOOD COUNT 7.1 TH/MM3 (4.0-11.0)
[2016-12-19 05:59] LABS: APTT (PATIENT) 24.8 SEC (24.3-30.1); INTERNATIONAL NORMALIZED RATIO 1.5 RATIO; PROTHROMBIN TIME - PATIENT 16.3 SEC (9.8-11.6)
[2016-12-19 06:08] LABS: REVIEW FLAG FINAL
[2016-12-19 06:35] LABS: BICARBONATE 29.6 MEQ/L (21.0-32.0); INDIRECT BILIRUBIN 0.4 MG/DL (0.0-0.8); TOTAL BILIRUBIN ADULT 0.8 MG/DL (0.2-1.0)
[2016-12-19 07:05] LABS: POTASSIUM 2.8 MEQ/L (3.5-5.1)
[2016-12-19] MEDS: INSULIN ASPART SUPPLEMENTAL SCALE SQ SCH ×4 (08:00→21:00)
[2016-12-19] MEDS ORDERED: POTASSIUM CHLORIDE 20 MEQ CONTROLLED RELEASE TAB PO ONE (08:30)
--- NOTE | 2016-12-19 08:39 | HHI.PR ---
Subjective Remarks Pt seen around 8 am this morning. Pt states that she feels better this morning, SOB is improving. When I saw her she wasn't wearing her oxygen mask. No Chest pains, nausea or vomiting. Discussed w RN, potassium is low at 2.8 Objective Vitals Vital Signs Date Time Temp Pulse Resp B/P (MAP) Pulse Ox O2 Delivery O2 Flow Rate FiO2 12/19/16 07:43 98 12/19/16 04:00 66 12/19/16 04:00 98.0 66 14 92/54 (67) 98 12/19/16 00:00 70 12/19/16 00:00 97.9 70 28 113/59 (77) 98 12/18/16 20:00 97.9 67 16 136/70 (92) 100 12/18/16 20:00 67 12/18/16 19:56 98 21 12/18/16 16:00 98.5 70 16 135/64 (87) 97 12/18/16 16:00 72 12/18/16 12:00 98.0 74 18 134/75 (94) 100 12/18/16 12:00 75 I/O 12/18/16 12/18/16 12/18/16 12/19/16 12/19/16 12/19/16 07:00 15:00 23:00 07:00 15:00 23:00 Intake Total 375.6 ml 100 ml 830 ml Output Total 1700 ml 1800 ml 1225 ml Balance -1324.4 ml 100 ml -1800 ml -395 ml Intake Oral 480 ml IV Total 375.6 ml 100 ml 350 ml Output Urine Total 1700 ml 1800 ml 1225 ml Result Diagram: 12/19/16 0418 12/19/16 0418 Imaging Last Impressions Liver Ultrasound 12/17/16 0000 Signed Impressions: Service Date/Time: Saturday, December 17, 2016 16:41 - CONCLUSION: 1. Gall bladder wall thickening and possible pericholecystic fluid. No shadowing stones. 2. Hepatomegaly without focal lesion. 3. Moderate size right pleural effusion. 4. May consider performing hepatobiliary tract scan to further characterize no gallbladder wall thickening. Tristin Tobin MD Head CT 12/17/16 0000 Signed Impressions: Service Date/Time: Saturday, December 17, 2016 20:09 - CONCLUSION: No acute intracranial findings Phil Back MD Chest X-Ray 12/16/16 1829 Signed Impressions: Service Date/Time: Friday, December 16, 2016 18:58 - CONCLUSION: 1. Previous partial left lung resection with elevated left hemidiaphragm. Mild basilar airspace disease similar to October 30. [id number] in superior vena cava. Postop CABG. Hans Manzanares MD Lung Scan Nuclear Medicine 12/16/16 0000 Signed Impressions: Service Date/Time: Friday, December 16, 2016 21:20 - CONCLUSION: 1. Low probability for pulmonary embolus. Hans Manzanares MD Objective Remarks GENERAL: Patient appear frail, in no apparent distress. CARDIOVASCULAR: Normal rate and regular rhythm without murmurs RESPIRATORY: Good respiratory efforts. no wheezing auscultated GASTROINTESTINAL: Abdomen soft, non-tender, non-distended. Normal active bowel sounds MUSCULOSKELETAL: Extremities without cyanosis, or edema. NEURO: Alert & Oriented. Moves all ext x4 PSYCH: pleasant A/P Assessment and Plan 71-year-old female with history of lung cancer undergoing chemotherapy presents with respiratory failure, acute exacerbation of CHF secondary to worsening anemia. Acute exacerbation of systolic CHF secondary to anemia: LVEF of 20% - Continue torsemide, metoprolol. BP's in the low normals, cannot yet start volodymry inhibitor. Per cards, cannot undergo cardiac cath for elevated trops. - Strict I/O - Cardiology following. Continue medical management Acute respiratory failure: Secondary to above. Markedly improved. - Continue supplemental oxygen as needed. Breathing treatments as needed. Severe anemia: Likely secondary to chemotherapy. No signs of active bleeding. - Status post 2 units of PRBC transfusions. H&H stable at 8.5 -Continue to trend. Markedly elevated LFTs: Could be shock liver from CHF vs possible drug-induced. - GI following. Hepatitis workup ongoing. hepatitis panel neg. - LFTs trending down quickly. Continue to monitor. hypokalemia: K 2.8 today. give 40meq KCL IV now and 40meq po now. check magnesium level and replace as needed. Diabetes mellitus: - Sliding scale insulin with Accu-Cheks. CAD - s/p CABG. cardiology following. Patient has allergy to aspirin. Cardiology would eventually like her to being on Plavix but unable to do that secondary to low platelets. Anemia and thrombocytopenia: Monitor CBC s/p transfusion 2units PRBC transfusion Onc is following- Dr. Neville- s/p chemo 3 weeks ago. GI prophylaxis- On Prootnix 40mg BID DVT prophylaxis- Patient's INR 1.5. Discharge Planning OK to transfer to [facility]. PT/OT following. Pt will require PT at rehab. Monitor Hb, LFTs and K levels. Beverly Kidd MD Dec 19, 2016 08:39
[2016-12-19] MEDS: DOCUSATE SODIUM 50 MG/SENNA 8.6 MG TAB PO SCH ×2 (09:00→21:50)
[2016-12-19] MEDS: LACTULOSE SYRUP 20 GM/30 ML CUP PO SCH ×2 (09:00→21:48)
[2016-12-19] MEDS: TORSEMIDE 5 MG TAB PO SCH ×2 (09:44→17:43)
[2016-12-19] MEDS: SODIUM CHLORIDE 0.9% FLUSH 10 ML FLUSH IV FLUSH SCH ×2 (09:45→21:49)
[2016-12-19] MEDS: METOPROLOL TARTRATE 50 MG TAB PO SCH ×2 (09:45→21:00)
[2016-12-19] MEDS: POTASSIUM CHLOR 20 MEQ PREMIX 100 ML IV SCH ×2 (09:45→12:05)
[2016-12-19] MEDS: PANTOPRAZOLE SODIUM 40 MG VIAL IV PUSH SCH ×2 (09:45→21:48)
[2016-12-19] MEDS: BUDESONIDE-FORMOTEROL 80/4.5 MCG INHALER INH SCH ×2 (11:00→21:51)
--- NOTE | 2016-12-19 14:58 | HHI.GIFU ---
Subjective Remarks Up in chair. States she is feeling much better. No n/v, denies pain. States she is getting stronger and anxious to return home. Objective Vitals I&O Vital Signs Date Time Temp Pulse Resp B/P (MAP) Pulse Ox O2 Delivery O2 Flow Rate FiO2 12/19/16 12:00 68 12/19/16 12:00 98.0 68 23 123/59 (80) 96 12/19/16 08:00 65 12/19/16 08:00 98.0 66 14 92/54 (67) 98 12/19/16 07:43 98 12/19/16 04:00 66 12/19/16 04:00 98.0 66 14 92/54 (67) 98 12/19/16 00:00 70 12/19/16 00:00 97.9 70 28 113/59 (77) 98 12/18/16 20:00 97.9 67 16 136/70 (92) 100 12/18/16 20:00 67 12/18/16 19:56 98 21 12/18/16 16:00 98.5 70 16 135/64 (87) 97 12/18/16 16:00 72 I/O 12/18/16 12/18/16 12/18/16 12/19/16 12/19/16 12/19/16 07:00 15:00 23:00 07:00 15:00 23:00 Intake Total 375.6 ml 100 ml 830 ml Output Total 1700 ml 1800 ml 1225 ml Balance -1324.4 ml 100 ml -1800 ml -395 ml Intake Oral 480 ml IV Total 375.6 ml 100 ml 350 ml Output Urine Total 1700 ml 1800 ml 1225 ml Laboratory Laboratory Tests Test 12/18/16 14:45 12/19/16 04:18 Prothrombin Time 17.4 16.3 Prothromb Time International Ratio 1.5 1.5 Activated Partial Thromboplast Time 24.7 24.8 Fibrinogen 166 144 White Blood Count 7.1 Red Blood Count 2.65 Hemoglobin 8.5 Hematocrit 24.3 Mean Corpuscular Volume 91.4 Mean Corpuscular Hemoglobin 31.8 Mean Corpuscular Hemoglobin Concent 34.8 Red Cell Distribution Width 17.2 Platelet Count 46 Mean Platelet Volume 9.5 Blood Urea Nitrogen 52 Creatinine 0.98 Random Glucose 167 Total Protein 6.1 Albumin 2.4 Calcium Level 8.3 Alkaline Phosphatase 183 Aspartate Amino Transf (AST/SGOT) 478 Alanine Aminotransferase (ALT/SGPT) 1629 Total Bilirubin 0.8 Direct Bilirubin 0.4 Sodium Level 140 Potassium Level 2.8 Chloride Level 102 Carbon Dioxide Level 29.6 Anion Gap 8 Estimat Glomerular Filtration Rate 56 Magnesium Level 1.3 Indirect Bilirubin 0.4 Date/Time Source Procedure Growth Status 12/16/16 18:50 Blood Peripheral Aerobic Blood Culture - Preliminary NO GROWTH IN 3 DAYS Resulted 12/16/16 18:50 Blood Peripheral Anaerobic Blood Culture - Preliminary NO GROWTH IN 3 DAYS Resulted 12/17/16 00:20 Urine Catheterized Urine Legionella Antigen - Final PRESUMPTIVE NEGATIVE FOR LEGIONELLA P... Complete 12/17/16 00:20 Urine Catheterized Urine Streptococcus pneumoniae Antigen (M - Final PRESUMPTIVE NEGATIVE FOR STREPTOCOCCU... Complete Imaging Last Impressions Liver Ultrasound 12/17/16 0000 Signed Impressions: Service Date/Time: Saturday, December 17, 2016 16:41 - CONCLUSION: 1. Gall bladder wall thickening and possible pericholecystic fluid. No shadowing stones. 2. Hepatomegaly without focal lesion. 3. Moderate size right pleural effusion. 4. May consider performing hepatobiliary tract scan to further characterize no gallbladder wall thickening. Tristin Tobin MD Head CT 12/17/16 0000 Signed Impressions: Service Date/Time: Saturday, December 17, 2016 20:09 - CONCLUSION: No acute intracranial findings Phil Back MD Chest X-Ray 12/16/16 182 Signed Impressions: Service Date/Time: Friday, December 16, 2016 18:58 - CONCLUSION: 1. Previous partial left lung resection with elevated left hemidiaphragm. Mild basilar airspace disease similar to October 30. Fuslet-[id number] in superior vena cava. Postop CABG. Hans Manzanares MD Lung Scan Nuclear Medicine 12/16/16 0000 Signed Impressions: Service Date/Time: Friday, December 16, 2016 21:20 - CONCLUSION: 1. Low probability for pulmonary embolus. Hans Manzanares MD Physical Exam HEENT: Normocephalic; atraumatic; no jaundice. CHEST: Resp. shallow, unlabored. Diminished CARDIAC: Regular rate and rhythm with no murmur gallop or rubs. ABDOMEN: Soft, nondistended, NONTENDER; no hepatosplenomegaly; bowel sounds are present in all four quadrants. EXTREMITIES: BLE edema. SKIN: Normal; no rash; no jaundice. DRAFTER DETAIL: Alert, oriented x 3. Assessment and Plan Plan ASSESSMENT: - Acute hepatitis, unclear etiology. No prior hx of liver problems and does not drink ETOH. She was recently diagnosed with Stage III lung cancer and was started on Carboplatin and Gemzar at the end of August and gets this q3 weeks and last had about 3 weeks ago. Home meds reviewed. She denies any nausea, vomiting, abdominal pain. She does have CHF. No documented hypotensive episodes. RUQ US (12/17/16)---> GB wall thickening and possible pericholecystic fluid. No shadowing stones. Hepatomegaly without focal lesion, moderate size right pleural effusion, may consider performing hepatobiliary tract scan to further characterize no gallbladder or wall thickening. Hepatitis profile is negative. ISABEL pending, AMA pending, ASMA negative, Ferritin 21,385, Iron Saturation > 100%. Alpha 1 Antitrypsin 226, Ceruloplasmin pending. AFP 2.2. LFT's improving, T. Bili 0.8, AST 478, ALT 1629, Alk Phosph 183. ? Drug induced vs. shocked liver vs. other. Will get Hfe gene for > 100% iron saturation and elevated ferritin to rule out hemochromatosis. - Severe anemia. HH 6.1/18.0 on admission. Of note, she last had chemotherapy 3weeks ago. No obvious blood loss. Responded appropriately to transfusion. S/P 2 units PRBC. Seems to be slowly trending down. 8.5/24.3. - GB wall thickening/pericholecystic fluid. Pt does not have any nausea/ vomiting. No RUQ tenderness. Likely related to her hepatitis, but if she becomes symptomatic, could consider HIDA scan. - Coagulopathy. Improved. INR 1.5. - Resp. 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 Nebs, diuretics , Azactam, Azithromycin, - CHF. Diuretics, - Stage III non-small cell lung cancer in May of 2016. She underwent left upper lobectomy with Dr. Villarreal and was then started on carboplatin and Gemzar chemotherapy in August. She receives this every three weeks and is followed by Dr. Neville. - CKD with electrolyte abnormalities. Improving. - DM, HTN, Hypothyroidism, CAD, Hyperlipidemia per attending. - Hepatic encephalopathy. Ammonia 53. Lactulose. PLAN: - Heart healthy diet - PPI - Hfe gene - Await ISABEL, ASMA, AMA - Await Ceruloplasmin, Alpha 1 Antitrypsin - Monitor LFTs - Avoid hepatotoxic meds - Supportive care - Further recommendations to follow based on results of above - Pt seen and examined by Dr. Francois and myself and this note is written on his behalf Sharlene Mathew Dec 19, 2016 14:58
--- NOTE | 2016-12-19 15:08 | PD.ONC.PN ---
Subjective Subjective Remarks Pt sitting up in chair at bedside Reports "I feel great, I just want to go home" No bleeding Objective Data Date Time Temp Pulse Resp B/P (MAP) Pulse Ox O2 Delivery O2 Flow Rate FiO2 12/19/16 12:00 68 12/19/16 12:00 98.0 68 23 123/59 (80) 96 12/19/16 08:00 65 12/19/16 08:00 98.0 66 14 92/54 (67) 98 12/19/16 07:43 98 12/19/16 04:00 66 12/19/16 04:00 98.0 66 14 92/54 (67) 98 12/19/16 00:00 70 12/19/16 00:00 97.9 70 28 113/59 (77) 98 12/18/16 20:00 97.9 67 16 136/70 (92) 100 12/18/16 20:00 67 12/18/16 19:56 98 21 12/18/16 16:00 98.5 70 16 135/64 (87) 97 12/18/16 16:00 72 12/19/16 12/19/16 12/19/16 07:00 15:00 23:00 Intake Total 830 ml Output Total 1225 ml Balance -395 ml Result Diagram: 12/19/16 0418 12/19/16 0418 Laboratory Results Laboratory Tests Test 12/19/16 04:18 White Blood Count 7.1 TH/MM3 Red Blood Count 2.65 MIL/MM3 Hemoglobin 8.5 GM/DL Hematocrit 24.3 % Mean Corpuscular Volume 91.4 FL Mean Corpuscular Hemoglobin 31.8 PG Mean Corpuscular Hemoglobin Concent 34.8 % Red Cell Distribution Width 17.2 % Platelet Count 46 TH/MM3 Mean Platelet Volume 9.5 FL Prothrombin Time 16.3 SEC Prothromb Time International Ratio 1.5 RATIO Activated Partial Thromboplast Time 24.8 SEC Fibrinogen 144 mg/dL Blood Urea Nitrogen 52 MG/DL Creatinine 0.98 MG/DL Random Glucose 167 MG/DL Total Protein 6.1 GM/DL Albumin 2.4 GM/DL Calcium Level 8.3 MG/DL Alkaline Phosphatase 183 U/L Aspartate Amino Transf (AST/SGOT) 478 U/L Alanine Aminotransferase (ALT/SGPT) 1629 U/L Total Bilirubin 0.8 MG/DL Direct Bilirubin 0.4 MG/DL Sodium Level 140 MEQ/L Potassium Level 2.8 MEQ/L Chloride Level 102 MEQ/L Carbon Dioxide Level 29.6 MEQ/L Anion Gap 8 MEQ/L Estimat Glomerular Filtration Rate 56 ML/MIN Magnesium Level 1.3 MG/DL Indirect Bilirubin 0.4 MG/DL Culture Results Microbiology Date/Time Source Procedure Growth Status 12/16/16 18:50 Blood Peripheral Aerobic Blood Culture - Preliminary NO GROWTH IN 3 DAYS Resulted 12/16/16 18:50 Blood Peripheral Anaerobic Blood Culture - Preliminary NO GROWTH IN 3 DAYS Resulted 12/16/16 18:40 Blood Peripheral Aerobic Blood Culture - Preliminary NO GROWTH IN 3 DAYS Resulted 12/16/16 18:40 Blood Peripheral Anaerobic Blood Culture - Preliminary NO GROWTH IN 3 DAYS Resulted 12/17/16 00:20 Urine Catheterized Urine Legionella Antigen - Final PRESUMPTIVE NEGATIVE FOR LEGIONELLA P... Complete 12/17/16 00:20 Urine Catheterized Urine Streptococcus pneumoniae Antigen (M - Final PRESUMPTIVE NEGATIVE FOR STREPTOCOCCU... Complete 12/17/16 00:20 Urine Random Urine Urine Culture - Final Klebsiella Pneumoniae Complete Administered Medications Medications (Trade) Dose Ordered Sig/Hiral Route PRN Reason Start Time Stop Time Status Last Admin Dose Admin Albuterol Sulfate (Proair Hfa Inh) 1 puff Q4H PRN INH SHORTNESS OF BREATH 12/16/16 21:00 12/17/16 08:27 Levothyroxine Sodium (Synthroid) 112 mcg DAILY@0600 PO 12/17/16 06:00 12/19/16 04:13 Metoprolol Tartrate (Lopressor) 50 mg BID PO 12/16/16 21:00 12/19/16 09:45 Torsemide (Demadex) 10 mg BID@18 PO 12/17/16 09:00 12/19/16 09:44 Budesonide/ Formoterol Fumarate (Symbicort 80-4.5 Mcg Inh) 2 puff BID INH 12/16/16 21:15 12/19/16 11:00 Sodium Chloride (NS Flush) 2 ml BID IV FLUSH 12/16/16 21:00 12/19/16 09:45 Morphine Sulfate (Morphine Inj) 2 mg Q2H PRN IV PUSH PAIN SCALE 6 TO 10 12/16/16 21:00 12/17/16 00:11 Pantoprazole Sodium (Protonix Inj) 40 mg BID IV PUSH 12/16/16 21:00 12/19/16 09:45 Zolpidem Tartrate (Ambien) 5 mg HS PRN PO INSOMNIA 12/16/16 21:00 12/19/16 04:13 Miscellaneous Information 1 Q361D XX 12/16/16 21:00 12/16/16 22:15 Chlorhexidine Gluconate (Chlorhexidine 2% Cloth) 3 pack Taper DAILY@04 TOP 12/17/16 04:00 12/13/17 03:59 12/19/16 03:26 Senna/Docusate Sodium (Antoinette-Colace) 1 tab BID PO 12/16/16 21:00 12/18/16 09:37 Azithromycin 500 mg/Sodium Chloride 250 ml @ 250 mls/hr Q24H IV 12/17/16 02:00 12/19/16 02:00 Aztreonam 2000 mg/ Sodium Chloride 100 ml @ 200 mls/hr Q6H IV 12/17/16 03:00 12/19/16 14:44 Albuterol/ Ipratropium (Duoneb Neb) 1 ampule Q4HR NEB NEB 12/17/16 12:00 12/19/16 14:55 Lactulose (Lactulose Liq) 15 ml BID PO 12/17/16 21:00 12/18/16 21:42 Insulin Aspart (NovoLOG SUPPLEMENTAL SCALE) 1 ACHS SLIDING SCALE SQ 12/18/16 12:00 12/19/16 12:00 Objective Remarks GENERAL: Chronically ill appearing female upright in chart next to bed in [facility]. SKIN: Warm and dry. HEAD: Normocephalic. EYES: No injection or drainage. NECK: Supple, trachea midline. CARDIOVASCULAR: Regular rate and rhythm RESPIRATORY: Largely clear posteriorly. Breathing unlabored. On RA. GASTROINTESTINAL: Abdomen soft, non-tender, nondistended. EXTREMITIES: No cyanosis NEUROLOGICAL: Awake and alert, normal speech. Assessment/Plan Problem List: (1) Anemia due to chemotherapy ICD Codes: D64.81 - Anemia due to antineoplastic chemotherapy; T45.1X5A - Adverse effect of antineoplastic and immunosuppressive drugs, initial encounter Plan: 12/19: Counts overall improved. Transfer to Hem/Onc floor. Monitor CBC. --Severe anemia and thrombocytopenia due to recent chemotherapy. --monitor and transfuse as needed. (2) Congestive heart failure ICD Codes: I50.9 - Heart failure, unspecified Plan: --cardiology following and managing (3) Hepatic congestion ICD Codes: K76.1 - Chronic passive congestion of liver Plan: --Liver failure due to congestive heart failure, right-sided. -- GI following (4) Lung cancer ICD Codes: C34.90 - Malignant neoplasm of unspecified part of unspecified bronchus or lung Status: Acute Plan: no treatment while inpatient --diagnosed with non-small cell lung cancer, adenocarcinoma in May of this year. --underwent resection of the left upper lower lobe. --pathology report showed moderately differentiated adenocarcinoma at 2.4 cm with the visceral pleural invasion. N1 lymph nodes were negative; N2 lymph nodes were positive 03/05. --had a Stage III [id number] lung cancer. --was started on adjuvant carboplatin and Gemzar chemotherapy on September 21. --Last chemotherapy was 3 weeks ago. (5) thrombocytopenia due to chemotherapy Plan: --monitor and transfuse as needed Assessment 71y/o female admitted with dyspnea, CHF, hepatic congestion. Oncology consulted for lung cancer and anemia. h/o Non-small cell lung cancer diagnosed in June of this year. currently on adjuvant chemotherapy, carboplatin and Gemzar. Asthma. COPD. Congestive heart failure. Diabetes mellitus. Coronary artery disease status post AL. Hypercholesteremia. Hypothyroidism. Multiple sclerosis. History of stroke. Attending Statement The exam, history, and the medical decision-making described in the above note were completed with the assistance of the mid-level provider. I reviewed and agree with the findings presented. I attest that I had a [id number] encounter with the patient on the same day, and personally performed and documented my assessment and findings in the medical record. No more SOB. Wants to go home ok to transfer to onc floor. d/w María Elena Tomas Dec 19, 2016 15:08 Jose Neville MD Dec 19, 2016 17:39
[2016-12-19] MEDS ORDERED: MAGNESIUM SULFATE 1 GM PREMIX 100 ML IV ONE (15:30)
--- NOTE | 2016-12-19 23:14 | PD.CARD.PN ---
Subjective Subjective Remarks Patient was seen earlier tonight No chest pain SOB better, on room air Objective Medications Current Medications Medications (Trade) Dose Ordered Sig/Hiral Route Start Time Stop Time Status Last Admin (Proair Hfa Inh) 1 puff Q4H PRN INH 12/16/16 21:00 12/17/16 08:27 (Synthroid) 112 mcg DAILY@0600 PO 12/17/16 06:00 12/19/16 04:13 (Lopressor) 50 mg BID PO 12/16/16 21:00 12/19/16 09:45 (Demadex) 10 mg BID@18 PO 12/17/16 09:00 12/19/16 17:43 (Symbicort 80-4.5 Mcg Inh) 2 puff BID INH 12/16/16 21:15 12/19/16 21:51 (NS Flush) 2 ml UNSCH PRN IV FLUSH 12/16/16 21:00 (NS Flush) 2 ml BID IV FLUSH 12/16/16 21:00 12/19/16 21:49 (Tylenol) 650 mg Q6H PRN PO 12/16/16 21:00 (Morphine Inj) 2 mg Q2H PRN IV PUSH 12/16/16 21:00 12/17/16 00:11 (Protonix Inj) 40 mg BID IV PUSH 12/16/16 21:00 12/19/16 21:48 (Zofran Inj) 4 mg Q6H PRN IV PUSH 12/16/16 21:00 (Ambien) 5 mg HS PRN PO 12/16/16 21:00 12/19/16 21:49 Miscellaneous Information 1 Q361D XX 12/16/16 21:00 12/16/16 22:15 (Chlorhexidine 2% Cloth) 3 pack Taper DAILY@04 TOP 12/17/16 04:00 12/13/17 03:59 12/19/16 03:26 (Chlorhexidine 2% Cloth) 3 pack UNSCH PRN TOP 12/16/16 21:00 (Antoinette-Colace) 1 tab BID PO 12/16/16 21:00 12/19/16 21:50 (Milk Of Magnesia Liq) 30 ml Q12H PRN PO 12/16/16 21:00 (Senokot) 17.2 mg Q12H PRN PO 12/16/16 21:00 (Dulcolax Supp) 10 mg DAILY PRN RECTAL 12/16/16 21:00 (Lactulose Liq) 30 ml DAILY PRN PO 12/16/16 21:00 Azithromycin 500 mg/Sodium Chloride 250 ml @ 250 mls/hr Q24H IV 12/17/16 02:00 12/19/16 02:00 Aztreonam 2000 mg/ Sodium Chloride 100 ml @ 200 mls/hr Q6H IV 12/17/16 03:00 12/19/16 22:00 (Duoneb Neb) 1 ampule Q4HR NEB NEB 12/17/16 12:00 12/19/16 19:55 (Duoneb Neb) 1 ampule Q2HR NEB PRN NEB 12/17/16 09:45 (Lactulose Liq) 15 ml BID PO 12/17/16 21:00 12/19/16 21:48 (D50w (Vial) Inj) 50 ml UNSCH PRN IV PUSH 12/18/16 10:30 (Glucagon Inj) 1 mg UNSCH PRN OTHER 12/18/16 10:30 (NovoLOG SUPPLEMENTAL SCALE) 1 ACHS SLIDING SCALE SQ 12/18/16 12:00 12/19/16 21:00 Vital Signs / I&O Vital Signs Date Time Temp Pulse Resp B/P (MAP) Pulse Ox O2 Delivery O2 Flow Rate FiO2 12/19/16 19:34 100 12/19/16 16:00 98.0 68 23 123/59 (80) 96 12/19/16 16:00 64 12/19/16 12:00 68 12/19/16 12:00 98.0 68 23 123/59 (80) 96 12/19/16 08:00 65 12/19/16 08:00 98.0 66 14 92/54 (67) 98 12/19/16 07:43 98 12/19/16 04:00 66 12/19/16 04:00 98.0 66 14 92/54 (67) 98 12/19/16 00:00 70 12/19/16 00:00 97.9 70 28 113/59 (77) 98 I/O 12/19/16 12/19/16 12/19/16 12/20/16 12/20/16 12/20/16 07:00 15:00 23:00 07:00 15:00 23:00 Intake Total 830 ml 200 ml 1160 ml Output Total 1225 ml 1875 ml Balance -395 ml 200 ml -715 ml Intake Oral 480 ml 960 ml IV Total 350 ml 200 ml 200 ml Output Urine Total 1225 ml 1875 ml # Bowel Movements 0 Physical Exam GENERAL: NAD, AAOx3 SKIN: Warm and dry. HEAD: Atraumatic. Normocephalic. EYES: Pupils equal and round. No scleral icterus. No injection or drainage. ENT: No nasal bleeding or discharge. Mucous membranes pink and moist. NECK: Trachea midline. No JVD. CARDIOVASCULAR: Regular rate and rhythm. RESPIRATORY: No accessory muscle use. Decreased breath sounds bilaterally, no rales noted GASTROINTESTINAL: Abdomen soft, non-tender, nondistended. Hepatic and splenic margins not palpable. MUSCULOSKELETAL: Extremities without clubbing, cyanosis, or edema. No obvious deformities. NEUROLOGICAL: Awake and alert. No obvious cranial nerve deficits. Motor grossly within normal limits. Five out of 5 muscle strength in the arms and legs. Normal speech. PSYCHIATRIC: Appropriate mood and affect; insight and judgment normal. Laboratory Laboratory Tests Test 12/19/16 04:18 12/19/16 18:28 White Blood Count 7.1 TH/MM3 Red Blood Count 2.65 MIL/MM3 Hemoglobin 8.5 GM/DL Hematocrit 24.3 % Mean Corpuscular Volume 91.4 FL Mean Corpuscular Hemoglobin 31.8 PG Mean Corpuscular Hemoglobin Concent 34.8 % Red Cell Distribution Width 17.2 % Platelet Count 46 TH/MM3 Mean Platelet Volume 9.5 FL Prothrombin Time 16.3 SEC Prothromb Time International Ratio 1.5 RATIO Activated Partial Thromboplast Time 24.8 SEC Fibrinogen 144 mg/dL Blood Urea Nitrogen 52 MG/DL Creatinine 0.98 MG/DL Random Glucose 167 MG/DL Total Protein 6.1 GM/DL Albumin 2.4 GM/DL Calcium Level 8.3 MG/DL Alkaline Phosphatase 183 U/L Aspartate Amino Transf (AST/SGOT) 478 U/L Alanine Aminotransferase (ALT/SGPT) 1629 U/L Total Bilirubin 0.8 MG/DL Direct Bilirubin 0.4 MG/DL Sodium Level 140 MEQ/L Potassium Level 2.8 MEQ/L Chloride Level 102 MEQ/L Carbon Dioxide Level 29.6 MEQ/L Anion Gap 8 MEQ/L Estimat Glomerular Filtration Rate 56 ML/MIN Magnesium Level 1.3 MG/DL Indirect Bilirubin 0.4 MG/DL Assessment and Plan Problem List: (1) Congestive heart failure ICD Codes: I50.9 - Heart failure, unspecified (2) Anemia due to chemotherapy ICD Codes: D64.81 - Anemia due to antineoplastic chemotherapy; T45.1X5A - Adverse effect of antineoplastic and immunosuppressive drugs, initial encounter (3) thrombocytopenia due to chemotherapy (4) Lung cancer ICD Codes: C34.90 - Malignant neoplasm of unspecified part of unspecified bronchus or lung Status: Acute (5) Hepatic congestion ICD Codes: K76.1 - Chronic passive congestion of liver (6) Symptomatic anemia ICD Codes: D64.9 - Anemia, unspecified Status: Acute (7) Elevated troponin ICD Codes: R74.8 - Abnormal levels of other serum enzymes Status: Acute (8) Hypoxia ICD Codes: R09.02 - Hypoxemia Status: Acute Assessment and Plan 1) Acute systolic heart failure Con't diuresis, appears relatively compensated 2) EF 20-25% Con't BB Will plan to add LUIS CARLOS-I if possible 3) Elevated troponin Unable to undergo cardiac catheterization due to thrombocytopenia Con't medical management 4) Hepatic congestion 5) Lung cancer Sher Ramos DO Dec 19, 2016 23:14
[2016-12-20] VITALS (9 sets, daily range): BP systolic 119–144; BP diastolic 54–64; PULSE 63–75; RESP 12–33; TEMP 96.8–98.2; O2SAT 98–100
[2016-12-20] MEDS: AZITHROMYCIN INJ 500 MG in SODIUM CHLOR 0.9% 250 ML INJ 250 ML IV SCH (02:00)
[2016-12-20] MEDS: RESP: ALBUTEROL 2.5 MG/IPRATROPIUM 0.5 MG NEB (SCH) NEB ×4 (03:42→12:01)
[2016-12-20] MEDS: CHLORHEXIDINE GLUCONATE 2 % 1 PACK (2 CLOTHS) TOP SCH (04:00)
[2016-12-20] MEDS: AZTREONAM INJ 2,000 MG in SODIUM CHLORIDE 0.9% INJ 100 ML IV SCH ×2 (06:15→08:02)
[2016-12-20] MEDS: LEVOTHYROXINE SODIUM 112 MCG TAB PO SCH (06:16)
[2016-12-20 07:12] LABS: AUTOMATED NEUTROPHIL # 4.2 TH/MM3 (1.8-7.7); BASOPHIL % 0.3 % (0.0-2.0); EOSINOPHIL % 0.1 % (0.0-4.0); LYMPH % 23.7 % (9.0-44.0); LYMPHOCYTE # 1.6 TH/MM3 (1.0-4.8); MEAN CELL VOLUME 91.7 FL (80.0-100.0); MEAN CORPUSCULAR HGB CONC 34.9 % (32.0-36.0); MONO % 11.5 % (0.0-8.0); NEUT % 64.4 % (16.0-70.0); PLATELET COUNT 60 TH/MM3 (150-450); RED BLOOD COUNT 2.95 MIL/MM3 (4.00-5.30); WHITE BLOOD COUNT 6.6 TH/MM3 (4.0-11.0)
[2016-12-20 07:21] LABS: HEMO FLAGS AUTO DIFF
[2016-12-20 07:31] LABS: BICARBONATE 29.9 MEQ/L (21.0-32.0); INDIRECT BILIRUBIN 0.5 MG/DL (0.0-0.8); MAGNESIUM 1.4 MG/DL (1.5-2.5); POTASSIUM 3.4 MEQ/L (3.5-5.1)
[2016-12-20] MEDS: INSULIN ASPART SUPPLEMENTAL SCALE SQ SCH ×2 (08:00→12:00)
[2016-12-20] MEDS ORDERED: POTASSIUM CHLORIDE 20 MEQ CONTROLLED RELEASE TAB PO ONE (08:00)
[2016-12-20] MEDS: DOCUSATE SODIUM 50 MG/SENNA 8.6 MG TAB PO SCH (08:01)
[2016-12-20] MEDS: LACTULOSE SYRUP 20 GM/30 ML CUP PO SCH (08:01)
[2016-12-20] MEDS: TORSEMIDE 5 MG TAB PO SCH (08:01)
[2016-12-20] MEDS: PANTOPRAZOLE SODIUM 40 MG VIAL IV PUSH SCH (08:02)
[2016-12-20] MEDS: SODIUM CHLORIDE 0.9% FLUSH 10 ML FLUSH IV FLUSH SCH (08:03)
[2016-12-20] MEDS: METOPROLOL TARTRATE 50 MG TAB PO SCH (08:08)
[2016-12-20] MEDS ORDERED: PILL SPLITTER OTHER PRN (08:15)
--- NOTE | 2016-12-20 08:18 | HHI.PR ---
Subjective Remarks Pt feeling a lot better. No SOB at this time, no CP, nausea or vomiting. Really would like to go home today. States she has two sisters that can help care for her Currently on RA. discussed w RN, low mag and low potassium. no other concerns Objective Vitals Vital Signs Date Time Temp Pulse Resp B/P (MAP) Pulse Ox O2 Delivery O2 Flow Rate FiO2 12/20/16 07:55 99 21 12/20/16 04:00 98.2 69 21 144/62 (89) 99 12/20/16 04:00 69 12/20/16 00:00 98.0 69 24 100 12/20/16 00:00 69 12/19/16 20:00 97.8 64 16 130/62 (84) 100 12/19/16 20:00 64 12/19/16 19:34 100 12/19/16 16:00 98.0 68 23 123/59 (80) 96 12/19/16 16:00 64 12/19/16 12:00 68 12/19/16 12:00 98.0 68 23 123/59 (80) 96 I/O 12/19/16 12/19/16 12/19/16 12/20/16 12/20/16 12/20/16 07:00 15:00 23:00 07:00 15:00 23:00 Intake Total 830 ml 200 ml 1160 ml 386 ml Output Total 1225 ml 1875 ml 1700 ml Balance -395 ml 200 ml -715 ml -1314 ml Intake Oral 480 ml 960 ml 120 ml IV Total 350 ml 200 ml 200 ml 266 ml Output Urine Total 1225 ml 1875 ml 1700 ml # Bowel Movements 0 0 Result Diagram: 12/20/16 0546 12/20/16 0546 Imaging Last Impressions Liver Ultrasound 12/17/16 0000 Signed Impressions: Service Date/Time: Saturday, December 17, 2016 16:41 - CONCLUSION: 1. Gall bladder wall thickening and possible pericholecystic fluid. No shadowing stones. 2. Hepatomegaly without focal lesion. 3. Moderate size right pleural effusion. 4. May consider performing hepatobiliary tract scan to further characterize no gallbladder wall thickening. Tristin Tobin MD Head CT 12/17/16 0000 Signed Impressions: Service Date/Time: Saturday, December 17, 2016 20:09 - CONCLUSION: No acute intracranial findings Phil Back MD Chest X-Ray 12/16/16 1829 Signed Impressions: Service Date/Time: Friday, December 16, 2016 18:58 - CONCLUSION: 1. Previous partial left lung resection with elevated left hemidiaphragm. Mild basilar airspace disease similar to October 30. Hpwwwn-[id number] in superior vena cava. Postop CABG. Hans Manzanares MD Lung Scan Nuclear Medicine 12/16/16 0000 Signed Impressions: Service Date/Time: Friday, December 16, 2016 21:20 - CONCLUSION: 1. Low probability for pulmonary embolus. Hans Manzanares MD Objective Remarks GENERAL: Patient appear frail, but appears comfortable. CARDIOVASCULAR: Normal rate and regular rhythm without murmurs RESPIRATORY: Good respiratory efforts. no wheezing auscultated GASTROINTESTINAL: Abdomen soft, non-tender, non-distended. Normal active bowel sounds MUSCULOSKELETAL: Extremities without edema. NEURO: Alert & Oriented. Moves all ext x4 PSYCH: pleasant A/P Assessment and Plan 71-year-old female with history of lung cancer undergoing chemotherapy presents with respiratory failure, acute exacerbation of CHF secondary to worsening anemia. Acute exacerbation of systolic CHF secondary to anemia: LVEF of 20% - Continue torsemide, metoprolol. I have added lisinopril 5mg po daily as BPs have improved. Per cards, cannot undergo cardiac cath for elevated trops. - Strict I/O - Cardiology following. Continue medical management Acute respiratory failure: Secondary to above. Markedly improved. - on RA. will get walk test and assess if home oxygen is needed. Breathing treatments as needed. Severe anemia: Likely secondary to chemotherapy. No signs of active bleeding. - Status post 2 units of PRBC transfusions. H&H stable at 9.4 -Continue to trend. I have discussed w heme/onc and pt can be discharged from their standpoint. - onc will monitor CBC as an outpatient. -F/U w Dr. Neville in 1 week- s/p chemo 3 weeks ago. Markedly elevated LFTs: Could be shock liver from CHF vs possible drug-induced. - GI following. Hepatitis workup ongoing. hepatitis panel neg. - LFTs trending down. Continue to monitor. hypokalemia: K 3.4 today. give 40meq po now. replace mag w 1 g mag sulfate IVx1 Diabetes mellitus: - Sliding scale insulin with Accu-Cheks. CAD - s/p CABG. cardiology following. Patient has allergy to aspirin. Cardiology would eventually like her to being on Plavix but unable to do that secondary to low platelets. GI prophylaxis- On Prootnix 40mg BID DVT prophylaxis- none due to anemia requiring transfusion. Patient's INR 1.5. Discharge Planning anticipate d/c later today. PT/OT following, awaiting final recs. awaiting final recs from cards and GI walk test. Beverly Kidd MD Dec 20, 2016 08:18
[2016-12-20] MEDS ORDERED: LISINOPRIL 5 MG TAB PO SCH (09:00)
[2016-12-20] MEDS ORDERED: MAGNESIUM SULFATE 1 GM PREMIX 100 ML IV ONE (09:00)
[2016-12-20 09:50] LABS: BANDS 18 % (0-6); CORRECTED NUCLEATED RBC 2 /100 WBC (0-0); METAMYELOCYTES 2 % (0-1); MYELOCYTES 2 % (0-0); NEUTROPHIL # MANUAL DIFF 5.1 TH/MM3 (1.8-7.7); POLYS (SEG NEUTROPHILS) 56 % (16-70); WBC DIFF SAMPLE 100
[2016-12-20 09:51] LABS: OVALOCYTES 1+ (NORMAL); PLATELET ESTIMATE SMEAR LOW (NORMAL); PLATELET MORPHOLOGY NORMAL (NORMAL); SCAN/DIFF FINAL DIFF MANUAL
[2016-12-20] MEDS ORDERED: IPRASOL NEB (11:47)
[2016-12-20] MEDS ORDERED: LISI-519 PO (11:47)
[2016-12-20] MEDS ORDERED: TORS5TAB2 PO (11:49)
[2016-12-20] MEDS ORDERED: AZIT500T2 PO (11:49)
[2016-12-20] MEDS ORDERED: METO50TA PO (11:49)
[2016-12-20] MEDS ORDERED: CIPR-9 PO (11:52)
--- NOTE | 2016-12-20 11:58 | HHI.DS ---
Discharge Summary Admission Date Dec 16, 2016 at 20:34 Discharge Date: Dec 20, 2016 Admitting Diagnosis symptomatic anemia, acute liver failure, kidney injury, hyperkalemia (1) Liver failure, acute ICD Code: K72.00 - Acute and subacute hepatic failure without coma Status: Acute (2) Congestive heart failure ICD Code: I50.9 - Heart failure, unspecified (3) Pancytopenia ICD Code: D61.818 - Other pancytopenia (4) Symptomatic anemia ICD Code: D64.9 - Anemia, unspecified Status: Acute (5) Lung cancer ICD Code: C34.90 - Malignant neoplasm of unspecified part of unspecified bronchus or lung Status: Acute Procedures none Brief History - From Admission 71-year-old female that presents for evaluation of chest pain and shortness of breath. Per patient she's had this on and off since been on a bus trip to [place]. Her shortness of breath has progressively gotten worse. She has a history of lung cancer, ACS, quadruple bypass as well as diabetes and high blood pressure and high cholesterol. She receives chemotherapy every 3 weeks. She last had it 3 weeks ago. She doesn't use oxygen at home. Patient was found to be profoundly hypoxic in the 80s and was put on oxygen with breathing treatments with some improvement. She states that the pain feels like a pressure. She does have a history of CHF as well. She denies any significant swelling. She denies any headache. Does not take any blood thinners. CBC/BMP: 12/20/16 0546 12/20/16 0546 Significant Findings Laboratory Tests Test 12/17/16 12:30 12/17/16 14:09 12/17/16 15:20 12/18/16 03:34 Prothrombin Time 21.5 SEC (9.8-11.6) Fibrinogen 219 mg/dL (227-377) Blood Urea Nitrogen 65 MG/DL (7-18) 65 MG/DL (7-18) Creatinine 1.29 MG/DL (0.50-1.00) Random Glucose 344 MG/DL (74-106) Calcium Level 8.4 MG/DL (8.5-10.1) 8.1 MG/DL (8.5-10.1) Estimat Glomerular Filtration Rate 41 ML/MIN (>89) 55 ML/MIN (>89) Iron Level 270 MCG/DL (50-170) Total Iron Binding Capacity 249 MCG/DL (250-450) Ferritin 32013 NG/ML (8-252) [id number] 226 mg/dL (100 - 190) Ammonia 53 MCMOL/L (11-32) Red Blood Count 2.76 MIL/MM3 (4.00-5.30) Hemoglobin 8.7 GM/DL (11.6-15.3) Hematocrit 24.9 % (35.0-46.0) Platelet Count 36 TH/MM3 (150-450) Neutrophils (%) (Auto) 74.5 % (16.0-70.0) Monocytes (%) (Auto) 11.9 % (0.0-8.0) Lymphocytes # (Auto) 0.8 TH/MM3 (1.0-4.8) Band Neutrophils % 14 % (0-6) Lymphocytes % 5 % (9-44) Monocytes % 9 % (0-8) Metamyelocytes 8 % (0-1) Nucleated Red Blood Cells 9 /100 WBC (0-0) Platelet Estimate LOW (NORMAL) Albumin 2.6 GM/DL (3.4-5.0) Alkaline Phosphatase 234 U/L (45-117) Aspartate Amino Transf (AST/SGOT) 1300 U/L (15-37) Alanine Aminotransferase (ALT/SGPT) 2535 U/L (10-53) Total Bilirubin 1.4 MG/DL (0.2-1.0) Potassium Level 3.0 MEQ/L (3.5-5.1) Test 12/18/16 14:45 12/19/16 04:18 12/19/16 18:28 12/20/16 05:46 Prothrombin Time 17.4 SEC (9.8-11.6) 16.3 SEC (9.8-11.6) Fibrinogen 166 mg/dL (227-377) 144 mg/dL (227-377) Red Blood Count 2.65 MIL/MM3 (4.00-5.30) 2.95 MIL/MM3 (4.00-5.30) Hemoglobin 8.5 GM/DL (11.6-15.3) 9.4 GM/DL (11.6-15.3) Hematocrit 24.3 % (35.0-46.0) 27.0 % (35.0-46.0) Platelet Count 46 TH/MM3 (150-450) 60 TH/MM3 (150-450) Blood Urea Nitrogen 52 MG/DL (7-18) 39 MG/DL (7-18) Random Glucose 167 MG/DL (74-106) 136 MG/DL (74-106) Total Protein 6.1 GM/DL (6.4-8.2) Albumin 2.4 GM/DL (3.4-5.0) 2.6 GM/DL (3.4-5.0) Calcium Level 8.3 MG/DL (8.5-10.1) 8.3 MG/DL (8.5-10.1) Alkaline Phosphatase 183 U/L (45-117) 214 U/L (45-117) Aspartate Amino Transf (AST/SGOT) 478 U/L (15-37) 222 U/L (15-37) Alanine Aminotransferase (ALT/SGPT) 1629 U/L (10-53) 1253 U/L (10-53) Direct Bilirubin 0.4 MG/DL (0.0-0.2) 0.5 MG/DL (0.0-0.2) Potassium Level 2.8 MEQ/L (3.5-5.1) 3.4 MEQ/L (3.5-5.1) Estimat Glomerular Filtration Rate 56 ML/MIN (>89) 71 ML/MIN (>89) Magnesium Level 1.3 MG/DL (1.5-2.5) 1.4 MG/DL (1.5-2.5) Red Cell Distribution Width 18.0 % (11.6-17.2) Monocytes (%) (Auto) 11.5 % (0.0-8.0) Band Neutrophils % 18 % (0-6) Monocytes % 11 % (0-8) Metamyelocytes 2 % (0-1) Myelocytes 2 % (0-0) Nucleated Red Blood Cells 2 /100 WBC (0-0) Platelet Estimate LOW (NORMAL) Ovalocytes 1+ (NORMAL) Imaging Last Impressions Liver Ultrasound 12/17/16 0000 Signed Impressions: Service Date/Time: Saturday, December 17, 2016 16:41 - CONCLUSION: 1. Gall bladder wall thickening and possible pericholecystic fluid. No shadowing stones. 2. Hepatomegaly without focal lesion. 3. Moderate size right pleural effusion. 4. May consider performing hepatobiliary tract scan to further characterize no gallbladder wall thickening. Tristin Tobin MD Head CT 12/17/16 0000 Signed Impressions: Service Date/Time: Saturday, December 17, 2016 20:09 - CONCLUSION: No acute intracranial findings Phil Back MD Chest X-Ray 12/16/16 1829 Signed Impressions: Service Date/Time: Friday, December 16, 2016 18:58 - CONCLUSION: 1. Previous partial left lung resection with elevated left hemidiaphragm. Mild basilar airspace disease similar to October 30. Geqyzk-c-Rjia in superior vena cava. Postop CABG. Hans Manzanares MD Lung Scan Nuclear Medicine 12/16/16 0000 Signed Impressions: Service Date/Time: Friday, December 16, 2016 21:20 - CONCLUSION: 1. Low probability for pulmonary embolus. Hans Manzanares MD PE at Discharge GENERAL: Patient appear frail, but appears comfortable. CARDIOVASCULAR: Normal rate and regular rhythm without murmurs RESPIRATORY: Good respiratory efforts. no wheezing auscultated GASTROINTESTINAL: Abdomen soft, non-tender, non-distended. Normal active bowel sounds MUSCULOSKELETAL: Extremities without edema. NEURO: Alert & Oriented. Moves all ext x4 PSYCH: pleasant Hospital Course 71-year-old female with history of lung cancer undergoing chemotherapy presents with respiratory failure, acute exacerbation of CHF secondary to worsening anemia. Acute exacerbation of systolic CHF secondary to anemia: LVEF of 20% - Continue torsemide, metoprolol. Added lisinopril 5mg po daily as BPs have improved. Per cards, cannot undergo cardiac cath for elevated trops. Cards has cleared for discharge from a cardiac standpoint, pt to f/u w Dr. Perdomo - Strict I/O - heart healthy diet w fluid restrictions. Acute respiratory failure: Secondary to above. Markedly improved. - on RA. per RN pt passed the walk test. Severe anemia: Likely secondary to chemotherapy. No signs of active bleeding. - Status post 2 units of PRBC transfusions. H&H stable at 9.4 -Continue to trend. I have discussed w heme/onc and pt can be discharged from their standpoint. - onc will monitor CBC as an outpatient. -F/U w Dr. Neville in 1 week- s/p chemo 3 weeks ago. Markedly elevated LFTs: Could be shock liver from CHF vs possible drug-induced. - GI following. Hepatitis workup ongoing. hepatitis panel neg. - LFTs trending down. Continue to monitor. - She has been cleared by GI but needs to f/u w them in 1-2 weeks. hypokalemia: K 3.4 today. give 40meq po now. replace mag w 1 g mag sulfate IVx1 Diabetes mellitus: - Sliding scale insulin with Accu-Cheks. CAD - s/p CABG. cardiology following. Patient has allergy to aspirin. Cardiology would eventually like her to being on Plavix but unable to do that secondary to low platelets. Pt Condition on Discharge: Stable Discharge Disposition: Disch w/ Home Health Serv Discharge Time: > 30 minutes Discharge Instructions DIET: Follow Instructions for: Heart Healthy Diet, Diabetic Diet Fluid Restrictions: 1500ml/day Activities you can perform: Regular-No Restrictions Follow up Referrals: Cardiology - [address] Perdomo Gastroenterology - 1 Week Oncology/Hematology - 1 Week PCP Follow-up - 1 Week New Medications: Azithromycin (Azithromycin) 500 Mg Tab 500 MG PO DAILY for Infection, #1 TAB 0 Refills Ciprofloxacin (Cipro) 500 Mg Tab 500 MG PO BID for Infection, #8 TAB 0 Refills Nebulizer (Nebulizer) 1 Mis Mis EA .ROUTE DIRECTED for Breathing Treatment, #1 0 Refills Ipratropium-Albuterol Neb (Duoneb) 0.5-2.5 Mg/3 Ml Neb 1 AMPULE NEB Q8HR, #1 BOX Lisinopril (Lisinopril) 5 Mg Tab 2.5 MG PO DAILY, #30 TAB Continued Medications: Albuterol 6.7 GM Inh (Proventil Hfa 6.7 GM Inh) 90 Mcg/Act Aer 1 PUFF INH Q4H PRN for SHORTNESS OF BREATH, #1 INHALER 0 Refills Fish Oil-Cholecalciferol (Fish Oil + D3) 1,200-1,000 Mg-Unit Cap 1 CAP PO DAILY for Nutritional Supplement, #30 CAP 0 Refills Fluticasone-Salmeterol Inh (Advair Diskus Inh) 100-50 Mcg/Blist Aer 1 PUFF INH BID for Asthma Management, #1 INHALER 0 Refills Rinse mouth after use. Glimepiride (Glimepiride) 2 Mg Tab 6 MG PO DAILY for Blood Sugar Management, #30 TAB 0 Refills Take with breakfast or first main meal Levothyroxine (Levothyroxine) 112 Mcg Tab 112 MCG PO DAILY for Thyroid, #30 TAB 0 Refills Metformin (Metformin) 1,000 Mg Tab 1000 MG PO BIDPC for Blood Sugar Management, #60 TAB 0 Refills With meals Metoprolol Tartrate (Metoprolol Tartrate) 50 Mg Tab 50 MG PO BID, #60 TAB 0 Refills (This prescription has been renewed) Omeprazole (Omeprazole) 40 Mg Cap 40 MG PO DAILY, #30 CAP 0 Refills Torsemide (Torsemide) 5 Mg Tab 10 MG PO BID@09,18 for heart, #60 TAB (This prescription has been renewed) Beverly Kidd MD Dec 20, 2016 11:58
--- NOTE | 2016-12-20 11:59 | HHI.FF ---
Face to Face Verification Diagnosis: (1) Congestive heart failure (2) Liver failure, acute Physical Therapy Order: Evaluate and Treat Home Health Nursing Order: CHF education Nursing assessment with vital signs I have seen patient Cari Andrade on 12/20/16. My clinical findings support the need for the requested home health care services because: Pt was evaluated by PT here and they recommend home health PT Ltd mobility - disease progression Patient has SOB I certify that my clinical findings support that this patient is homebound because: Pt was evaluated by PT here and they recommend home health PT Unsteady gait/balance Beverly Kidd MD Dec 20, 2016 11:59
[2016-12-20] MEDS ORDERED: NEBULIZER1 MI1 (12:00)
[2016-12-20] MEDS ORDERED: SODIUM CHLORIDE 0.9% FLUSH 10 ML FLUSH IV FLUSH PRN (12:15)
--- NOTE | 2016-12-20 13:19 | PD.ONC.PN ---
Subjective Subjective Remarks Afebrile overnight Excited to be going home today Reports she overall feels much better Objective Data Date Time Temp Pulse Resp B/P (MAP) Pulse Ox O2 Delivery O2 Flow Rate FiO2 12/20/16 08:00 97.6 66 12 137/64 (88) 100 12/20/16 08:00 66 12/20/16 07:55 99 21 12/20/16 04:00 98.2 69 21 144/62 (89) 99 12/20/16 04:00 69 12/20/16 00:00 98.0 69 24 100 12/20/16 00:00 69 12/19/16 20:00 97.8 64 16 130/62 (84) 100 12/19/16 20:00 64 12/19/16 19:34 100 12/19/16 16:00 98.0 68 23 123/59 (80) 96 12/19/16 16:00 64 12/20/16 12/20/16 12/20/16 07:00 15:00 23:00 Intake Total 386 ml 200 ml Output Total 1700 ml 300 ml Balance -1314 ml -100 ml Result Diagram: 12/20/16 0546 12/20/16 0546 Laboratory Results Laboratory Tests Test 12/19/16 18:28 12/20/16 05:46 White Blood Count 6.6 TH/MM3 Red Blood Count 2.95 MIL/MM3 Hemoglobin 9.4 GM/DL Hematocrit 27.0 % Mean Corpuscular Volume 91.7 FL Mean Corpuscular Hemoglobin 32.0 PG Mean Corpuscular Hemoglobin Concent 34.9 % Red Cell Distribution Width 18.0 % Platelet Count 60 TH/MM3 Mean Platelet Volume 9.7 FL Neutrophils (%) (Auto) 64.4 % Lymphocytes (%) (Auto) 23.7 % Monocytes (%) (Auto) 11.5 % Eosinophils (%) (Auto) 0.1 % Basophils (%) (Auto) 0.3 % Neutrophils # (Auto) 4.2 TH/MM3 Lymphocytes # (Auto) 1.6 TH/MM3 Monocytes # (Auto) 0.8 TH/MM3 Eosinophils # (Auto) 0.0 TH/MM3 Basophils # (Auto) 0.0 TH/MM3 CBC Comment AUTO DIFF Differential Total Cells Counted 100 Neutrophils % (Manual) 56 % Band Neutrophils % 18 % Lymphocytes % 11 % Monocytes % 11 % Neutrophils # (Manual) 5.1 TH/MM3 Metamyelocytes 2 % Myelocytes 2 % Nucleated Red Blood Cells 2 /100 WBC Differential Comment FINAL DIFF MANUAL Platelet Estimate LOW Platelet Morphology Comment NORMAL Ovalocytes 1+ Blood Urea Nitrogen 39 MG/DL Creatinine 0.80 MG/DL Random Glucose 136 MG/DL Total Protein 6.8 GM/DL Albumin 2.6 GM/DL Calcium Level 8.3 MG/DL Magnesium Level 1.4 MG/DL Alkaline Phosphatase 214 U/L Aspartate Amino Transf (AST/SGOT) 222 U/L Alanine Aminotransferase (ALT/SGPT) 1253 U/L Total Bilirubin 1.0 MG/DL Direct Bilirubin 0.5 MG/DL Sodium Level 137 MEQ/L Potassium Level 3.4 MEQ/L Chloride Level 99 MEQ/L Carbon Dioxide Level 29.9 MEQ/L Anion Gap 8 MEQ/L Estimat Glomerular Filtration Rate 71 ML/MIN Indirect Bilirubin 0.5 MG/DL Administered Medications Medications (Trade) Dose Ordered Sig/Hiral Route PRN Reason Start Time Stop Time Status Last Admin Dose Admin Albuterol Sulfate (Proair Hfa Inh) 1 puff Q4H PRN INH SHORTNESS OF BREATH 12/16/16 21:00 12/17/16 08:27 Levothyroxine Sodium (Synthroid) 112 mcg DAILY@0600 PO 12/17/16 06:00 12/20/16 06:16 Metoprolol Tartrate (Lopressor) 50 mg BID PO 12/16/16 21:00 12/20/16 08:08 Torsemide (Demadex) 10 mg BID@09,18 PO 12/17/16 09:00 12/20/16 08:01 Budesonide/ Formoterol Fumarate (Symbicort 80-4.5 Mcg Inh) 2 puff BID INH 12/16/16 21:15 12/19/16 21:51 Sodium Chloride (NS Flush) 2 ml BID IV FLUSH 12/16/16 21:00 12/20/16 08:03 Morphine Sulfate (Morphine Inj) 2 mg Q2H PRN IV PUSH PAIN SCALE 6 TO 10 12/16/16 21:00 12/17/16 00:11 Pantoprazole Sodium (Protonix Inj) 40 mg BID IV PUSH 12/16/16 21:00 12/20/16 08:02 Zolpidem Tartrate (Ambien) 5 mg HS PRN PO INSOMNIA 10/22/17 21:00 12/19/16 21:49 Miscellaneous Information 1 Q361D XX 12/16/16 21:00 12/16/16 22:15 Chlorhexidine Gluconate (Chlorhexidine 2% Cloth) 3 pack Taper DAILY@04 TOP 12/17/16 04:00 12/13/17 03:59 12/20/16 04:00 Senna/Docusate Sodium (Antoinette-Colace) 1 tab BID PO 12/16/16 21:00 12/20/16 08:01 Azithromycin 500 mg/Sodium Chloride 250 ml @ 250 mls/hr Q24H IV 12/17/16 02:00 12/20/16 02:00 Aztreonam 2000 mg/ Sodium Chloride 100 ml @ 200 mls/hr Q6H IV 12/17/16 03:00 12/20/16 08:02 Albuterol/ Ipratropium (Duoneb Neb) 1 ampule Q4HR NEB NEB 12/17/16 12:00 12/20/16 12:01 Lactulose (Lactulose Liq) 15 ml BID PO 12/17/16 21:00 12/20/16 08:01 Insulin Aspart (NovoLOG SUPPLEMENTAL SCALE) 1 ACHS SLIDING SCALE SQ 12/18/16 12:00 12/20/16 12:00 Lisinopril (Prinivil) 2.5 mg DAILY PO 12/20/16 09:00 12/20/16 08:09 Objective Remarks GENERAL: Chronically ill appearing female upright in chair next to bed. SKIN: Warm and dry. HEAD: Normocephalic. EYES: No injection or drainage. NECK: Supple, trachea midline. CARDIOVASCULAR: Regular rate and rhythm RESPIRATORY: Largely clear posteriorly. Breathing unlabored. Getting a breathing treatment on exam GASTROINTESTINAL: Abdomen soft, non-tender, nondistended. EXTREMITIES: No cyanosis NEUROLOGICAL: Awake and alert, normal speech. Assessment/Plan Problem List: (1) Anemia due to chemotherapy ICD Codes: D64.81 - Anemia due to antineoplastic chemotherapy; T45.1X5A - Adverse effect of antineoplastic and immunosuppressive drugs, initial encounter Plan: 12/19: Cytopenias improving. Okay for discharge from oncology standpoint. We will schedule CBC in clinic tomorrow in follow-up with Dr. Sorathia next week. --Severe anemia and thrombocytopenia due to recent chemotherapy. --monitor and transfuse as needed. (2) Congestive heart failure ICD Codes: I50.9 - Heart failure, unspecified Plan: --cardiology following and managing (3) Hepatic congestion ICD Codes: K76.1 - Chronic passive congestion of liver Plan: --Liver failure due to congestive heart failure, right-sided. -- GI following (4) Lung cancer ICD Codes: C34.90 - Malignant neoplasm of unspecified part of unspecified bronchus or lung Status: Acute Plan: no treatment while inpatient --diagnosed with non-small cell lung cancer, adenocarcinoma in May of this year. --underwent resection of the left upper lower lobe. --pathology report showed moderately differentiated adenocarcinoma at 2.4 cm with the visceral pleural invasion. N1 lymph nodes were negative; N2 lymph nodes were positive 03/05. --had a Stage III fum-muuiw-knao lung cancer. --was started on adjuvant carboplatin and Gemzar chemotherapy on September 21. --Last chemotherapy was 3 weeks ago. (5) thrombocytopenia due to chemotherapy Plan: --monitor and transfuse as needed Assessment 71y/o female admitted with dyspnea, CHF, hepatic congestion. Oncology consulted for lung cancer and anemia. h/o Non-small cell lung cancer diagnosed in June of this year. currently on adjuvant chemotherapy, carboplatin and Gemzar. Asthma. COPD. Congestive heart failure. Diabetes mellitus. Coronary artery disease status post [place]. Hypercholesteremia. Hypothyroidism. Multiple sclerosis. History of stroke. Attending Statement feels better Denies SOB OK to d/c will follow up in the office next week. Problem Qualifiers (1) Congestive heart failure: Qualified Codes: I50.20 - Unspecified systolic (congestive) heart failure María Elena Soni Dec 20, 2016 13:19 Jose Neville MD Dec 20, 2016 17:40
--- NOTE | 2016-12-20 13:53 | PD.CARD.PN ---
Subjective Subjective Remarks No chest pain SOB better, on room air Feels great overall Objective Medications Current Medications Medications (Trade) Dose Ordered Sig/Hiral Route Start Time Stop Time Status Last Admin (Proair Hfa Inh) 1 puff Q4H PRN INH 12/16/16 21:00 12/17/16 08:27 (Synthroid) 112 mcg DAILY@0600 PO 12/17/16 06:00 12/20/16 06:16 (Lopressor) 50 mg BID PO 12/16/16 21:00 12/20/16 08:08 (Demadex) 10 mg BID@09,18 PO 12/17/16 09:00 12/20/16 08:01 (Symbicort 80-4.5 Mcg Inh) 2 puff BID INH 12/16/16 21:15 12/19/16 21:51 (NS Flush) 2 ml UNSCH PRN IV FLUSH 12/16/16 21:00 (NS Flush) 2 ml BID IV FLUSH 12/16/16 21:00 12/20/16 08:03 (Tylenol) 650 mg Q6H PRN PO 12/16/16 21:00 (Morphine Inj) 2 mg Q2H PRN IV PUSH 12/16/16 21:00 12/17/16 00:11 (Protonix Inj) 40 mg BID IV PUSH 12/16/16 21:00 12/20/16 08:02 (Zofran Inj) 4 mg Q6H PRN IV PUSH 12/16/16 21:00 (Ambien) 5 mg HS PRN PO 12/16/16 21:00 12/19/16 21:49 Miscellaneous Information 1 Q361D XX 12/16/16 21:00 12/16/16 22:15 (Chlorhexidine 2% Cloth) 3 pack Taper DAILY@04 TOP 12/17/16 04:00 12/13/17 03:59 12/20/16 04:00 (Chlorhexidine 2% Cloth) 3 pack UNSCH PRN TOP 12/16/16 21:00 (Antoinette-Colace) 1 tab BID PO 12/16/16 21:00 12/20/16 08:01 (Milk Of Magnesia Liq) 30 ml Q12H PRN PO 12/16/16 21:00 (Senokot) 17.2 mg Q12H PRN PO 12/16/16 21:00 (Dulcolax Supp) 10 mg DAILY PRN RECTAL 12/16/16 21:00 (Lactulose Liq) 30 ml DAILY PRN PO 12/16/16 21:00 Azithromycin 500 mg/Sodium Chloride 250 ml @ 250 mls/hr Q24H IV 12/17/16 02:00 12/20/16 02:00 Aztreonam 2000 mg/ Sodium Chloride 100 ml @ 200 mls/hr Q6H IV 12/17/16 03:00 12/20/16 08:02 (Duoneb Neb) 1 ampule Q4HR NEB NEB 12/17/16 12:00 12/20/16 12:01 (Duoneb Neb) 1 ampule Q2HR NEB PRN NEB 12/17/16 09:45 (Lactulose Liq) 15 ml BID PO 12/17/16 21:00 12/20/16 08:01 (D50w (Vial) Inj) 50 ml UNSCH PRN IV PUSH 12/18/16 10:30 (Glucagon Inj) 1 mg UNSCH PRN OTHER 12/18/16 10:30 (NovoLOG SUPPLEMENTAL SCALE) 1 ACHS SLIDING SCALE SQ 12/18/16 12:00 12/20/16 12:00 (Prinivil) 2.5 mg DAILY PO 12/20/16 09:00 12/20/16 08:09 (Pill Splitter) 1 ea UNSCH PRN OTHER 12/20/16 08:15 (Heparin Central Flush) 250 units UNSCH PRN IV FLUSH 12/20/16 12:15 (Heparin Central Flush) 500 units UNSCH IV FLUSH 12/20/16 12:15 (NS Flush) 5 ml UNSCH PRN IV FLUSH 12/20/16 12:15 Vital Signs / I&O Vital Signs Date Time Temp Pulse Resp B/P (MAP) Pulse Ox O2 Delivery O2 Flow Rate FiO2 12/20/16 13:00 65 33 98 12/20/16 13:00 65 12/20/16 12:00 64 12/20/16 12:00 64 12/20/16 12:00 96.8 64 20 119/54 (75) 100 12/20/16 10:48 63 12/20/16 10:00 73 12/20/16 09:00 75 12/20/16 08:00 97.6 66 12 137/64 (88) 100 12/20/16 08:00 66 12/20/16 07:55 99 21 12/20/16 04:00 98.2 69 21 144/62 (89) 99 12/20/16 04:00 69 12/20/16 00:00 98.0 69 24 100 12/20/16 00:00 69 12/19/16 20:00 97.8 64 16 130/62 (84) 100 12/19/16 20:00 64 12/19/16 19:34 100 12/19/16 16:00 98.0 68 23 123/59 (80) 96 12/19/16 16:00 64 I/O 12/19/16 12/19/16 12/19/16 12/20/16 12/20/16 12/20/16 07:00 15:00 23:00 07:00 15:00 23:00 Intake Total 830 ml 200 ml 1160 ml 386 ml 1500 ml Output Total 1225 ml 1875 ml 1700 ml 950 ml Balance -395 ml 200 ml -715 ml -1314 ml 550 ml Intake Oral 480 ml 960 ml 120 ml 1300 ml IV Total 350 ml 200 ml 200 ml 266 ml 200 ml Output Urine Total 1225 ml 1875 ml 1700 ml 950 ml # Voids 3 # Bowel Movements 0 0 0 Physical Exam GENERAL: NAD, AAOx3 SKIN: Warm and dry. HEAD: Atraumatic. Normocephalic. EYES: Pupils equal and round. No scleral icterus. No injection or drainage. ENT: No nasal bleeding or discharge. Mucous membranes pink and moist. NECK: Trachea midline. No JVD. CARDIOVASCULAR: Regular rate and rhythm. RESPIRATORY: No accessory muscle use. CTA B/L GASTROINTESTINAL: Abdomen soft, non-tender, nondistended. Hepatic and splenic margins not palpable. MUSCULOSKELETAL: Extremities without clubbing, cyanosis, or edema. No obvious deformities. NEUROLOGICAL: Awake and alert. No obvious cranial nerve deficits. Motor grossly within normal limits. Five out of 5 muscle strength in the arms and legs. Normal speech. PSYCHIATRIC: Appropriate mood and affect; insight and judgment normal. Laboratory Laboratory Tests Test 12/19/16 18:28 12/20/16 05:46 White Blood Count 6.6 TH/MM3 Red Blood Count 2.95 MIL/MM3 Hemoglobin 9.4 GM/DL Hematocrit 27.0 % Mean Corpuscular Volume 91.7 FL Mean Corpuscular Hemoglobin 32.0 PG Mean Corpuscular Hemoglobin Concent 34.9 % Red Cell Distribution Width 18.0 % Platelet Count 60 TH/MM3 Mean Platelet Volume 9.7 FL Neutrophils (%) (Auto) 64.4 % Lymphocytes (%) (Auto) 23.7 % Monocytes (%) (Auto) 11.5 % Eosinophils (%) (Auto) 0.1 % Basophils (%) (Auto) 0.3 % Neutrophils # (Auto) 4.2 TH/MM3 Lymphocytes # (Auto) 1.6 TH/MM3 Monocytes # (Auto) 0.8 TH/MM3 Eosinophils # (Auto) 0.0 TH/MM3 Basophils # (Auto) 0.0 TH/MM3 CBC Comment AUTO DIFF Differential Total Cells Counted 100 Neutrophils % (Manual) 56 % Band Neutrophils % 18 % Lymphocytes % 11 % Monocytes % 11 % Neutrophils # (Manual) 5.1 TH/MM3 Metamyelocytes 2 % Myelocytes 2 % Nucleated Red Blood Cells 2 /100 WBC Differential Comment FINAL DIFF MANUAL Platelet Estimate LOW Platelet Morphology Comment NORMAL Ovalocytes 1+ Blood Urea Nitrogen 39 MG/DL Creatinine 0.80 MG/DL Random Glucose 136 MG/DL Total Protein 6.8 GM/DL Albumin 2.6 GM/DL Calcium Level 8.3 MG/DL Magnesium Level 1.4 MG/DL Alkaline Phosphatase 214 U/L Aspartate Amino Transf (AST/SGOT) 222 U/L Alanine Aminotransferase (ALT/SGPT) 1253 U/L Total Bilirubin 1.0 MG/DL Direct Bilirubin 0.5 MG/DL Sodium Level 137 MEQ/L Potassium Level 3.4 MEQ/L Chloride Level 99 MEQ/L Carbon Dioxide Level 29.9 MEQ/L Anion Gap 8 MEQ/L Estimat Glomerular Filtration Rate 71 ML/MIN Indirect Bilirubin 0.5 MG/DL Assessment and Plan Problem List: (1) Congestive heart failure ICD Codes: I50.9 - Heart failure, unspecified (2) Anemia due to chemotherapy ICD Codes: D64.81 - Anemia due to antineoplastic chemotherapy; T45.1X5A - Adverse effect of antineoplastic and immunosuppressive drugs, initial encounter (3) thrombocytopenia due to chemotherapy (4) Lung cancer ICD Codes: C34.90 - Malignant neoplasm of unspecified part of unspecified bronchus or lung Status: Acute (5) Hepatic congestion ICD Codes: K76.1 - Chronic passive congestion of liver (6) Symptomatic anemia ICD Codes: D64.9 - Anemia, unspecified Status: Acute (7) Elevated troponin ICD Codes: R74.8 - Abnormal levels of other serum enzymes Status: Acute (8) Hypoxia ICD Codes: R09.02 - Hypoxemia Status: Acute Assessment and Plan 1) Acute systolic heart failure Appears compensated 2) EF 20-25% Con't BB LUIS CARLOS-I added 3) Elevated troponin Unable to undergo cardiac catheterization due to thrombocytopenia Con't medical management 4) Hepatic congestion 5) Lung cancer 6) ASA allergy If platelets increase lobsterman, consider Plavix outpt Problem Qualifiers (1) Congestive heart failure: Qualified Codes: I50.20 - Unspecified systolic (congestive) heart failure Sher Ramos DO Dec 20, 2016 13:53
[2016-12-21 03:51] LABS: MITOCHONDRIAL ABS LESS THAN 20.0 U (<=20.0)
== END 2016-12-20 14:40 | disposition home or self-care (01) | DRG 808 ==
LOC: NEPC 18:14 → NEDA 20:34 → HIME 22:10
PROVIDERS: ADMIT Hospitalist; ATTEND Hospitalist
PROC: 30233N1 Transfusion of Nonautologous Red Blood Cells into Peripheral Vein, Percutaneous Approach (ICD-10-PCS; principal; 2016-12-16)
DX: D61.810 Antineoplastic chemotherapy induced pancytopenia (principal); K72.00 Acute and subacute hepatic failure without coma; J96.01 Acute respiratory failure with hypoxia; I50.23 Acute on chronic systolic (congestive) heart failure; I13.0 Hypertensive heart and chronic kidney disease with heart failure and stage 1 through stage 4 chronic kidney disease, or unspecified chronic kidney disease; C78.2 Secondary malignant neoplasm of pleura; N17.9 Acute kidney failure, unspecified; C77.1 Secondary and unspecified malignant neoplasm of intrathoracic lymph nodes; C34.92 Malignant neoplasm of unspecified part of left bronchus or lung; I25.10 Atherosclerotic heart disease of native coronary artery without angina pectoris; J44.9 Chronic obstructive pulmonary disease, unspecified; E87.5 Hyperkalemia; G35 Multiple sclerosis; K21.9 Gastro-esophageal reflux disease without esophagitis; H91.90 Unspecified hearing loss, unspecified ear; L40.9 Psoriasis, unspecified; F17.210 Nicotine dependence, cigarettes, uncomplicated; E87.6 Hypokalemia; E03.9 Hypothyroidism, unspecified; K76.1 Chronic passive congestion of liver; E11.22 Type 2 diabetes mellitus with diabetic chronic kidney disease; N18.9 Chronic kidney disease, unspecified; E66.9 Obesity, unspecified; E78.5 Hyperlipidemia, unspecified; Z95.1 Presence of aortocoronary bypass graft; I25.2 Old myocardial infarction; Z86.73 Personal history of transient ischemic attack (TIA), and cerebral infarction without residual deficits; Z79.84 Long term (current) use of oral hypoglycemic drugs
CPT/HCPCS: 36430; 36600; 70450; 71010; 76705; 78580; 80048; 80053; 80074; 80076; 80307; 81001; 81256; 82103; 82105; 82140; 82390; 82550; 82552; 82728; 82805; 82948; 83520; 83540; 83550; 83690; 83735; 83880; 84100; 84443; 84484; 85007; 85027; 85384; 85610; 85730; 86038; 86255; 86850; 86900; 86901; 86920; 87040; 87077; 87086; 87186; 87449; 87641; 93005; 93306; 94620; 94640; 94664; A9540; C9113; J0330; J0456; J1815; J1817; J1940; J2270; J2920; J3475; J3480; J7030; J7050; P9016

== ENCOUNTER 2016-12-21 04:49 | Emergency (ER) | payer MEDICARE, OTHER ==
[~2016-12-21] VITALS: Ht 154.9 cm; Wt 75.0 kg
[~2016-12-21 04:49] MED LIST changes: +AZIT500T2 PO; +CIPR-9 PO; +IPRASOL NEB; -LEVA500T20 PO; +LISI-519 PO; +NEBULIZER1 MI1
[2016-12-21 04:52] VITALS: BP 140/62; PULSE 75; RESP 16; TEMP 98; O2SAT 98
--- NOTE | 2016-12-21 05:23 | PD ---
HPI Chief Complaint: Fall Time Seen by Provider: 05:19 Travel History International Travel<30 days: No Contact w/Intl Traveler<30days: No Traveled to known affect area: No History of Present Illness HPI 71-year-old female came to the emergency room with history of recurrent falls after she was discharged from the hospital yesterday afternoon. Patient says that after she went home she has fallen 3 times. Each time is after taking minimal steps. The last time was an hour or 2 ago when she tried to get out of the bed and her legs gave way and she fell. Vital signs are stable. She is awake and answering questions appropriately. She says she has history of cancer and her oncologist is Dr. Huynh. She is not complaining of any pain. Patient had physical therapy and occupational therapy evaluation before she went home. Patient says that she was supposed to be sent for rehabilitation but patient refused to go and wanted to go home. She says she started about the decision now. She was told that she would get once a week home healthcare and "nobody has come in yet". REPLACED BY [facility] Past Medical History Narrative Medical List of her past medical, surgical, social and family history is reviewed from the nursing note. Arthritis: Yes Asthma: Yes Autoimmune Disease: Yes (SEE ABOVE) Blood Disorders: No Heart Rhythm Problems: Yes Cancer: Yes (lung cancer) Cardiac Catheterization: Yes Cardiovascular Problems: Yes (cabg) High Cholesterol: Yes Chemotherapy: Yes (3 wk ago) Chest Pain: Yes Congestive Heart Failure: No Cirrhosis: Yes COPD: Yes Cerebrovascular Accident: Yes Coronary Artery Disease: Yes Diabetes: Yes (TYPE 2) Patient Takes Glucophage: Yes Diminished Hearing: Yes (BOTH PARTIAL) Endocrine: Yes Gastrointestinal Disorders: Yes GERD: Yes Glaucoma: No Genitourinary: No Headaches: Yes Hepatitis: No Hiatal Hernia: No Heparin Induced Thrombocytopen: No Hypertension: Yes Immune Disorder: Yes (MULTIPLE SCLEROSIS) Implanted Vascular Access Dvce: No Medical other: No Musculoskeletal: Yes Neurologic: Yes (MS) Psychiatric: No Reproductive: No Respiratory: Yes (copd) Integumentary: Yes (PSORIASIS) Immunizations Current: Yes Migraines: No Myocardial Infarction: Yes (2006) Radiation Therapy: No Renal Failure: No Seizures: No Sickle Cell Disease: No Sleep Apnea: Yes Thyroid Disease: Yes Ulcer: No Tetanus Vaccination: Unknown Influenza Vaccination: Yes Menopausal: Yes Past Surgical History Abdominal Surgery: Yes (EXP LAP) AICD: No Appendectomy: No Arteriovenous Shunt: No Cardiac Surgery: Yes (CABG ) Cholecystectomy: No Coronary Artery Bypass Graft: Yes (X4 1999) Ear Surgery: No Endocrine Surgery: No Eye Surgery: Yes (bilateral cataract sx) Genitourinary Surgery: No Gynecologic Surgery: Yes (HYSTERECTOMY) Hysterectomy: Yes Insulin Pump: No Joint Replacement: No Neurologic Surgery: No Oral Surgery: Yes (TEETH REMOVED) Pacemaker: No Thoracic Surgery: Yes (CABG, left thoracoty andry lobectomy) Other Surgery: Yes Social History Alcohol Use: No (NONE SINCE 1979) Tobacco Use: No (APPROX 1 PPD X 50 YRS, RECENTLY DOWN TO 10 CIAGARETTES / DAY) Substance Use: No Allergies-Medications (Allergen,Severity, Reaction): Coded Allergies: Sulfa (Sulfonamide Antibiotics) (Unverified Allergy, Severe, Swelling, ) aspirin (Unverified Allergy, Severe, Swelling, 12/21/16) atorvastatin (Unverified Allergy, Severe, VOMITING, 12/21/16) clarithromycin (Unverified Allergy, Severe, Swelling, 12/21/16) penicillin G (Unverified Allergy, Severe, Swelling, 12/21/16) Comments List of her allergies reviewed from the nursing note. Reported Meds & Prescriptions Reported Meds & Active Scripts Active Nebulizer 1 Mis Mis Ea .ROUTE DIRECTED Cipro (Ciprofloxacin HCl) 500 Mg Tab 500 Mg PO BID Azithromycin 500 Mg Tab 500 Mg PO DAILY Torsemide 5 Mg Tab 10 Mg PO BID@,18 Metoprolol Tartrate 50 Mg Tab 50 Mg PO BID Lisinopril 5 Mg Tab 2.5 Mg PO DAILY Duoneb (Ipratropium-Albuterol Neb) 0.5-2.5 Mg/3 Ml Neb 1 Ampule NEB Q8HR Reported Metformin (Metformin HCl) 1,000 Mg Tab 1,000 Mg PO BIDPC With meals Fish Oil + D3 (Fish Oil-Cholecalciferol) 1,200-1,000 Mg-Unit Cap 1 Cap PO DAILY Omeprazole 40 Mg Cap 40 Mg PO DAILY Levothyroxine (Levothyroxine Sodium) 112 Mcg Tab 112 Mcg PO DAILY Glimepiride 2 Mg Tab 6 Mg PO DAILY Take with breakfast or first main meal Proventil Hfa 6.7 GM Inh (Albuterol Sulfate) 90 Mcg/Act Aer 1 Puff INH Q4H PRN Advair Diskus Inh (Fluticasone-Salmeterol Inh) 100-50 Mcg/Blist Aer 1 Puff INH BID Rinse mouth after use. Narrative Medication List of her home medications reviewed from the nursing note. Review of Systems Except as stated in HPI: all other systems reviewed are Neg Neurologic: Positive: Weakness Physical Exam Narrative GENERAL: Awake, alert, looks older than her age, no obvious distress SKIN: Focused skin assessment warm/dry. Pale HEAD: Atraumatic. Normocephalic. EYES: Pupils equal and round. No scleral icterus. No injection or drainage. ENT: No nasal bleeding or discharge. Mucous membranes pink and moist. NECK: Trachea midline. No JVD. CARDIOVASCULAR: Regular rate and rhythm. No murmur appreciated. RESPIRATORY: No accessory muscle use. Clear to auscultation. Breath sounds equal bilaterally. GASTROINTESTINAL: Abdomen soft, non-tender, nondistended. Hepatic and splenic margins not palpable. MUSCULOSKELETAL: No obvious deformities. No clubbing. No cyanosis. No edema. NEUROLOGICAL: Awake and alert. No obvious cranial nerve deficits. Motor grossly within normal limits. Normal speech. PSYCHIATRIC: Appropriate mood and affect; insight and judgment normal. Data Data Last Documented VS Orders Orders Consult Pt Eval & Treat (12/21/16 05:28) Ot Request For Service (12/21/16 05:28) (Hub Use Only)Inp Phy Cons/Ref (12/21/16 ) MDM Medical Decision Making Medical Screen Exam Complete: Yes Emergency Medical Condition: Yes Medical Record Reviewed: Yes Differential Diagnosis Generalized weakness, frequent falls Narrative Course 6:45 AM I have ordered a new physical therapy and occupational therapy evaluation for this patient. Case will be signed over to the oncoming ER physician. Procedures EKG Prior to Arrival: Matthew Serrato MD Dec 21, 2016 05:23
--- NOTE | 2016-12-21 06:57 | PD ---
Physical Exam Date Seen by Provider: Dec 21, 2016 Time Seen by Provider: 06:56 Narrative The patient is a 71-year-old female who presents to the emergency department for multiple falls. The patient was initially evaluated by the previous physician, Dr. Mon. Please refer to the initial history, physical, diagnostic evaluation, and treatment modality plan. Data Data Last Documented VS Vital Signs Date Time Temp Pulse Resp B/P (MAP) Pulse Ox O2 Delivery O2 Flow Rate FiO2 12/21/16 16:40 12/21/16 04:52 98.0 75 16 98 Room Air Orders Orders Consult Pt Eval & Treat (12/21/16 05:28) Ot Request For Service (12/21/16 05:28) (Hub Use Only)Inp Phy Cons/Ref (12/21/16 ) MDM Medical Record Reviewed: Yes Supervised Visit with ARSLAN: No Differential Diagnosis Differential diagnosis includes generalized weakness, inability care for self, UTI, hyponatremia, dehydration, deconditioning. Narrative Course The patient was initially evaluated by the previous physician, Dr. Mon. Please refer to the initial history, physical, diagnostic evaluation, and treatment modality plan. The patient was signed out by the previous physician, Dr. Mon, 7 AM with physical therapy evaluation pending. The patient apparently is unable to take care of her self and is unable to mobilize in the home setting. She does have home healthcare that comes once a week. However, according the previous physician the patient will need PT evaluation possible placement. The patient was evaluated by physical therapy, does have needs and would benefit from rehabilitation. I discussed the case management assistant who contacted Skip Rosariochris, the patient will be admitted to carp discharged from the emergency department. Diagnosis Primary Impression: Physical deconditioning Disposition: 70 TRANSFER TO OTHER FACILITY (transfer to [facility] facility) Condition: Stable Rodriguez Hoffman MD Dec 21, 2016 06:57
--- NOTE | 2016-12-21 06:57 | PD ---
Physical Exam Date Seen by Provider: Dec 21, 2016 Time Seen by Provider: 06:56 Narrative The patient is a 71-year-old female who presents to the emergency department for multiple falls. The patient was initially evaluated by the previous physician, Dr. Mon. Please refer to the initial history, physical, diagnostic evaluation, and treatment modality plan. Data Data Last Documented VS Vital Signs Date Time Temp Pulse Resp B/P (MAP) Pulse Ox O2 Delivery O2 Flow Rate FiO2 12/21/16 16:40 12/21/16 04:52 98.0 75 16 98 Room Air Orders Orders Consult Pt Eval & Treat (12/21/16 05:28) Ot Request For Service (12/21/16 05:28) (Hub Use Only)Inp Phy Cons/Ref (12/21/16 ) MDM Medical Record Reviewed: Yes Supervised Visit with ARSLAN: No Differential Diagnosis Differential diagnosis includes generalized weakness, inability care for self, UTI, hyponatremia, dehydration, deconditioning. Narrative Course The patient was initially evaluated by the previous physician, Dr. Mon. Please refer to the initial history, physical, diagnostic evaluation, and treatment modality plan. The patient was signed out by the previous physician, Dr. Mon, 7 AM with physical therapy evaluation pending. The patient apparently is unable to take care of her self and is unable to mobilize in the home setting. She does have home healthcare that comes once a week. However, according the previous physician the patient will need PT evaluation possible placement. The patient was evaluated by physical therapy, does have needs and would benefit from rehabilitation. I discussed the casework supervisor who contacted Skip Rosariochris, the patient will be admitted to [facility] discharged from the emergency department. Diagnosis Primary Impression: Physical deconditioning Disposition: 70 TRANSFER TO OTHER FACILITY (transfer to assisted facility) Condition: Stable Rodriguez Hoffman MD Dec 21, 2016 06:57
--- NOTE | 2016-12-21 06:57 | PD ---
Physical Exam Date Seen by Provider: Dec 21, 2016 Time Seen by Provider: 06:56 Narrative The patient is a 71-year-old female who presents to the emergency department for multiple falls. The patient was initially evaluated by the previous physician, Dr. Mon. Please refer to the initial history, physical, diagnostic evaluation, and treatment modality plan. Data Data Last Documented VS Vital Signs Date Time Temp Pulse Resp B/P (MAP) Pulse Ox O2 Delivery O2 Flow Rate FiO2 12/21/16 16:40 12/21/16 04:52 98.0 75 16 98 Room Air Orders Orders Consult Pt Eval & Treat (12/21/16 05:28) Ot Request For Service (12/21/16 05:28) (Hub Use Only)Inp Phy Cons/Ref (12/21/16 ) MDM Medical Record Reviewed: Yes Supervised Visit with ARSLAN: No Differential Diagnosis Differential diagnosis includes generalized weakness, inability care for self, UTI, hyponatremia, dehydration, deconditioning. Narrative Course The patient was initially evaluated by the previous physician, Dr. Mon. Please refer to the initial history, physical, diagnostic evaluation, and treatment modality plan. The patient was signed out by the previous physician, Dr. Mon, 7 AM with physical therapy evaluation pending. The patient apparently is unable to take care of her self and is unable to mobilize in the home setting. She does have home healthcare that comes once a week. However, according the previous physician the patient will need PT evaluation possible placement. The patient was evaluated by physical therapy, does have needs and would benefit from rehabilitation. I discussed the showcase maker who contacted Skip Rosariochris, the patient will be admitted to [facility] discharged from the emergency department. Diagnosis Primary Impression: Physical deconditioning Disposition: 70 TRANSFER TO OTHER FACILITY (transfer to care home facility) Condition: Stable Rodriguez Hoffman MD Dec 21, 2016 06:57
== END 2016-12-21 17:03 | disposition short-term general hospital (02) ==
LOC: NEPC 04:49
DX: Z04.3 Encounter for examination and observation following other accident (principal); M19.90 Unspecified osteoarthritis, unspecified site; J45.909 Unspecified asthma, uncomplicated; E11.9 Type 2 diabetes mellitus without complications; J44.9 Chronic obstructive pulmonary disease, unspecified; I10 Essential (primary) hypertension; G35 Multiple sclerosis; K74.60 Unspecified cirrhosis of liver; Z91.81 History of falling
CPT/HCPCS: 97162; 97166; 99285; G8987; G8988